=== PATIENT | male | born 1935 | race Caucasian/White ===

== ENCOUNTER 2022-12-04 12:13 | Outpatient (OUT) | payer MEDICARE, SELFPAY ==
--- NOTE | 2022-12-04 13:01 | PM.CN ---
Consult Note: HPI Data of Consult Patient: new to practice Consult date: 12/04/22 Requesting Physician: Timi Toledo MD Primary Care Provider: Non-Staff Physician, Consult Narrative Reason for consult: Low back pain Narrative: Doris 87yom who presents for evaluation. Longstanding low back pain that is worsened with standing and ambulation. Pain ongoing for years, but now worse. Denies specific trauma. Lumbar CT shows significant facet arthropathy in the lower lumbar spine. Has completed >6 weeks of provider directed home exercise program, without relief. Primarily utilizes tylenol, has tried tramadol before, with little relief. Denies adverse medication side effects. cc:: CC: Timi Toledo MD Review of Systems ROS Status of ROS 10 or more systems reviewed and unremarkable except as noted in history and below Exam Constitutional Common normals: no apparent distress, oriented x3 and healthy appearing Respiratory Common normals: normal respiratory effort Effort & inspection: able to speak in complete sentences Back & Pelvis Other: Tenderness to palpation in lower spine and paraspinal musculature. Pain elicited with flexion, extension, lateral rotation of lumbar spine. Facet loading maneuvers are positive bilaterally. Strength and sensation noted to be unremarkable except for decreased strength of 4/5 in bilateral quadriceps femoris, anterior tibialis. Coordination intact, gait mildly antalgic. Extremity Common normals: normal to inspection Neuro Common normals: oriented x3, CN's II-XII intact bilaterally and no focal motor deficits Psych Common normals: mental status grossly normal and cooperative Assessment and Plan Assessment and Plan (1) Lumbar stenosis with neurogenic claudication: (2) Lumbar spondylosis: Plan Doris 87yom who presents for evaluation. Failed >6 weeks of conservative measures, as noted above. Imaging reviewed, as noted above. Given symptoms and imaging findings, prudent to attempt diagnostic bilateral L4-5, L5-S1 medial branch blocks under fluoroscopic guidance with the intention of proceeding to radiofrequency ablation. He is in agreement. Medications reviewed. Will trial T#3 bid prn, obtain UDS today. Follow up after procedure complete.
== END 2022-12-04 12:14 | disposition home or self-care (01) ==
PROVIDERS: Visit Provider Anesthesiology
DX: M47.816 Spondylosis without myelopathy or radiculopathy, lumbar region (principal); M48.062 Spinal stenosis, lumbar region with neurogenic claudication
CPT/HCPCS: G0463

== ENCOUNTER 2023-01-01 09:48 | Day surgery (SDC) | payer MEDICARE, SELFPAY ==
[2023-01-01 10:54] VITALS: BP 125/86; PULSE 74; RESP 14; TEMP 36.3; O2SAT 95
[2023-01-01] MEDS: TRIAMCINOLONE ACETONIDE 40 MG/ML VIAL INJ (11:47)
[2023-01-01] MEDS: BUPIVACAINE HCL 0.25% PF 25 MG/10 ML VIAL INJ (11:47)
[2023-01-01] MEDS: LIDOCAINE HCL 2% PF 100 MG/5 ML VIAL INJ (11:47)
--- NOTE | 2023-01-01 11:47 | W.PM.PROCNOT ---
Date of procedure: 01/01/23 Pre-op diagnosis: Lumbar spondylosis Post-op diagnosis: same as pre-op Procedure: Procedure: Bilateral L4-5, L5-S1 medial branch block Medications: Bupivacaine 0.25% 4cc The patient was seen and examined in the preoperative holding area.? An informed consent was obtained and placed on the chart.? The patient was brought to the medical procedure unit and placed in the prone position.? A timeout was completed verifying correct patient, procedure site, positioning, plan, and special equipment.? Using aseptic technique, the needle was placed at left L4. Under direct fluoroscopic visualization a Quincke-tipped spinal needle was advanced to the junction of the superior articulating process with the transverse process at the designated medial branch segment.? Preceded by negative aspiration, the above-mentioned injectate was placed in 1 mL aliquots.? The procedure was repeated at left L5, S1.? The needle was removed and insertion site was covered. The same procedure, at the same levels, was completed on the right side. The patient was taken to the postprocedural recovery area and monitored for an appropriate length of time before found suitable for discharge in the company of a responsible adult. Anesthesia: Local Surgeon: Timi Toledo Pathology: none sent Condition: stable Disposition: no change
[2023-01-01 11:48] VITALS: BP 127/88; BP 136/77; PULSE 102; PULSE 84; RESP 18; O2SAT 97
== END 2023-01-01 12:02 | disposition home or self-care (01) ==
PROVIDERS: Visit Provider Anesthesiology
DX: M47.816 Spondylosis without myelopathy or radiculopathy, lumbar region (principal)
CPT/HCPCS: 64493; 64494

== ENCOUNTER 2023-01-17 14:08 | Outpatient (OUT) | payer MEDICARE, SELFPAY ==
--- NOTE | 2023-01-17 14:38 | PM.CN ---
Consult Note: HPI Data of Consult Patient: known to practice within the last 3 years Requesting Physician: Sana Smith NP Primary Care Provider: Non-Staff Physician, Consult Narrative Reason for consult: F/U Narrative: Vance Cosme a pleasant 77 year old male presents for evaluation of chronic low back pain and bilateral leg weakness. Today rating pain 3-4/10, patient notices increase in pain when walking and standing. Decrease in pain and weakness with sitting. Patient recently underwent bilateral L4-5 L5-S1 MBB #1 with 0% pain relief or functional improvement. Patient would like to discuss additional medication options and injection therapy. Daughter and spouse present for today's visit. cc:: CC: Sana Smith NP Review of Systems ROS Status of ROS 10 or more systems reviewed and unremarkable except as noted in history and below Musculoskeletal Reports: back pain and muscle weakness Meds Home Medications and Allergies Home Medications Medication Instructions Recorded Confirmed Type acetaminophen 300 mg-codeine 30 mg 1 tab PO BID PRN pain 12/04/22 01/01/23 History tablet acetaminophen 300 mg-codeine 30 mg 1 tab PO BID PRN pain #60 tabs 12/04/22 01/01/23 Rx tablet acetaminophen 650 mg 650 mg PO Q8H PRN pain 12/04/22 01/01/23 History tablet,extended release (8 Hour Pain Reliever) apixaban 5 mg tablet (Eliquis) 5 mg PO BID 12/04/22 01/01/23 History ascorbic acid (vitamin C) 500 mg 500 mg PO DAILY 12/04/22 01/01/23 History tablet (C-500) cholecalciferol (vitamin D3) 25 25 mcg PO DAILY 12/04/22 01/01/23 History mcg (1,000 unit) tablet (Vitamin D3) furosemide 20 mg tablet (Lasix) 20 mg PO DAILY 12/04/22 01/01/23 History magnesium 200 mg tablet 400 mg PO DAILY 12/04/22 01/01/23 History metoprolol succinate 25 mg 25 mg PO BID 12/04/22 01/01/23 History tablet,extended release 24 hr (Toprol XL) multivitamin 1 tab PO DAILY 12/04/22 01/01/23 History vitamin E 268 mg (400 unit) capsule 268 mg PO DAILY 12/04/22 01/01/23 History Allergies Allergy/AdvReac Type Severity Reaction Status Date / Time No Known Drug Allergies Allergy Verified 01/01/23 10:53 Exam Constitutional Documenting provider has reviewed patient's vital signs: yes Common normals: no apparent distress, oriented x3, healthy appearing, alert and well nourished General appearance: cooperative HENMT Common normals: normocephalic, hearing grossly normal bilaterally and moist oral mucous membranes Head and scalp: normocephalic Eye Common normals: PERRL Pupil: PERRL Neck & C-Spine Common normals: full ROM General: normal visual inspection Chest Common normals: inspection of chest normal Respiratory Common normals: normal respiratory effort, no retractions and no use of accessory muscles Back & Pelvis Lumbar spine/lower back: ROM limited, pain with ROM and straight leg raise negative bilaterally Other: weakness upon standing and with walking symptoms improved with sitting positive facet loading bilaterally Extremity Common normals: normal to inspection and full ROM Neuro Common normals: oriented x3, CN's II-XII intact bilaterally, moves all extremities, no focal motor deficits, no sensory deficits noted and deep tendon reflexes 2+ bilaterally Sensorium/orientation: alert Motor exam: strength 5/5 throughout and no movement abnormalities noted Psych Common normals: mental status grossly normal, thought process normal, cooperative, affect normal, speech normal and activity/motor behavior normal Speech: normal speech Thought process: normal thought process Results Additional Findings Additional findings: I have checked an [place] report on this patient today and there are no aberrancies noted in the prescribing history.?? A drug screen was completed and reviewed within the last year, and if there has not been a drug screen completed we ordered one today to monitor higher risk, state monitored pain medication use. As part of providing excellent, safe, comprehensive care, the following was completed at our patient's visit: 1. A medication reconciliation and review to ensure accurate knowledge of current/active medications, including asking our patients to inform us about any [id number] medications or herbal remedies/nutritional supplements/alternative remedies. 2. A review to specifically ensure our patients have had annual screening for: elevated body mass index (BMI), tobacco use, screening for depression, and screening for unhealthy alcohol use. When screening is concerning, patients are provided with education and the specific recommendation to discuss the concerning health issue and treatment options with their primary care provider. Assessment and Plan Assessment and Plan (1) Lumbar stenosis with neurogenic claudication: Assessment and Plan: The patient has had over 3 months of moderate to severe low back pain with functional impairment and inadequate response to conservative care including NSAIDS (unless there are contraindication such as concurrent blood thinners), multiple oral or topical pain medications, and home exercise program/physical therapy.? Patient has completed >6 weeks of guided home exercise program and/or formal physical therapy program without relief of their symptoms.? I have reviewed the imaging of the lumbar spine and no red flags were identified.? The imaging reveals radiographic findings consistent with lumbar stenosis and radiculopathy We discussed the risks and benefits of the procedure with the patient, and we are NOT planning on using sedation as outlined in the guidelines from Medicare unless there is a documented reason that sedation would be strongly recommended.?? ?The procedure will be completed with fluoroscopic guidance.? based on physical exam and previous imaging plan on right L3-4 TFESI followed by right L4-5 TFESI 2 weeks apart to improve symptoms and increase quality of life. (2) Lumbar spondylosis: (3) Low back pain: Plan tylenol #3 not effective, stop start hydrocodone-acetaminophen 5-325 mg BID PRN 7 day supply, call to discuss response right L3-4 TFESI followed by right L4-5 TFESI two weeks apart under fluoroscopy lumbar MRI without contrast, po valium 5mg 30 minutes prior to procedure f/u after procedures
== END 2023-01-17 14:09 | disposition home or self-care (01) ==
PROVIDERS: Visit Provider Nurse Practitioner
DX: M47.816 Spondylosis without myelopathy or radiculopathy, lumbar region (principal); M48.062 Spinal stenosis, lumbar region with neurogenic claudication; M54.50 Low back pain, unspecified
CPT/HCPCS: G0463

== ENCOUNTER 2023-01-30 09:33 | Outpatient (OUT) | payer MEDICARE, SELFPAY ==
--- NOTE | 2023-01-30 | XR_ITS ---
The [address] [address] Patient Name: MARTHA KIDD MRN: [id number] date: 1935 Sex: M Assigned Patient Location: MRI Current Patient Location: MRI Accession/Order Number: [id number] Exam Date: 01/30/2023 10:05 Report Date: 01/30/2023 10:37 At the request of: ASHKAN RUIZ Procedure: XR foreign body eye EXAMINATION: XR foreign body eye HISTORY: Foreign body eye for MRI COMPARISON: No relevant comparison available. FINDINGS: ORBITS: Negative for a metallic foreign body. OTHER: Negative. XR/XR foreign body eye IMPRESSION: 1. No metallic foreign body within the orbits. Electronically authenticated by: DONA AGUERO Date: 01/30/2023 10:37
--- NOTE | 2023-01-30 09:42 | MR_ITS ---
The [place] [id number] Patient Name: MARTHA KIDD MRN: [id number] date: 1935 Sex: M Assigned Patient Location: MRI Current Patient Location: MRI Accession/Order Number: [id number] Exam Date: 01/30/2023 10:13 Report Date: 01/30/2023 16:02 At the request of: ASHKAN RUIZ Procedure: MR lumbar spine wo con Exam: MR scan lumbar spine without contrast TECHNIQUE: Sagittal T1, RADHA T2, STIR, axial T1 and T2 images without contrast performed through the lumbar spine. COMPARISON: MR scan performed 06/16/2010 FINDINGS: Lumbar vertebral bodies and disc spaces are normal in height and alignment. The marrow signal is normal. The conus lies at T12 and is normal in appearance. The neural foramina are patent. L5-S1: Facet arthropathy and minimal disc bulge without stenosis. L4-L5: Facet arthropathy and minimal disc bulge with mild effacement thecal sac. L3-L4: Disc bulge and mild facet hypertrophy without stenosis. L2-L3: Disc bulge and mild effacement thecal sac. L1-L2: Normal. T12-L1: Normal. The vertebral bodies and disc spaces are otherwise normal in appearance.. Compared to the prior examination there is no interval change. MR/MR lumbar spine wo con IMPRESSION: 1. Mild discogenic disease and facet arthropathy with mild effacement thecal sac at the L4-L5 level. Electronically authenticated by: Dino HAWKINS Date: 01/30/2023 16:02
== END 2023-01-30 09:34 | disposition home or self-care (01) ==
LOC: MRI 09:35
PROVIDERS: Visit Provider Nurse Practitioner
DX: M48.062 Spinal stenosis, lumbar region with neurogenic claudication (principal); M51.26 Other intervertebral disc displacement, lumbar region
CPT/HCPCS: 70030; 72148

== ENCOUNTER 2023-03-05 11:20 | Day surgery (SDC) | payer MEDICARE, SELFPAY ==
[2023-03-05 12:01] VITALS: BP 118/80; PULSE 88; RESP 14; TEMP 36.5; O2SAT 97
[2023-03-05 12:34] VITALS: BP 110/61; BP 112/69; PULSE 77; PULSE 80; RESP 18; O2SAT 97; O2SAT 98
[2023-03-05] MEDS: 0.9 % SODIUM CHLORIDE 10 ML INJ (12:36)
--- NOTE | 2023-03-05 12:36 | W.PM.PROCNOT ---
Date of procedure: 03/05/23 Pre-op diagnosis: Lumbar stenosis with neurogenic claudication Post-op diagnosis: same as pre-op Procedure: Procedure: Bilateral L3-4 transforaminal epidural steroid injection Medications: Bupivacaine 0.25% 2cc, normal saline 0.9% 1cc, dexamethasone 10mg The patient was seen and examined in the preoperative holding area.? Informed consent was obtained and placed on the chart.? Patient was brought to the medical procedure unit and placed in the prone position where a timeout was completed verifying the correct patient, procedure site, position, and planned special equipment using sterile aseptic technique.? Under direct fluoroscopic visualization a 25-gauge Quincke tipped spinal needle was advanced at level left L3-4 to the designated neural foramen where contrast dye was injected to show adequate spread.? There was no evidence of vascular or adverse uptake.? Epidural spread was appreciated.? The above-mentioned injectate was then placed in a 1.5 mL aliquot preceded by negative aspiration.? The needle was removed. The same procedure, at the same level, was completed on the opposite side. ? Patient was taken to the postprocedural recovery area and monitored for an appropriate length of time before found suitable for discharge in the accompaniment of a responsible adult. Anesthesia: Local Surgeon: Timi Toledo Pathology: none sent Condition: stable Disposition: no change
[2023-03-05] MEDS: BUPIVACAINE HCL 0.25% PF 25 MG/10 ML VIAL INJ (12:37)
[2023-03-05] MEDS: DEXAMETHASONE SOD PHOS 10 MG/ML VIAL INJ (12:37)
[2023-03-05] MEDS: LIDOCAINE HCL 2% PF 100 MG/5 ML VIAL 3 ML INJ (12:38)
[2023-03-05] MEDS: IOHEXOL 240 MG/ML - 10 ML VIAL 24 MG INJ (12:38)
== END 2023-03-05 12:44 | disposition home or self-care (01) ==
PROVIDERS: Visit Provider Anesthesiology
DX: M48.062 Spinal stenosis, lumbar region with neurogenic claudication (principal)
CPT/HCPCS: 64483; J1100; Q9966

== ENCOUNTER 2023-03-26 11:05 | Day surgery (SDC) | payer MEDICARE, SELFPAY ==
[2023-03-26 11:18] VITALS: BP 120/85; PULSE 84; RESP 18; TEMP 36.2; O2SAT 97
[2023-03-26 11:52] VITALS: BP 127/73; BP 131/66; PULSE 100; PULSE 76; RESP 18; O2SAT 92; O2SAT 97
--- NOTE | 2023-03-26 11:54 | W.PM.PROCNOT ---
Date of procedure: 03/26/23 Pre-op diagnosis: Lumbar stenosis with neurogenic claudication Post-op diagnosis: same as pre-op Procedure: Procedure: Bilateral L4-5 transforaminal epidural steroid injection Medications: Bupivacaine 0.25% 2cc, lidocaine 2% 1cc, kenalog 80mg The patient was seen and examined in the preoperative holding area.? Informed consent was obtained and placed on the chart.? Patient was brought to the medical procedure unit and placed in the prone position where a timeout was completed verifying the correct patient, procedure site, position, and planned special equipment using sterile aseptic technique.? Under direct fluoroscopic visualization a 25-gauge Quincke tipped spinal needle was advanced at level left L4-5 to the designated neural foramen where contrast dye was injected to show adequate spread.? There was no evidence of vascular or adverse uptake.? Epidural spread was appreciated.? The above-mentioned injectate was then placed in a 1.5 mL aliquot preceded by negative aspiration.? The needle was removed. The same procedure, at the same level, was completed on the opposite side. ? Patient was taken to the postprocedural recovery area and monitored for an appropriate length of time before found suitable for discharge in the accompaniment of a responsible adult. Anesthesia: Local Surgeon: Timi Toledo Pathology: none sent Condition: stable Disposition: no change
[2023-03-26] MEDS: 0.9 % SODIUM CHLORIDE 10 ML INJ (11:57)
[2023-03-26] MEDS: LIDOCAINE HCL 2% PF 100 MG/5 ML VIAL 4 ML INJ (11:57)
[2023-03-26] MEDS: BUPIVACAINE HCL 0.25% PF 25 MG/10 ML VIAL INJ (11:57)
[2023-03-26] MEDS: IOHEXOL 240 MG/ML - 10 ML VIAL 24 MG INJ (11:57)
[2023-03-26] MEDS: TRIAMCINOLONE ACETONIDE 40 MG/ML VIAL 80 MG INJ (11:58)
--- NOTE | 2023-03-26 12:36 | PC.NURSE ---
Pt returned to pacu stating he was having pain to lower back and burning. Pt then stated he was feeling very flushed and hot. A cool cloth was placed on his head while he rested on the stretcher. Pt then stated he needed to use the restroom, pt was unable to ambulate and was taken in a wheelchair. Pt proceeded to have a bowel movement and then stated he was experiencing heartburn. Pt was then assisted back to wheelchair. Vitals were obtained and Dr Toledo notified. Pt was then taken to ER via wheelchair with daughter.
[2023-03-26 12:39] VITALS: BP 124/83; PULSE 94; RESP 18; O2SAT 97
== END 2023-03-26 12:25 | disposition home or self-care (01) ==
PROVIDERS: Visit Provider Anesthesiology
DX: M48.062 Spinal stenosis, lumbar region with neurogenic claudication (principal); R07.9 Chest pain, unspecified; Z79.01 Long term (current) use of anticoagulants; I10 Essential (primary) hypertension; Z79.899 Other long term (current) drug therapy; I48.20 Chronic atrial fibrillation, unspecified
CPT/HCPCS: 36415; 64483; 71046; 80048; 80076; 83690; 83880; 84484; 85025; 93005; 99285; Q9966

== ENCOUNTER 2023-03-26 12:30 | Emergency (ER) | payer MEDICARE, SELFPAY ==
[2023-03-26] VITALS (12 sets, daily range): BP systolic 112–138; BP diastolic 78–87; PULSE 91–114; RESP 16–25; TEMP 36.3; O2SAT 95–97; BMI 29.4
--- NOTE | 2023-03-26 13:02 | XR_ITS ---
The [address] [address] Patient Name: MARTHA KIDD MRN: [id number] date: 1935 Sex: M Assigned Patient Location: ER Current Patient Location: ER Accession/Order Number: [id number] Exam Date: 03/26/2023 13:20 Report Date: 03/26/2023 13:44 At the request of: DEBBY MORALES Procedure: XR chest 2V EXAM: XR chest 2V HISTORY: chest pain COMPARISON: None. TECHNIQUE: PA and lateral views of the chest. FINDINGS: The cardiomediastinal silhouette is enlarged. Interstitial opacity. There is no pneumothorax. No pleural effusion is noted. The osseous structures are intact. XR/XR chest 2V IMPRESSION: Cardiomegaly with congestion. Superimposed atypical pneumonia cannot be excluded. Electronically authenticated by: SHERI DIETRICH Date: 03/26/2023 13:44
--- NOTE | 2023-03-26 13:02 | ECG_ITS ---
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
--- NOTE | 2023-03-26 13:17 | ED_ITS ---
HPI - Chest Pain General Chief Complaint: Chest Pain Stated Complaint: CHEST PAIN Time Seen by Provider: 03/26/23 13:10 Source: patient Mode of arrival: Wheelchair Limitations: no limitations History of Present Illness HPI narrative: Patient is an 87-year-old male with a history of A-fib, anticoagulated with Eliquis who presents to the emergency department from PACU after an epidural injection to his low back for pain management. Patient received an injection in the low back, he had a significant amount of pain with the injection and developed substernal chest pain which he describes as burning, heartburn. He apparently had a similar episode after an injection to his low back 1 year ago in [place], at which time he developed similar chest discomfort and shortness of breath. He denies shortness of breath at this time. He states the chest pain is essentially resolved completely. He has had no recent fevers, chills, cough, congestion, vomiting, diarrhea. He has had no swelling of the legs. Risk Factors Coronary artery disease risk factors: hypertension Related Data Home Medications Medication Instructions Recorded Confirmed acetaminophen 650 mg 650 mg PO Q8H PRN pain 12/04/22 03/26/23 tablet,extended release (8 Hour Pain Reliever) apixaban 5 mg tablet (Eliquis) 5 mg PO BID 12/04/22 03/26/23 ascorbic acid (vitamin C) 500 mg 500 mg PO DAILY 12/04/22 03/26/23 tablet (C-500) cholecalciferol (vitamin D3) 25 25 mcg PO DAILY 12/04/22 03/26/23 mcg (1,000 unit) tablet (Vitamin D3) furosemide 20 mg tablet (Lasix) 20 mg PO DAILY 12/04/22 03/26/23 magnesium 200 mg tablet 400 mg PO DAILY 12/04/22 03/26/23 metoprolol succinate 25 mg 25 mg PO BID 12/04/22 03/26/23 tablet,extended release 24 hr (Toprol XL) multivitamin 1 tab PO DAILY 12/04/22 03/26/23 vitamin E 268 mg (400 unit) capsule 268 mg PO DAILY 12/04/22 03/26/23 Previous Rx's Medication Instructions Recorded hydrocodone 7.5 mg-acetaminophen 1 tab PO BID PRN pain #60 tabs 02/14/23 325 mg tablet Allergies Allergy/AdvReac Type Severity Reaction Status Date / Time No Known Drug Allergies Allergy Verified 03/26/23 12:52 Review of Systems ROS Constitutional Denies: fever or chills Ears, nose, mouth, and throat Denies: throat pain Cardiovascular Reports: chest pain; Denies: palpitations Respiratory Denies: shortness of breath or cough Gastrointestinal Denies: nausea or vomiting Genitourinary Denies: painful urination Musculoskeletal Reports: back pain; Denies: neck pain, extremity pain or extremity swelling Integumentary/Breast Denies: rash Neurological Denies: headache PFSH PFS Social History Smoking status: Never smoker Exam Narrative Exam Narrative: Gen.: Awake, alert, in no distress Head: Normocephalic, atraumatic ENT: Moist mucous membranes Respiratory: No respiratory distress, lungs clear bilaterally Cardio: Tachycardia Extremities: Moves extremities equally, no pedal edema; normal dorsiflexion and plantarflexion of the lower extremities Back: No bony tenderness of the T-spine or L-spine with dried iodine to the low back, no swelling or drainage noted. Psych: Normal mood and affect Neuro: No focal neuro deficit Skin: Warm, dry, intact Constitutional Vital Signs, click to edit/add: Last Vital Signs Temp 97.4 F L 03/26/23 12:52 Pulse 105 H 03/26/23 14:20 Resp 16 03/26/23 14:20 BP 138/87 03/26/23 12:52 Pulse Ox 96 03/26/23 14:20 O2 Del Method Room Air 03/26/23 12:52 Course Vital Signs Vital signs: Vital Signs Blood Pressure 138/87 03/26/23 12:43 Temperature 97.4 F L 03/26/23 12:52 Pulse Rate 105 H 03/26/23 14:20 Respiratory Rate 16 03/26/23 14:20 Blood Pressure 138/87 03/26/23 12:52 Pulse Oximetry 96 03/26/23 14:20 Oxygen Delivery Method Room Air 03/26/23 12:52 MDM - Chest Pain MDM Narrative Medical decision making narrative: Patient with no complaints of pain while in the emergency department in the chest, he has no shortness of breath. He is in A-fib, he is chronically in A- fib at home and anticoagulated for this. Chest x-ray shows question of pulmonar y vascular congestion and the radiologist does not feel he can rule out pneumonia, although the patient has no cough or congestion and has a normal BNP with no peripheral edema. He had 2 normal troponins in the ER. Patient was reevaluated by attending physician, treatment plan discussed with the patient and his and daughter at bedside who are in agreement with discharge home and close follow-up. He is discharged home to follow-up closely with PCP and return to the ER if symptoms change or worsen. Medical Records Data Attestation: I reviewed the patient's medical records. Lab Data Attestation: I reviewed the patient's lab results. Labs: Lab Results 03/26/23 03/26/23 Range/Units 13:10 14:15 WBC 4.2 (4.0-11.0) 10^3/uL RBC 4.97 (4.70-6.10) 10^6/uL Hgb 15.9 (14.0-18.0) g/dL Hct 48.6 (42.0-54.0) % MCV 97.8 H (80.0-94.0) fL MCH 32.0 (25.9-34.0) pg MCHC 32.7 (29.9-35.2) g/dL RDW 12.7 (11.0-15.0) % Plt Count 210 (150-450) 10^3/uL MPV 9.6 (9.5-13.5) fL Neut % (Auto) 73.4 (43.0-75.0) % Lymph % (Auto) 19.2 L (20.5-60.0) % [place] % (Auto) 1.0 L (1.7-12.0) % Eos % (Auto) 1.4 (0.9-7.0) % Baso % (Auto) 0.7 (0.2-2.0) % Neut # (Auto) 3.1 (1.4-6.5) 10^3/uL Lymph # (Auto) 0.8 L (1.2-3.8) 10^3/uL [place] # (Auto) 0.0 L (0.3-0.8) 10^3/uL Eos # (Auto) 0.1 (0.0-0.7) 10^3/uL Baso # (Auto) 0.0 (0.0-0.1) 10^3/uL Abs Immat Gran (auto) 0.18 H (0.00-0.03) 10^3/uL Imm/Tot Granulo (auto) 4.3 H (0.0-0.5) % Sodium 136 (136-145) mmol/L Potassium 4.1 (3.5-5.1) mmol/L Chloride 99 (98-107) mmol/L Carbon Dioxide 28.5 (21.0-32.0) mmol/L Anion Gap 12.6 BUN 20.0 H (7.0-18.0) mg/dL Creatinine 1.00 (0.70-1.30) mg/dL Est GFR ( Amer) >60 (>=60) Est GFR (Non-Af Amer) >60 (>=60) BUN/Creatinine Ratio 20.0 Glucose 125 H (74-106) mg/dL Calcium 9.9 (8.5-10.1) mg/dL Total Bilirubin 1.0 (0.2-1.0) mg/dL Direct Bilirubin 0.3 H (0.0-0.2) mg/dL AST 20 (15-37) U/L ALT 30 (16-63) U/L Alkaline Phosphatase 80 (46-116) U/L Troponin I High Sens 10.9 8.2 (4.0-76.1) pg/mL NT-Pro-B Natriuret Pep 1207.0 (<=1800.0) pg/mL Total Protein 8.6 H (6.4-8.2) g/dL Albumin 3.9 (3.4-5.0) g/dL Globulin 4.7 g/dL Albumin/Globulin Ratio 0.8 Lipase 36.0 (16.0-77.0) U/L Imaging Data Chest x-ray: Attestation: I have reviewed the pertinent imaging results. ECG Data Attestation: I personally reviewed and interpreted this ECG as follows: (Atrial fibrillation at a rate of 86, no acute ST elevation. Artifact noted. No ectopy. EKG reviewed by attending physician) ECG interpretation date: 03/26/23 Heart Score History: Slightly/Non-Suspicious ECG: Normal Age: >65 years Risk Factors: 1 or 2 Risk Factors Troponin: <Normal Limit Total Heart Score Recommendations & Risks:: 3 Discharge Plan Discharge Chief Complaint: Chest Pain Clinical Impression: Chest pain Patient Disposition: Home, Self-Care Time of Disposition Decision: 15:08 Condition: Good Prescriptions / Home Meds: No Action hydrocodone-acetaminophen 7.5-325 mg tablet 1 tab PO BID PRN (Reason: pain) Qty: 60 0RF Eliquis 5 mg tablet 5 mg PO BID metoprolol succinate [Toprol XL] 25 mg tablet extended release 24 hr 25 mg PO BID furosemide [Lasix] 20 mg tablet 20 mg PO DAILY Rx Instructions: Fridays acetaminophen [8 Hour Pain Reliever] 650 mg tablet extended release 650 mg PO Q8H PRN (Reason: pain) multivitamin Tablet 1 tab PO DAILY ascorbic acid (vitamin C) [C-500] 500 mg tablet 500 mg PO DAILY magnesium 200 mg tablet 400 mg PO DAILY cholecalciferol (vitamin D3) [Vitamin D3] 25 mcg (1,000 unit) tablet 25 mcg PO DAILY vitamin E 268 mg (400 unit) capsule 268 mg PO DAILY Instructions: Chest Pain (ED) Stand Alone Forms: Portal Instructions Referrals: Physician,Non-Staff, MD [Primary Care Provider] - 1 week
[2023-03-26 13:42] LABS: Basophils Percent Auto 0.7 % (0.2-2.0); Eosinophils Absolute Auto 0.1 10^3/uL (0.0-0.7); Eosinophils Percent Auto 1.4 % (0.9-7.0); Hematocrit 48.6 % (42.0-54.0); Hemoglobin 15.9 g/dL (14.0-18.0); Immature Granulocytes Abs Auto 0.18 10^3/uL (0.00-0.03); Immature Granulocytes Pct Auto 4.3 % (0.0-0.5); Lymphocytes Absolute Auto 0.8 10^3/uL (1.2-3.8); Lymphocytes Percent Auto 19.2 % (20.5-60.0); Mean Corpuscular HGB Conc 32.7 g/dL (29.9-35.2); Mean Corpuscular Volume 97.8 fL (80.0-94.0); Mean Platelet Volume 9.6 fL (9.5-13.5); Neutrophils Absolute Auto 3.1 10^3/uL (1.4-6.5); Neutrophils Percent Auto 73.4 % (43.0-75.0); Platelet Count 210 10^3/uL (150-450); Red Blood Count 4.97 10^6/uL (4.70-6.10); Red Cell Distribution Width 12.7 % (11.0-15.0); White Blood Count 4.2 10^3/uL (4.0-11.0)
[2023-03-26] MEDS: ASPIRIN 81 MG TAB.CHEW 162 MG PO (13:42)
[2023-03-26 13:53] LABS: Alanine Aminotransferase 30 U/L (16-63); Albumin Globulin Ratio 0.8; Albumin Level 3.9 g/dL (3.4-5.0); Alkaline Phosphatase 80 U/L (46-116); Aspartate Amino Transferase 20 U/L (15-37); Bilirubin Direct 0.3 mg/dL (0.0-0.2); Globulin 4.7 g/dL; Total Protein 8.6 g/dL (6.4-8.2)
[2023-03-26 13:57] LABS: Anion Gap 12.6; Calcium 9.9 mg/dL (8.5-10.1); Carbon Dioxide 28.5 mmol/L (21.0-32.0); Chloride 99 mmol/L (98-107); Estimated GFR (African America >60 (>=60); Estimated GFR (Non-African Ame >60 (>=60); Glucose 125 mg/dL (74-106); Potassium 4.1 mmol/L (3.5-5.1); Sodium 136 mmol/L (136-145); Troponin I High Sensitivity 10.9 pg/mL (4.0-76.1)
[2023-03-26 14:40] LABS: Troponin I High Sensitivity 8.2 pg/mL (4.0-76.1)
== END 2023-03-26 15:51 | disposition home or self-care (01) ==
PROVIDERS: Physician Assistant; Emergency Provider Emergency Medicine
DX: R07.9 Chest pain, unspecified (principal); Z79.01 Long term (current) use of anticoagulants; I10 Essential (primary) hypertension; Z79.899 Other long term (current) drug therapy; I48.20 Chronic atrial fibrillation, unspecified
CPT/HCPCS: 36415; 71046; 80048; 80076; 83690; 83880; 84484; 85025; 93005; 99285

== ENCOUNTER 2023-04-05 12:58 | Outpatient (OUT) | payer MEDICARE, SELFPAY ==
--- OUTSIDE RECORDS SUMMARY | 2023-04-05 13:01 | XMS_ITS | CCD ---
Author Name Unknown Address [facility] [address] [place] [id number] Organization [facility] Care Team Providers Care [facility] Hand Name Role Phone SANGEETHA BARRAGAN Attending Chilango Toledo MD, Timi Kenney Attending Unavailable Tre BETANCOURT, Timi Kenney Attending Unavailable Tre BETANCOURT, Timi Kenney Attending Unavailable Tre BETANCOURT, Timi Kenney Attending Unavailable Encounters Encounter Date Encounter Type Care Provider Facility Start: 03-26-2023 End: 03-27-2023 ambulatory Timi Toledo MD Facility: [facility] Start: 03-12-2023 End: 03-12-2023 ambulatory SANGEETHA BARRAGAN Not Available Start: 03-05-2023 End: 03-06-2023 ambulatory Timi Toledo MD Facility: [facility] Start: 01-01-2023 End: 01-02-2023 ambulatory Timi Toledo MD Facility: [facility] Start: 12-04-2022 End: 12-05-2022 ambulatory Timi Toledo MD Facility: [facility] Payers Date Payer Category Payer Private Health Insurance 2021 Medicare [id number] 1935 Unknown [id number] 1935 Unknown [id number] 1935 Unknown [id number] 1935 Unknown [id number] 1935 Unknown [id number] Summary Purpose Family History No Family History Records FoundNo Family History Records Found Advance Directives No Advanced Directives Records FoundNo Advanced Directives Records Found Additional Source Comments (unrecognized sect ion and content) No Status Records FoundNo Status Records Found INFORMATION SOURCE (unrecogn ized section and content) DATE CREATED AUTHOR 03/14/2023 [facility] DATE CREATED AUTHOR AUTHOR'S ORGANIZ ATION 03/30/2023 [facility] FOR RECORDS PERTAINING TO PATIENTS WHO ARE OR HAVE BEEN ENROLLED IN A CHEMICAL DEPENDENCY/SUBSTANCEABUSE PROGRAM, SOME INFORMATION MAY BE OMITTED. This clinical summary was aggregated from multiple sources. Caution should be exercised in using it in the provision of clinical care. This summary normalizes information from multiple sources, and as a consequence, information in this document may materially change the coding, format and clinical context of patient data. In addition, data may be omitted in some cases. CLINICAL DECISIONS SHOULD BE BASED ON THE PRIMARY CLINICAL RECORDS. [facility]. provides no warranty or guarantee of the accuracy or completeness of information in this document.
--- NOTE | 2023-04-05 13:40 | P.CN_ITS ---
Consult Note: HPI Data of Consult Patient: known to practice within the last 3 years Requesting Physician: Sana Smith NP Primary Care Provider: Non-Staff Physician, MD Consult Narrative Reason for consult: F/U Narrative: Vance Cosme a pleasant 77 year old male presents for evaluation of chronic low back pain and bilateral leg weakness. Today rating pain 3/10 bilateral low back, intermittent. Patient does not report improvement from bilateral L3-4 L4-5 TFESIs. Patient finds mild benefit from tramadol 50mg TID PRN for moderate to se dario pain, mild constipation. cc:: CC: Sana Smith NP Review of Systems ROS Status of ROS 10 or more systems reviewed and unremark able except as noted in history and below Musculoskeletal Reports: back pain PFSH PFSH Social History Smoking status: Never smoker Meds Home Medications and Allergies Home Medications Medication Instructions Recorded Confirmed Type acetaminophen 650 mg 650 mg PO Q8H PRN pain 12/04/22 03/26/23 History tablet,extended release (8 Hour Pain Reliever) apixaban 5 mg tablet (Eliquis) 5 mg PO BID 12/04/22 03/26/23 History ascorbic acid (vitamin C) 500 mg 500 mg PO DAILY 12/04/22 03/26/23 History tablet (C-500) cholecalciferol (vitamin D3) 25 25 mcg PO DAILY 12/04/22 03/26/23 History mcg (1,000 unit) tablet (Vitamin D3) furosemide 20 mg tablet (Lasix) 20 mg PO DAILY 12/04/22 03/26/23 History magnesium 200 mg tablet 400 mg PO DAILY 12/04/22 03/26/23 History metoprolol succinate 25 mg 25 mg PO BID 12/04/22 03/26/23 History tablet,extended release 24 hr (Toprol XL) multivitamin 1 tab PO DAILY 12/04/22 03/26/23 History vitamin E 268 mg (400 unit) capsule 268 mg PO DAILY 12/04/22 03/26/23 History hydrocodone 7.5 mg-acetaminophen 1 tab PO BID PRN pain #60 tabs 02/14/23 03/26/23 Rx 325 mg tablet Allergies Allergy/AdvReac Type Severity Reaction Status Date / Time No Known Drug Allergies Allergy Verified 03/26/23 12:52 Exam Constitutional Documenting provider has reviewed patient's vital signs: yes Common normals: no apparent distress, oriented x3, healthy appearing, alert and well nourished General appearance: cooperative HENMT Common normals: normocephalic, hearing grossly normal bilaterally and moist oral mucous membranes Head and scalp: normocephalic Eye Common normals: PERRL Pupil: PERRL Neck & C-Spine Common normals: full ROM General: normal visual inspection Chest Common normals: inspection of chest normal Respiratory Common normals: normal respiratory effort, no retractions and no use of accessory muscles Back & Pelvis Lumbar spine/lower back: ROM limited, pain with ROM and straight leg raise negative bilaterally Other: weakness upon standing and with walking symptoms improved with sitting positive facet loading bilaterally Extremity Common normals: normal to inspection and full ROM Neuro Common normals: oriented x3, CN's II-XII intact bilaterally, moves all extremities, no focal motor deficits, no sensory deficits noted and deep tendon reflexes 2+ bilaterally Sensorium/orientation: alert Motor exam: strength 5/5 throughout and no movement abnormalities noted Psych Common normals: mental status grossly normal, thought process normal, cooperative, affect normal, speech normal and activity/motor behavior normal Speech: normal speech Thought process: normal thought process Assessment and Plan Assessment and Plan (1) Lumbar stenosis with neurogenic claudication: (2) Lumbar spondylosis: (3) Chronic prescription opiate use: Assessment and Plan: I feel these medications are improving the patient's quality of life and allow them to tolerate activities of daily living as well as participate in recreational activity.? The patient does not report intolerable side effects. The patient is NOT opioid naive and non-pharmacologic and non-opioid treatment has failed to significantly relieve the patient's pain and improve functionality. The patient has a diagnosis that is related to a somatic or vis ceral pain etiology. ? ?? I reviewed with the patient the potential risks and side effects with the use of? opioid medications including but not limited to respiratory depression,? sedation, and even . I verified the patient has access to naloxone should? these effects occur. I advised the patient to avoid the use of any other? sedation substances including alcohol, THC, and benzodiazepines while? taking opioid medications due to the risk of compounding side effects and? detrimental outcomes. 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 drug screen, and opioid start talking forms. The patient was advised to let? their family know they had Naloxone in case they would need to administer? the medication.? ?? A drug screen was completed within the last year, and no aberrancies were noted regarding their use of controlled substances. The patient understands they are subject to the terms and conditions of the pain contract that they have signed. ? ?? I have checked an [place]AR[place] report on this patient today and there are no aberrancies noted in the prescribing history.? Plan start duloxetine 30mg hs, risks vs benefits and side effects discussed continue tramadol 50mg TID PRN moderate to severe pain continue colace for constipation consider L3-4 facets for future medial branch blocks f/u 3 months, sooner if needed
== END 2023-04-05 12:59 | disposition home or self-care (01) ==
LOC: PM 12:59
PROVIDERS: Visit Provider Nurse Practitioner
DX: M48.062 Spinal stenosis, lumbar region with neurogenic claudication (principal); M47.816 Spondylosis without myelopathy or radiculopathy, lumbar region; Z79.891 Long term (current) use of opiate analgesic
CPT/HCPCS: G0463

== ENCOUNTER 2023-07-04 12:42 | Outpatient (OUT) | payer MEDICARE, SELFPAY ==
--- NOTE | 2023-07-04 12:39 | P.CN_ITS ---
Consult Note: HPI Data of Consult Patient: known to practice within the last 3 years Requesting Physician: Sana Smith NP Primary Care Provider: Non-Staff Physician, MD Consult Narrative Reason for consult: F/U Narrative: Vance Cosme a pleasant 77 year old male presents for evaluation of chronic low back pain and bilateral leg weakness, as well as bilateral shoulder pain. Pain 0/10 today. In the past, no improvement from bilateral L3-4 and bilateral L4-5 TFESIs. Stopped tramadol as it caused constipation and did not help enough. Tylenol with mild benefit. No NSAIDs with eliquis. Could not tolerate cymablta as this caused shaking and weakness. Recently completed PT without improvement. Newer diagnosis of parkinsons. Patient reports bilateral shoulder pain at its worst is 6/10 left greater than right. Denies numbness tingling. cc:: CC: Sana Smith NP Review of Systems ROS Status of ROS 10 or more systems reviewed and unremark able except as noted in history and below Musculoskeletal Reports: back pain and joint pain PFSH PFSH Social History Smoking status: Never smoker Meds Home Medications and Allergies Home Medications ?Medication ?Instructions ?Recorded ?Confirmed ?Type acetaminophen 650 mg 650 mg PO Q8H PRN pain 12/04/22 03/26/23 History tablet,extended release (8 Hour Pain Reliever) apixaban 5 mg tablet (Eliquis) 5 mg PO BID 12/04/22 03/26/23 History ascorbic acid (vitamin C) 500 mg 500 mg PO DAILY 12/04/22 03/26/23 History tablet (C-500) cholecalciferol (vitamin D3) 25 25 mcg PO DAILY 12/04/22 03/26/23 History mcg (1,000 unit) tablet (Vitamin D3) furosemide 20 mg tablet (Lasix) 20 mg PO DAILY 12/04/22 03/26/23 History magnesium 200 mg tablet 400 mg PO DAILY 12/04/22 03/26/23 History metoprolol succinate 25 mg 25 mg PO BID 12/04/22 03/26/23 History tablet,extended release 24 hr (Toprol XL) multivitamin 1 tab PO DAILY 12/04/22 03/26/23 History vitamin E 268 mg (400 unit) capsule 268 mg PO DAILY 12/04/22 03/26/23 History hydrocodone 7.5 mg-acetaminophen 1 tab PO BID PRN pain #60 tabs 02/14/23 03/26/23 Rx 325 mg tablet Allergies Allergy/AdvReac Type Severity Reaction Status Date / Time No Known Drug Allergies Allergy Verified 03/26/23 12:52 Exam Constitutional Documenting provider has reviewed patient's vital signs: yes Common normals: no apparent distress, oriented x3, healthy appearing, alert and well nourished General appearance: cooperative HENMT Common normals: normocephalic, hearing grossly normal bilaterally and moist oral mucous membranes Head and scalp: normocephalic Eye Common normals: PERRL Pupil: PERRL Neck & C-Spine Common normals: full ROM General: normal visual inspection Chest Common normals: inspection of chest normal Respiratory Common normals: normal respiratory effort, no retractions and no use of accessory muscles Back & Pelvis Lumbar spine/lower back: ROM limited, pain with ROM and straight leg raise negative bilaterally Other: weakness upon standing and with walking symptoms improved with sitting positive facet loading bilaterally Extremity Common normals: normal to inspection and full ROM Right upper extremity: shoulder joint Left upper extremity: shoulder joint Other: bilateral shoulder pain, positive scratch test, positive empty can, tenderness over bilateral AC joints. ROM intact, painful. Neuro Common normals: oriented x3, CN's II-XII intact bilaterally, moves all extremities, no focal motor deficits, no sensory deficits noted and deep tendon reflexes 2+ bilaterally Sensorium/orientation: alert Motor exam: strength 5/5 throughout and no movement abnormalities noted Psych Common normals: mental status grossly normal, thought process normal, cooperative, affect normal, speech normal and activity/motor behavior normal Speech: normal speech Thought process: normal thought process Results Additional Findings Additional findings: If on a controlled substance or opioids, I have checked an [place]AR[place] report on this patient and there are no aberrancies noted in the prescribing history.??If on a controlled substance or opioid a drug screen was completed and reviewed within the last year, and if there has not been a drug screen completed we ordered one today to monitor higher risk, state monitored pain medication use. As part of providing excellent, safe, comprehensive care, the following was completed at our patient's visit: 1. A medication reconciliation and review to ensure accurate knowledge of current/active medications, including asking our patients to inform us about any [id number] medications or herbal remedies/nutritional supplements/alternative remedies. 2. A review to specifically ensure our patients have had annual screening for screening for depression, screening for tobacco use, and screening for unhealthy alcohol use. For concerning screenings had a discussion with the patient, provided patient education, and recommended follow-up with primary care provider when appropriate. If patient noted with a risk of falling, they received education on strength, gait, and balance training to prevent future risk of falling. Assessment and Plan Assessment and Plan (1) Bilateral shoulder pain: (2) Primary osteoarthritis, left shoulder: (3) Lumbar stenosis with neurogenic claudication: (4) Lumbar spondylosis: Plan bilateral shoulder xray patient would like a left shoulder injection for OA and chronic pain defer additional injections continue HEP as tolerated f/u after injection
--- OUTSIDE RECORDS SUMMARY | 2023-07-04 12:51 | XMS_ITS | CCD ---
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 Shift Name Role Phone Tre BETANCOURT, Timi Kenney Attending Unavailable Tre BETANCOURT, Timi Kenney Attending Unavailable Tre BETANCOURT, Timi Kenney Attending Unavailable Tre BETANCOURT, Timi Kenney Attending Unavailable SB DEUTSCH Attending Unavailable SANGEETHA BARRAGAN Attending Unavailable BEENA FRANCO Referring Unavailable RODRIGO JUAREZ Primary Care Unavailable BEENA FRANCO Referring Unavailable RODRIGO JUAREZ Primary Care Unavailable Rodrigo Juarez MD Primary Care Provider Medications Current Medications Medication Drug Class(es) Dates Sig (Normalized) Sig (Original) 8 hr acetaminophen 650 mg extended release oral tablet (1 source) take 1 tablet by mouth every eight hours as needed for pain acetaminophen (TYLENOL ARTHRITIS) 650 mg 8 hr tablet Take 1 tablet (650 mg total) by mouth every 8 (eight) hours as needed for pain. 0 Active acetaminophen 325 mg / HYDROcodone bitartrate 5 mg oral tablet (1 source) Opioid Agonist Start: 01-18-2023 take 1 tablet by mouth every eight hours as needed for pain HYDROcodone-acetamin ophen (NORCO) 5-325 mg per tablet Take 1 tablet by mouth every 8 (eight) hours as needed for pain. 0 01/18/2023 Active apixaban 5 mg oral tablet (1 source) Factor Xa Inhibitor Start: 07-31-2022 take 1 tablet by mouth in the morning, then take 1 tablet by mouth at bedtime apixaban (ELIQUIS) 5 mg tablet Take 1 tablet (5 mg total) by mouth in the morning and 1 tablet (5 mg total) before bedtime. 60 tablet 9 07/31/2022 Active ASCORBATE CALCIUM (VITAMIN C ORAL) (1 source) ASCORBATE CALCIU M (VITAMIN C ORAL) Take by mouth daily. 0 Active cholecalciferol 0.025 mg oral tablet (1 source) Vitamin D take 5 tablets by mouth in the morning cholecalciferol (VITAMIN D3) 1,000 units tablet Take 5 tablets (5,000 Units total) by mouth in the morning. 0 Active COQ10, LIPOSOMAL UBIQUINOL, ORAL (1 source) COQ10, LIPOSOMAL UBIQUINOL, ORAL Take by mouth. 0 Active docusate sodium 50 mg oral capsule (1 source) docusate sodium (COLACE) 50 mg capsule Take by mouth daily. 0 Active furosemide 20 mg oral tablet (1 source) Loop Diuretic Start: 05-10-2022 furosemide (LASIX) 20 mg tablet Indications: Bilateral leg edema Take 1 tablet (20 mg total) by mouth 3 (three) times a week. Take lasix every other day 45 tablet 2 05/10/2022 Active magnesium oxide 400 mg oral tablet (1 source) take 1 tablet by mouth in the morning, then take 1 tablet by mouth at bedtime magnesium oxide (MAG-OX) 400 mg tablet Take 1 tablet (400 mg total) by mouth in the morning and 1 tablet (400 mg total) before bedtime. 0 Active metoprolol tartrate 50 mg oral tablet (1 source) beta-Adrenergic Hien Start: 02-20-2023 take 1 tablet by mouth in the morning, then take 1 tablet by mouth at bedtime metoprolol tartrate (LOPRESSOR) 50 mg tablet Take 1 tablet (50 mg total) by mouth in the morning and 1 tablet (50 mg total) before bedtime. 180 tablet 1 02/20/2023 Active mv-min/folic/vit K/lycop/coQ10 (DAILY MULTIVITAMIN ORAL) (1 source) mv-min/folic/vit K/lycop/coQ10 (DAILY MULTIVITAMIN ORAL) Take by mouth daily. 0 Active nitroglycerin 0.4 mg sublingual tablet (1 source) Nitrate Vasodilator nitroglycerin (NITROSTAT) 0.[address] 1 tablet (0.4 mg total) under the tongue every 5 (five) minutes as needed for chest pain. 0 Active 10 actuat olodaterol 0.0025 mg/actuat / tiotropium 0.0025 mg/actuat inhalation spray (1 source) Anticholinergic, beta2-Adrenergic Agonist Start: 02-15-2023 tiotropium-olodatero L (STIOLTO RESPIMAT) 2.5-2.5 mcg/actuation mist Indications: Bronchospasm Inhale 2 puffs in the morning. 4 g 10 02/15/2023 Active vitamin b12 2.5 mg sublingual tablet (1 source) Vitamin B12 Start: 05-15-2017 take 1 tablet under the tongue once daily cyanocobalamin, vitamin B-12, 2,500 mcg tablet, sublingual Indications: Vitamin B [address] 1 tablet under the tongue once daily. 90 tablet 1 05/15/2017 Active vitamin e 268 mg oral capsule (1 source) take 1 capsule by mouth in the morning vitamin E 400 units capsule Take 1 capsule (400 Units total) by mouth in the morning. 0 Active Problems Active Problems Problem Classification Problem Date Documented Date Episodic/Chronic Anxiety disorders (1 source) Anxiety; Translations: [Other specified anxiety disorders] Onset: 08-03-2021 08-03-2021 Chronic Cardiac dysrhythmias (1 source) Chronic atrial fibrillation; Translations: [Chronic atrial fibrillation, unspecified] Onset: 05-08-2016 09-28-2016 Chronic Disorders of lipid metabolism (1 source) Hyperlipidemia; Translations: [Hyperlipidemia, unspecified] Onset: 09-28-2016 09-28-2016 Chronic Diverticulosis and diverticulitis (1 source) Diverticulitis of colon; Translations: [Diverticulitis of large intestine without perforation or abscess without bleeding] Onset: 09-28-2016 09-28-2016 Chronic Esophageal disorders (1 source) Gastro-esophageal reflux disease with esophagitis; Translations: [Gastroesophageal reflux disease with esophagitis] Onset: 05-14-2018 05-14-2018 Chronic Essential hypertension (1 source) Hypertensive disorder; Translations: [Essential (primary) hypertension] Onset: 05-19-2019 05-19-2019 Chronic Osteoarthritis (2 sources) Osteoarthritis of multiple joints ; Translations: [Polyosteoarthritis, unspecified] Onset: 09-28-2016 09-28-2016 Chronic Other lower respiratory disease (1 source) Interstitial lung disease; Translations: [Interstitial pulmonary disease, unspecified] Onset: 02-15-2023 02-15-2023 Chronic Other male genital disorders (1 source) Male erectile dysfunction, unspecified; Translations: [Impotence of organic origin] Onset: 09-28-2016 09-28-2016 Chronic Other nutritional; endocrine; and metabolic disorders (1 source) Body mass index 30+ - obesity; Translations: [Obesity, unspecified] Onset: 09-10-2020 09-10-2020 Chronic Parkinson`s disease (1 source) Parkinson`s disease; Translations: [Parkinson's disease without dyskinesia, without mention of fluctuations] Onset: 04-06-2023 Spondylosis; intervertebral disc disorders; other back problems (1 source) Lumbosacral spondylosis without myelopathy; Translations: [Spondylosis without myelopathy or radiculopathy, lumbosacral region] Onset: 08-23-2021 09-27-2021 Chronic Past or Other Problems Problem Classification Problem Date Documented Da te Episodic/Chronic Administrative/social admission (1 source) Occupational exposure to unspecified risk factor; Translations: [Adverse effects of work environment] Onset: 3 02-15-2023 Episodic Diabetes mellitus without complication (1 source) Increased glucose level; Translations: [Other abnormal glucose] Onset: 7 09-28-2016 Episodic Gastrointestinal hemorrhage (1 source) Gastrointestinal hemorrhage; Translations: [Hemorrhage of anus and rectum] Onset: 1 12-23-2020 Episodic Genitourinary symptoms and ill-defined conditions (1 source) Dysuria; Translations: [Dysuria] Onset: 8 08-07-2017 Episodic Headache; including migraine (1 source) Cough headache syndrome; Translations: [Primary cough headache] Onset: 7 Resolved: 9 02-12-2019 Episodic Mood disorders (1 source) Mood disorders Onset: 2 07-20-2021 Nonspecific chest pain (1 source) Atypical chest pain; Translations: [Other chest pain] Onset: 9 Resolved: 1 01-19-2021 Episodic Nutritional deficiencies (1 source) Cobalamin deficiency; Translations: [Deficiency of other specified B group vitamins] Onset: 8 05-15-2017 Episodic Open wounds of extremities (2 sources) Dog bite of lower leg; Translations: [Open bite, left lower leg, sequela] Onset: 9 Resolved: 9 03-26-2019 Episodic Other aftercare (1 source) Post-discharge follow-up; Translations: [Encounter for follow-up examination after completed treatment for conditions other than malignant neoplasm] Onset: 9 Resolved: 9 03-26-2019 Episodic Other connective tissue disease (1 source) Unspecified rotator cuff tear or rupture of unspecified shoulder, not specified as traumatic; Translations: [Rotator cuff (capsule) sprain] Onset: 8 11-12-2017 Episodic Other connective tissue disease (1 source) Other symptoms and signs involving the musculoskeletal system; Translations: [Other musculoskeletal symptoms referable to limbs] Onset: 2 05-16-2021 Episodic Other connective tissue disease (1 source) Pain of right forearm; Translations: [Pain in right forearm] Onset: 8 Resolved: 9 03-26-2019 Episodic Other connective tissue disease (1 source) Pain of left calf; Translations: [Pain in left lower leg] Onset: 0 Resolved: 1 05-26-2020 Episodic Other injuries and conditions due to external causes (1 source) Injury of left leg; Translations: [Unspecified injury of left lower leg, initial encounter] Onset: 9 02-05-2019 Episodic Other lower respiratory disease (1 source) Pneumonitis; Translations: [Other disorders of lung] Onset: 9 Resolved: 1 05-26-2020 Episodic Other non-traumatic joint disorders (1 source) Pain in right shoulder; Translations: [Pain in joint, shoulder region] Onset: 8 08-07-2017 Episodic Other non-traumatic joint disorders (1 source) Hip pain; Translations: [Pain in left hip] Onset: 2 05-16-2021 Episodic Other upper respiratory disease (1 source) Bronchospasm; Translations: [Acute bronchospasm] Onset: 3 02-15-2023 Episodic Other upper respiratory infections (2 sources) Acute maxillary sinusitis; Translations: [Acute maxillary sinusitis, unspecified] Onset: 7 Resolved: 1 03-26-2019 Episodic Residual codes; unclassified (1 source) Bilateral lower limb edema; Translations: [Localized edema] Onset: 9 08-25-2019 Episodic Residual codes; unclassified (1 source) H/O: anticoagulant therapy; Translations: [Personal history of other drug therapy] Onset: 7 Resolved: 8 05-21-2017 Episodic Residual codes; unclassified (1 source) Edema of left lower limb; Translations: [Localized edema] Onset: 0 Resolved: 1 05-26-2020 Episodic Spondylosis; intervertebral disc disorders; other back problems (2 sources) Chronic low back pain; Translations: [Lumbago with sciatica, left side] Onset: 8 Resolved: 1 05-16-2021 Episodic Superficial injury; contusion (1 source) Foreign body - finger; Translations: [Superficial foreign body of right little finger, initial encounter] Onset: 2 07-20-2021 Episodic Urinary tract infections (1 source) Acute cystitis; Translations: [Acute cystitis without hematuria] Onset: 8 08-07-2017 Episodic Varicose veins of lower extremity (1 source) Varicose veins of lower extremity; Translations: [Asymptomatic varicose veins of unspecified lower extremity] Onset: 7 09-28-2016 Episodic Encounters Encounter Date Encounter Type Care Provider Facility Start: 07-03-2023 Telephone encounter Tala Justin RN [facility] Comment on above: Pt assist Camilla Start: 05-10-2023 End: 06-08-2023 ambulatory [facility] Start: 05-09-2023 End: 05-09-2023 ambulatory SB DEUTSCH Not Available Start: 04-06-2023 End: 05-10-2023 ambulatory [facility] Start: 03-26-2023 End: 03-27-2023 ambulatory Timi Toledo MD Facility:[facility] Start: 03-12-2023 End: 03-12-2023 ambulatory SANGEETHA BARRAGAN Not Available Start: 03-05-2023 End: 03-06-2023 ambulatory [facility] Start: 01-01-2023 End: 01-02-2023 ambulatory Timi Toledo MD Facility:[facility]ue Start: 12-04-2022 End: 12-05-2022 ambulatory Timi Toledo MD Facility:[facility] Start: 05-20-2018 Patient encounter procedure Tala Justin RN [facility] Procedures Date Procedure Procedure Detail Performing Clinician Start: 07-20-2021 Adult depression scr eening assessment Tala Justin RN Plan of Treatment Date Care Activity Detail Author Start: 08-30-2032 DTaP,Tdap and Td Vaccines (3 - Td or Tdap) DTaP,Tdap and Td Vaccines (3 - Td or Tdap) [facility] Start: 02-16-2024 Adult BMI Screening Adult BMI Screening [facility] Start: 02-16-2024 Tobacco Screening Tobacco Screening [facility] Start: 08-17-2023 End: 08-17-2023 Patient encounter procedure 08/17/2023 9:00 AM EDT Office Visit [facility] [address] [place] [address] José Miguel Giraldo MD [address] [place] [address] [facility] Start: 08-16-2023 End: 08-16-2023 Patient encounter procedure 08/16/2023 2:30 PM EDT Office Visit [facility] [address] [place] [address] Jacqui Ortiz DO [address] [address] [facility] Start: 12-08-2022 COVID-19 Vaccine () COVID-19 Vaccine () [facility] Start: 07-20-2022 Depression Screening Depression Screening [facility] Start: 06-13-2022 Fall Risk Screening Fall Risk Screening [facility] Start: 1987 Administration of varicella zoster vaccine Zoster (Shingles) Vaccine (1 of 2) [facility] Start: 1955 Adult BMI Follow Up Plan Adult BMI Follow Up Plan [facility] Immunizations Immunization Date Immunization Notes Care Provider Fa cility 08-30-2022 tetanus toxoid, redu sophy diphtheria toxoid, and acellular pertussis vaccine, adsorbed Tala Margoth RN [facility] 01-19-2021 Influenza, High-dose , Quadrivalent Tala Justin RN [facility] 02-02-2020 Influenza, High-dose , Quadrivalent Tala Justin RN [facility] 01-21-2019 influenza, injectabl e, quadrivalent, preservative free Tala Justin RN [facility] 01-21-2019 tetanus toxoid, redu sophy diphtheria toxoid, and acellular pertussis vaccine, adsorbed Tala Justin RN [facility] 04-25-2018 pneumococcal polysaccharide vaccine, 23 valent Tala Justin RN [facility] 01-02-2018 influenza, high dose seasonal, preservative-free Tala Justin RN [facility] 01-12-2017 influenza, injectabl e, quadrivalent, preservative free Tala Justin RN [facility] 01-13-2016 influenza virus vacc ine, unspecified formulation Tala Justin RN [facility] 03-23-2015 pneumococcal conjuga te vaccine, 13 valent Tala Justin RN [facility] Payers Date Payer Category Payer Private Health Insurance 2014 Medicare [id number] 2014 Medicare A[employer] MEDICARE A ETNA MEDICARE PLAN (PPO) [id number] 2014-Present [phone] [address] [place] [address] [id number] 1937 Unknown [id number] 1937 Unknown [id number] 1937 Unknown [id number] 1937 Unknown [id number] 1937 Unknown [id number] 1937 Unknown [id number] 1937 Unknown [id number] 1937 Unknown [id number] Social History Date Type Detail Facility [facility]: [facility] Start: 08-07-2022 Tobacco use and exposure Smokeless tobacco non-user [facility] Start: 02-15-2023 Alcohol intake Lifetime non-d abhi (finding) [facility] Start: 05-20-2020 End: 02-15-2023 History of Social function [facility] Start: 05-20-2020 End: 02-15-[address] [facility] Adolescent depressio n screening assessment 0 [facility] Start: 1935 Sex Assigned At Not on file P [facility] Note 07-03-2023 Telephone Encounter - Tala Justin RN - 07/03/2023 9:53 AM EDT Note Date & Type Note Facility 07-03-2023 Miscellaneous Notes Formattin g of this note might be different from the original. New enrollment forms w/ financial information faxed to [facility] documented in this encounter [employer] Telephone encounter Note 07-03-2023 Telephone Encounter - Tala Justin RN - 07/03/2023 9:53 AM EDT Note Date & Type Note Facility 07-03-2023 Telephone encount er Note New enrollment forms w/ financial information faxed to [facility] [facility] Instructions Note Date & Type Note Facility Instructions Not on filedocumented in this en counter [facility] Summary Purpose Family History No Family History Records FoundNo Family History Records FoundNo Family History Records Found Advance Directives No Advanced Directives Records FoundNo Advanced Directives Records FoundNo Advanced Directives Records Found Additional Source Comments (unrecognized sect ion and content) No Status Records FoundNo Status Records FoundNo Status Records Found INFORMATION SOURCE (unrecogn ized section and content) DATE CREATED AUTHOR 03/30/2023 [facility] DATE CREATED AUTHOR AUTHOR'S ORGANIZ ATION 05/10/2023 [facility] EPIC DATE CREATED AUTHOR AUTHOR'S ORGANIZ ATION 06/10/2023 [facility] Reason for Visit (unrecogniz ed section and content) Reason Onset Date Comments Pt assist Eliquis 07/03/2023 Care Teams (unrecognized sec tion and content) Welder 2Nd Shift Relationship Specialty Start Date End Date Rodrigo Juraez MD [address] [place] [address] PCP - General Family Medicine 10/12/21 FOR RECORDS PERTAINING TO PATIENTS WHO ARE [...] BE BASED ON THE PRIMARY CLINICAL RECORDS. [facility]. provides no warranty or guarantee of the accuracy or completeness of information in this document.
== END 2023-07-04 12:43 | disposition home or self-care (01) ==
PROVIDERS: Visit Provider Nurse Practitioner
DX: M25.512 Pain in left shoulder (principal); M25.511 Pain in right shoulder; M19.012 Primary osteoarthritis, left shoulder; M48.062 Spinal stenosis, lumbar region with neurogenic claudication; M47.816 Spondylosis without myelopathy or radiculopathy, lumbar region
CPT/HCPCS: G0463

== ENCOUNTER 2023-07-23 13:52 | Outpatient (OUT) | payer MEDICARE, SELFPAY ==
--- NOTE | 2023-07-23 16:07 | P.CN_ITS ---
Consult Note: HPI Data of Consult Patient: known to practice within the last 3 years Consult date: 07/23/23 Requesting Physician: Timi Toledo MD Primary Care Provider: Non-Staff Physician, Consult Narrative Reason for consult: left shoulder pain, low back and leg pain Narrative: 88yom who presents for assessment. worsening left shoulder pain, low back and leg pain. would like to have left shoulder injection. uses tylenol primarily. denies adverse med side effects. cc:: CC: Timi Toledo MD Review of Systems ROS Status of ROS 10 or more systems reviewed and unremark able except as noted in history and below PFSH PFSH Social History Smoking status: Never smoker Meds Home Medications and Allergies Home Medications ?Medication ?Instructions ?Recorded ?Confirmed ?Type acetaminophen 650 mg 650 mg PO Q8H PRN pain 12/04/22 03/26/23 History tablet,extended release (8 Hour Pain Reliever) apixaban 5 mg tablet (Eliquis) 5 mg PO BID 12/04/22 03/26/23 History ascorbic acid (vitamin C) 500 mg 500 mg PO DAILY 12/04/22 03/26/23 History tablet (C-500) cholecalciferol (vitamin D3) 25 25 mcg PO DAILY 12/04/22 03/26/23 History mcg (1,000 unit) tablet (Vitamin D3) furosemide 20 mg tablet (Lasix) 20 mg PO DAILY 12/04/22 03/26/23 History magnesium 200 mg tablet 400 mg PO DAILY 12/04/22 03/26/23 History metoprolol succinate 25 mg 25 mg PO BID 12/04/22 03/26/23 History tablet,extended release 24 hr (Toprol XL) multivitamin 1 tab PO DAILY 12/04/22 03/26/23 History vitamin E 268 mg (400 unit) capsule 268 mg PO DAILY 12/04/22 03/26/23 History carbidopa 25 mg-levodopa 100 mg 1 tab PO TID 07/04/23 07/04/23 History tablet (Sinemet) Allergies Allergy/AdvReac Type Severity Reaction Status Date / Time No Known Drug Allergies Allergy Verified 03/26/23 12:52 Exam Narrative Exam Narrative: Psych-alert and oriented x 3. Attentive and appropriate, constitutionally normal, displays normal mood and affect per situation.? There are no obvious deficits in memory, reasoning, or intellect.? Skin-no obvious rashes, bruising, erythema noted to the patient's area of pain. Extremities- extremities are warm with minimal edema and palpable pulses. Shoulder-tenderness to palpation in left shoulder. Pain with abduction, external rotation. Coordination remains intact.? Gait remains non-antalgic. 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 worsening left shoulder pain, would like to proceed with left shoulder injection. in terms of low back pain, patient and family inquired about possibility of interventions such as spinal cord stim. i discussed with them and provided them with information. they will discuss this and make a decision. meds reviewed, no changes. follow up in 4-6 weeks. Procedure: left shoulder injection medications: Bupivacaine 0.25% 4cc, kenalog 40mg I explained the details of the procedure to the patient including the risks, benefits, and alternatives.? We had an informed discussion.? The patient verbalized understanding and signed the consent form.? All questions were answered appropriately.? A time-out was performed.? After obtaining a comfortable seated position, the skin overlying the left shoulder was prepped with alcohol 3 times.? The sulcus between the head of the humerus and the acromion was identified.? The needle was inserted in a sterile manner 2 cm inferior and medial to the posterolateral corner of the acromion and was directed anteriorly toward the coracoid process. The contents of the syringe were gently injected without any resistance into the joint space after negative aspiration for blood or other bodily fluids.? The needle was removed and pressure was applied at the injection site to decrease the incidence of ecchymosis and hematoma formation.? A sterile bandage was applied.
== END 2023-07-23 13:53 | disposition home or self-care (01) ==
LOC: PM 13:53
PROVIDERS: Visit Provider Anesthesiology
DX: M19.012 Primary osteoarthritis, left shoulder (principal); M48.062 Spinal stenosis, lumbar region with neurogenic claudication; M47.816 Spondylosis without myelopathy or radiculopathy, lumbar region
CPT/HCPCS: 20610

== ENCOUNTER 2023-09-20 13:42 | Outpatient (OUT) | payer MEDICARE, SELFPAY ==
--- NOTE | 2023-09-20 14:38 | P.CN_ITS ---
Consult Note: HPI Data of Consult Patient: known to practice within the last 3 years Consult date: 07/23/23 Requesting Physician: Sana Smith NP Primary Care Provider: Non-Staff Physician, MD Consult Narrative Reason for consult: left shoulder pain, low back pain Narrative: Vance Cosme a pleasant 77 year old male presents for evaluation of chronic low back pain and bilateral leg weakness, as well as bilateral shoulder pain. Pain 0/10 today. In the past, no improvement from bilateral L3-4 and bilateral L4-5 TFESIs. Stopped tramadol as it caused constipation and did not help enough. Tylenol with mild benefit. No NSAIDs with eliquis. Could not tolerate cymablta as this caused shaking and weakness. Completed greater than 6 weeks of PT without benefit. Patient reporting >50% ongoing improvement in pain and functional ability since left shoulder injection with Dr Toledo. Chronic low back pain increasing to 7/10 with standing walking activity, improved with sitting. cc:: CC: Sana Smith NP Review of Systems ROS Status of ROS 10 or more systems reviewed and unremark able except as noted in history and below Musculoskeletal Reports: back pain PFSH PFSH Social History Smoking status: Never smoker Meds Home Medications and Allergies Home Medications ?Medication ?Instructions ?Recorded ?Confirmed ?Type acetaminophen 650 mg 650 mg PO Q8H PRN pain 12/04/22 03/26/23 History tablet,extended release (8 Hour Pain Reliever) apixaban 5 mg tablet (Eliquis) 5 mg PO BID 12/04/22 03/26/23 History ascorbic acid (vitamin C) 500 mg 500 mg PO DAILY 12/04/22 03/26/23 History tablet (C-500) cholecalciferol (vitamin D3) 25 25 mcg PO DAILY 12/04/22 03/26/23 History mcg (1,000 unit) tablet (Vitamin D3) furosemide 20 mg tablet (Lasix) 20 mg PO DAILY 12/04/22 03/26/23 History magnesium 200 mg tablet 400 mg PO DAILY 12/04/22 03/26/23 History metoprolol succinate 25 mg 25 mg PO BID 12/04/22 03/26/23 History tablet,extended release 24 hr (Toprol XL) multivitamin 1 tab PO DAILY 12/04/22 03/26/23 History vitamin E 268 mg (400 unit) capsule 268 mg PO DAILY 12/04/22 03/26/23 History carbidopa 25 mg-levodopa 100 mg 1 tab PO TID 07/04/23 07/04/23 History tablet (Sinemet) Allergies Allergy/AdvReac Type Severity Reaction Status Date / Time No Known Drug Allergies Allergy Verified 03/26/23 12:52 Exam Constitutional Documenting provider has reviewed patient's vital signs: yes Common normals: no apparent distress, oriented x3, healthy appearing, alert and well nourished General appearance: cooperative HENMT Common normals: normocephalic, hearing grossly normal bilaterally and moist oral mucous membranes Head and scalp: normocephalic Eye Common normals: PERRL Pupil: PERRL Neck & C-Spine Common normals: full ROM General: normal visual inspection Chest Common normals: inspection of chest normal Respiratory Common normals: normal respiratory effort, no retractions and no use of accessory muscles Back & Pelvis Lumbar spine/lower back: ROM limited, pain with ROM and straight leg raise negative bilaterally Other: weakness upon standing and with walking symptoms improved with sitting positive facet loading bilaterally Extremity Common normals: normal to inspection and full ROM Right upper extremity: shoulder joint Left upper extremity: shoulder joint Other: bilateral shoulder pain, positive scratch test, positive empty can, tenderness over bilateral AC joints. ROM intact Neuro Common normals: oriented x3, CN's II-XII intact bilaterally, moves all extremities, no focal motor deficits, no sensory deficits noted and deep tendon reflexes 2+ bilaterally Sensorium/orientation: alert Motor exam: strength 5/5 throughout and no movement abnormalities noted Psych Common normals: mental status grossly normal, thought process normal, cooperative, affect normal, speech normal and activity/motor behavior normal Speech: normal speech Thought process: normal thought process Results Additional Findings Additional findings: If on a controlled substance or opioids, I have checked an [facility] report on this patient and there are no aberrancies noted in the prescribing history.??If on a controlled substance or opioid a drug screen was completed and reviewed within the last year, and if there has not been a drug screen completed we ordered one today to monitor higher risk, state monitored pain medication use. As part of providing excellent, safe, comprehensive care, the following was completed at our patient's visit: 1. A medication reconciliation and review to ensure accurate knowledge of current/active medications, including asking our patients to inform us about any [id number] medications or herbal remedies/nutritional supplements/alternative remedies. 2. A review to specifically ensure our patients have had annual screening for screening for depression, screening for tobacco use, and screening for unhealthy alcohol use. For concerning screenings had a discussion with the patient, provided patient education, and recommended follow-up with primary care provider when appropriate. If patient noted with a risk of falling, they received education on strength, gait, and balance training to prevent future risk of falling. 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
== END 2023-09-20 13:43 | disposition home or self-care (01) ==
LOC: PM 13:42
PROVIDERS: Visit Provider Nurse Practitioner
DX: M47.816 Spondylosis without myelopathy or radiculopathy, lumbar region (principal); M19.012 Primary osteoarthritis, left shoulder; M48.062 Spinal stenosis, lumbar region with neurogenic claudication
CPT/HCPCS: G0463

== ENCOUNTER 2023-10-08 10:44 | Day surgery (SDC) | payer MEDICARE, SELFPAY ==
--- OUTSIDE RECORDS SUMMARY | 2023-10-08 11:04 | XMS_ITS | CCD ---
Author Organization [facility] Care Team Providers Care Optic Fibre Drawer Name Role Phone Ann BETANCOURT, Rozina Lau Primary Care Provider Tre BETANCOURT, Timi Kenney Attending Unavailable Tre BETANCOURT, Timi Kenney Attending Unavailable Tre BETANCOURT, Timi Kenney Attending Unavailable Tre BETANCOURT, Timi Kenney Attending Unavailable Tre BETANCOURT, Timi Kenney Attending Unavailable ASHKAN RUIZ Referring Unavailable JUAREZ, ROZINA L Primary Care Unavailable ASHKAN RUIZ Referring Unavailable JUAREZ, ROZINA L Primary Care Unavailable BEENA FRANCO Referring Unavailable JUAREZ, ROZINA L Primary Care Unavailable MACARIO DUFFY Referring Unavailable JUAREZ, ROZINA L Primary Care Unavailable JOSÉ MIGUEL GIRALDO Attending Unavailable JUAREZ, ROZINA L Referring Unavailable JUAREZ, ROZINA L Primary Care Unavailable JUAREZ, ROZINA L Referring Unavailable JUAREZ, ROZINA L Primary Care Unavailable SALVADOR, BEENA HERNANDEZ Referring Unavailable JUAREZ, ROZINA L Primary Care Unavailable SB DEUTSCH Attending Unavailable SB DEUTSCH Attending Unavailable SANGEETHA BARRAGAN Attending Unavailable BEENA FRANCO Attending Unavailable BEENA FRANCO Attending Unavailable Medications Current Medications Medication Drug Class(es) Dates Sig (Normalized) Sig (Original) 8 hr acetaminophen 650 mg extended release oral tablet (2 sources) take 1 tablet by mouth every eight hours as needed for pain acetaminophen (TYLENOL ARTHRITIS) 650 mg 8 hr tablet Take 1 tablet (650 mg total) by mouth every 8 (eight) hours as needed for pain. 0 Active acetaminophen 325 mg / HYDROcodone bitartrate 5 mg oral tablet (2 sources) Opioid Agonist Start: 01-18-2023 take 1 tablet by mouth every eight hours as needed for pain HYDROcodone-acetamin ophen (NORCO) 5-325 mg per tablet Take 1 tablet by mouth every 8 (eight) hours as needed for pain. 0 01/18/2023 Active apixaban 5 mg oral tablet (3 sources) Factor Xa Inhibitor Start: 07-31-2022 End: 07-06-2023 take 1 tablet by mouth in the morning, then take 1 tablet by mouth at bedtime apixaban (ELIQUIS) 5 mg tablet Take 1 tablet (5 mg total) by mouth in the morning and 1 tablet (5 mg total) before bedtime. 60 tablet 2 07/06/2023 Active ASCORBATE CALCIUM (VITAMIN C ORAL) (2 sources) ASCORBATE CALCIU M (VITAMIN C ORAL) Take by mouth daily. 0 Active cholecalciferol 0.025 mg oral tablet (2 sources) Vitamin D take 5 tablets by mouth in the morning cholecalciferol (VITAMIN D3) 1,000 units tablet Take 5 tablets (5,000 Units total) by mouth in the morning. 0 Active COQ10, LIPOSOMAL UBIQUINOL, ORAL (2 sources) COQ10, LIPOSOMAL UBIQUINOL, ORAL Take by mouth. 0 Active docusate sodium 50 mg oral capsule (2 sources) docusate sodium (COLACE) 50 mg capsule Take by mouth daily. 0 Active furosemide 20 mg oral tablet (2 sources) Loop Diuretic Start: 07-05-2023 furosemide (LASIX) 20 mg tablet Indications: Bilateral leg edema TAKE 1 TABLET BY MOUTH EVERY OTHER DAY (3 TIMES PER WEEK) 45 tablet 0 07/05/2023 Active Start: 05-10-2022 furosemide (LA SIX) 20 mg tablet Indications: Bilateral leg edema Take 1 tablet (20 mg total) by mouth 3 (three) times a week. Take lasix every other day 45 tablet 2 05/10/2022 Active magnesium oxide 400 mg oral tablet (2 sources) take 1 tablet by mouth in the morning, then take 1 tablet by mouth at bedtime magnesium oxide (MAG-OX) 400 mg tablet Take 1 tablet (400 mg total) by mouth in the morning and 1 tablet (400 mg total) before bedtime. 0 Active metoprolol tartrate 50 mg oral tablet (2 sources) beta-Adrenergic Hien Start: 02-21-20 take 1 tablet by mouth in the morning, then take 1 tablet by mouth at bedtime metoprolol tartrate (LOPRESSOR) 50 mg tablet Take 1 tablet (50 mg total) by mouth in the morning and 1 tablet (50 mg total) before bedtime. 180 tablet 1 02/20/2023 Active mv-min/folic/vit K/lycop/coQ10 (DAILY MULTIVITAMIN ORAL) (2 sources) mv-min/folic/vit K/lycop/coQ10 (DAILY MULTIVITAMIN ORAL) Take by mouth daily. 0 Active nitroglycerin 0.4 mg sublingual tablet (2 sources) Nitrate Vasodilator nitroglyceri n (NITROSTAT) 0.[address] 1 tablet (0.4 mg total) under the tongue every 5 (five) minutes as needed for chest pain. 0 Active 10 actuat olodaterol 0.0025 mg/actuat / tiotropium 0.0025 mg/actuat inhalation spray (2 sources) Anticholinergic, beta2-Adrenergic Agonist Start: 02-16-20 23 tiotropium-olodateroL (STIOLTO RESPIMAT) 2.5-2.5 mcg/actuation mist Indications: Bronchospasm Inhale 2 puffs in the morning. 4 g 10 02/15/2023 Active vitamin b12 2.5 mg sublingual tablet (2 sources) Vitamin B12 Start: 05-15-19 18 take 1 tablet under the tongue once daily cyanocobalamin, vitamin B-12, 2,500 mcg tablet, sublingual Indications: Vitamin B [address] 1 tablet under the tongue once daily. 90 tablet 1 05/15/2017 Active vitamin e 268 mg oral capsule (2 sources) take 1 capsule by mouth in the morning vitamin E 400 units capsule Take 1 capsule (400 Units total) by mouth in the morning. 0 Active Problems Active Problems Problem Classification Problem Date Documented Date Episodic/Chronic Anxiety disorders (2 sources) Anxiety; Translations: [Other specified anxiety disorders] Onset: 08-03-2021 08-03-2021 Chronic Cardiac dysrhythmias (2 sources) Chronic atrial fibrillation; Translations: [Chronic atrial fibrillation, unspecified] Onset: 05-08-2016 09-28-2016 Chronic Disorders of lipid metabolism (2 sources) Hyperlipidemia; Translations: [Hyperlipidemia, unspecified] Onset: 09-28-2016 09-28-2016 Chronic Diverticulosis and diverticulitis (2 sources) Diverticulitis of colon; Translations: [Diverticulitis of large intestine without perforation or abscess without bleeding] Onset: 09-28-2016 09-28-2016 Chronic Esophageal disorders (2 sources) Gastro-esophageal reflux disease with esophagitis; Translations: [Gastroesophageal reflux disease with esophagitis] Onset: 05-14-2018 05-14-2018 Chronic Essential hypertension (3 sources) Hypertensive disorder; Translations: [Essential (primary) hypertension] Onset: 05-19-2019 05-19-2019 Chronic Osteoarthritis (4 sources) Osteoarthritis of multiple joints ; Translations: [Polyosteoarthritis, unspecified] Onset: 09-28-2016 09-28-2016 Chronic Other eye disorders (1 source) Unspecified entropion of unspecified eye, unspecified eyelid; Translations: [Unspecified entropion of unspecified eye, unspecified eyelid] Onset: 09-11-2023 Episodic Other lower respiratory disease (2 sources) Interstitial lung disease; Translations: [Interstitial pulmonary disease, unspecified] Onset: 02-15-2023 02-15-2023 Chronic Other male genital disorders (2 sources) Male erectile dysfunction, unspecified; Translations: [Impotence of organic origin] Onset: 09-28-2016 09-28-2016 Chronic Other non-traumatic joint disorders (3 sources) Pain in right shoulder; Translations: [Pain in joint, shoulder region] Onset: 08-07-2017 08-07-2017 Episodic Other non-traumatic joint disorders (1 source) Pain in left shoulder; Translations: [Pain in left shoulder] Onset: 07-06-2023 Episodic Other nutritional; endocrine; and metabolic disorders (2 sources) Body mass index 30+ - obesity; Translations: [Obesity, unspecified] Onset: 09-10-2020 09-10-2020 Chronic Parkinson`s disease (1 source) Parkinson`s disease; Translations: [Parkinson's disease without dyskinesia, without mention of fluctuations] Onset: 04-06-2023 Spondylosis; intervertebral disc disorders; other back problems (2 sources) Lumbosacral spondylosis without myelopathy; Translations: [Spondylosis without myelopathy or radiculopathy, lumbosacral region] Onset: 08-23-2021 09-27-2021 Chronic Unclassified (1 source) Chronic atrial fibrillation, unspecified; Translations: [Chronic atrial fibrillation, unspecified] Onset: 09-28-2016 Unclassified (1 source) Annual Exam Onset: 08-17-2023 Past or Other Problems Problem Classification Problem Date Documented Da te Episodic/Chronic Administrative/social admission (2 sources) Occupational exposure to unspecified risk factor; Translations: [Adverse effects of work environment] Onset: 3 02-15-2023 Episodic Diabetes mellitus without complication (2 sources) Increased glucose level; Translations: [Other abnormal glucose] Onset: 7 09-28-2016 Episodic Gastrointestinal hemorrhage (2 sources) Gastrointestinal hemorrhage; Translations: [Hemorrhage of anus and rectum] Onset: 1 12-23-2020 Episodic Genitourinary symptoms and ill-defined conditions (2 sources) Dysuria; Translations: [Dysuria] Onset: 8 08-07-2017 Episodic Headache; including migraine (2 sources) Cough headache syndrome; Translations: [Primary cough headache] Onset: 7 Resolved: 9 02-12-2019 Episodic Mood disorders (2 sources) Mood disorders Onset: 2 07-20-2021 Nonspecific chest pain (2 sources) Atypical chest pain; Translations: [Other chest pain] Onset: 9 Resolved: 1 01-19-2021 Episodic Nutritional deficiencies (2 sources) Cobalamin deficiency; Translations: [Deficiency of other specified B group vitamins] Onset: 8 05-15-2017 Episodic Open wounds of extremities (4 sources) Dog bite of lower leg; Translations: [Open bite, left lower leg, sequela] Onset: 9 Resolved: 9 03-26-2019 Episodic Other aftercare (2 sources) Post-discharge follow-up; Translations: [Encounter for follow-up examination after completed treatment for conditions other than malignant neoplasm] Onset: 9 Resolved: 9 03-26-2019 Episodic Other connective tissue disease (2 sources) Unspecified rotator cuff tear or rupture of unspecified shoulder, not specified as traumatic; Translations: [Rotator cuff (capsule) sprain] Onset: 8 11-12-2017 Episodic Other connective tissue disease (2 sources) Other symptoms and signs involving the musculoskeletal system; Translations: [Other musculoskeletal symptoms referable to limbs] Onset: 2 05-16-2021 Episodic Other connective tissue disease (2 sources) Pain of right forearm; Translations: [Pain in right forearm] Onset: 8 Resolved: 9 03-26-2019 Episodic Other connective tissue disease (2 sources) Pain of left calf; Translations: [Pain in left lower leg] Onset: 0 Resolved: 1 05-26-2020 Episodic Other injuries and conditions due to external causes (2 sources) Injury of left leg; Translations: [Unspecified injury of left lower leg, initial encounter] Onset: 9 02-05-2019 Episodic Other lower respiratory disease (2 sources) Pneumonitis; Translations: [Other disorders of lung] Onset: 9 Resolved: 1 05-26-2020 Episodic Other non-traumatic joint disorders (2 sources) Hip pain; Translations: [Pain in left hip] Onset: 2 05-16-2021 Episodic Other upper respiratory disease (2 sources) Bronchospasm; Translations: [Acute bronchospasm] Onset: 3 02-15-2023 Episodic Other upper respiratory infections (4 sources) Acute maxillary sinusitis; Translations: [Acute maxillary sinusitis, unspecified] Onset: 7 Resolved: 1 03-26-2019 Episodic Residual codes; unclassified (2 sources) Bilateral lower limb edema; Translations: [Localized edema] Onset: 9 08-25-2019 Episodic Residual codes; unclassified (2 sources) H/O: anticoagulant therapy; Translations: [Personal history of other drug therapy] Onset: 7 Resolved: 8 05-21-2017 Episodic Residual codes; unclassified (2 sources) Edema of left lower limb; Translations: [Localized edema] Onset: 0 Resolved: 1 05-26-2020 Episodic Residual codes; unclassified (1 source) Localized edema; Translations: [Localized edema] Onset: 0 Episodic Spondylosis; intervertebral disc disorders; other back problems (4 sources) Chronic low back pain; Translations: [Lumbago with sciatica, left side] Onset: 8 Resolved: 1 05-16-2021 Episodic Superficial injury; contusion (2 sources) Foreign body - finger; Translations: [Superficial foreign body of right little finger, initial encounter] Onset: 2 07-20-2021 Episodic Urinary tract infections (2 sources) Acute cystitis; Translations: [Acute cystitis without hematuria] Onset: 8 08-07-2017 Episodic Varicose veins of lower extremity (2 sources) Varicose veins of lower extremity; Translations: [Asymptomatic varicose veins of unspecified lower extremity] Onset: 7 09-28-2016 Episodic Results Test Name Value Interpretation Reference Range Facility CBC AND AUTO DIFFon 09-11-19 24 ABSOLUTE BASOPHIL 0.0 X10E9/L Normal 0.0-0.2 [facility] Comment on above: Performed By: #### C BCA #### [facility] ([id number]) [address] [place] [address] 64100 ABSOLUTE NEUTROPHIL 4.9 X10E9/L Normal 1.5-6.6 [facility] Comment on above: Performed By: #### C BCA #### [facility] ([id number]) [address] [place] [address] 54888 Basophils/100 WBC (Bld) 0.4 % Normal [facility] Comment on above: Performed By: #### C BCA #### [facility] ([id number]) [address] [place] [address] 72137 Eosinophils (Bld) [#/Vol] 0.1 10*3/uL Normal 0.0-0.4 [facility] Comment on above: Performed By: #### C BCA #### [facility] ([id number]) [address] [place] [address] 92985 Eosinophils/100 WBC (Bld) 1.4 % Normal [facility] Comment on above: Performed By: #### C BCA #### [facility] ([id number]) [address] [place] [address] 04452 Erythrocyte distribution width (RBC) [Ratio] 13.3 % Normal 11.5-15.0 [facility] Comment on above: Performed By: #### C BCA #### [facility] ([id number]) [address] [place] [address] 79867 Hematocrit (Bld) [Volume fraction] 41.1 % Normal 39-49 [facility] Comment on above: Performed By: #### C BCA #### [facility] ([id number]) [address] [place] [address] 98409 Hemoglobin (Bld) [Mass/Vol] 14.2 g/dL Normal 13.0-17.0 [facility] Comment on above: Performed By: #### C BCA #### [facility] ([id number]) [address] [place] [address] 44462 Lymphocytes (Bld) [#/Vol] 1.6 10*3/uL Normal 1.0-3.5 [facility] Comment on above: Performed By: #### C BCA #### [facility] ([id number]) [address] [place] [address] 89143 Lymphocytes/100 WBC (Bld) 20.6 % Normal [facility] Comment on above: Performed By: #### C BCA #### [facility] ([id number]) [address] [place] [address] 24786 MCH (RBC) [Entitic mass] 33.1 pg Normal 27-34 [facility] Comment on above: Performed By: #### C BCA #### [facility] ([id number]) [address] [place] [address] 76848 MCHC (RBC) [Mass/Vol] 34.6 g/dL Normal 32-36 [facility] Comment on above: Performed By: #### C BCA #### [facility] ([id number]) [address] [place] [address] 78057 MCV (RBC) [Entitic vol] 96 fL Normal 80-100 [facility] Comment on above: Performed By: #### C BCA #### [facility] ([id number]) [address] [place] [address] 24471 Monocytes (Bld) [#/Vol] 1.0 10*3/uL High 0-0.9 [facility] Comment on above: Performed By: #### C BCA #### [facility] ([id number]) [address] [place] [address] 81298 Monocytes/100 WBC (Bld) 13.4 % Normal [facility] Comment on above: Performed By: #### C BCA #### [facility] ([id number]) [address] [place] [address] 58169 Neutrophils/100 WBC (Bld) 64.2 % Normal [facility] Comment on above: Performed By: #### C BCA #### [facility] ([id number]) [address] [place] [address] 99198 Platelet mean volume (Bld) [Entitic vol] 7.8 fL Normal 7-12 [facility] Comment on above: Performed By: #### C BCA #### [facility] ([id number]) [address] [place] [address] 13735 Platelets (Bld) [#/Vol] 237 10*3/uL Normal 150-450 [facility] Comment on above: Performed By: #### C BCA #### [facility] ([id number]) [address] [place] [address] 79806 RBC COUNT 4.30 X10E12/L Normal 4.10-5.70 [facility] Comment on above: Performed By: #### C BCA #### [facility] ([id number]) [address] [place] [address] WBC (Bld) [#/Vol] 7.7 10*3/uL Normal 4.0-11.0 [facility] Comment on above: Performed By: #### C BCA #### [facility] ([id number]) [address] [place] [address] 71514 XR SHOULDER LT MIN 2 VWSon 0 07-07-2023 XR SHOULDER LT MIN 2 VWS XR SHOULDER LT MIN 2 VWS XR SHOULDER LT MIN 2 VWS CLINICAL HISTORY: Chronic shoulder pain. COMPARISON: None. FINDINGS: 3 views are obtained. Soft tissues: Suggestion of elevation of the left hemidiaphragm with crowding of the lower lung markings and vascular consultation at the aortic knob Osseous structures: No acute fracture. No destructive osseous lesion. Joints: No dislocation or malalignment. Joint space narrowing and mild spurring in the left AC joint suggesting mild degenerative arthritis. High riding left humeral head with narrowing of the left subacromial space suggesting chronic rotator cuff pathology IMPRESSION: * No acute fracture or malalignment. Finalized by Rhett Quintanilla MD on 07/07/2023 8:02 AM Normal [facility] XR SHOULDER RT MIN 2 VWSon 0 07-07-2023 XR SHOULDER RT MIN 2 VWS XR SHOULDER RT MIN 2 VWS HISTORY: An 88-year-old male with the history of the chronic bilateral shoulder pain. No history of injury. TECHNIQUE: Right shoulder: 3 views COMPARISON: Comparison is made with the right shoulder radiographs of 08/07/2017. FINDINGS: There is no evidence of fracture, dislocation or acute bony pathology. There are degenerative changes in the glenohumeral and acromioclavicular joints. No abnormal soft tissue calcifications are seen. Right upper rib cage is intact. 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 * No evidence of fracture or acute bony pathology. Finalized by Westley Walker MD on 07/07/2023 11:03 AM Normal [facility] COMPREHENSIVE METABOLIC PANE George 07-06-2023 Albumin [Mass/Vol] 4.0 g/dL Normal 3.2-5.3 [facility] Comment on above: Performed By: #### Jana COPELAND, #### [facility] ([id number]) [address], [address] [place] [address] ALP [Catalytic activity/Vol] 64 U/L Normal 39-130 [facility] Comment on above: Performed By: #### Jana COPELAND, 96901-6 #### [facility] ([id number]) [address], [address] [place] [address] ALT [Catalytic activity/Vol] 5 U/L Normal 0-40 [facility] Comment on above: Performed By: #### Jana COPELAND, #### [facility] ([id number]) [address], [address] [place] [address] Anion gap [Moles/Vol] 9 mmol/L Normal 5-15 [facility] Comment on above: Performed By: #### Jana COPELAND, #### [facility] ([id number]) [address], [address] [place] [address] AST [Catalytic activity/Vol] 22 U/L Normal 0-41 [facility] Comment on above: Performed By: #### Jana COPELAND, #### [facility] ([id number]) [address], [address] [place] [address] Bilirubin [Mass/Vol] 0.8 mg/dL Normal 0.3-1.2 [facility] Comment on above: Performed By: #### Jana COPELAND, #### [facility] ([id number]) [address], [address] [place] [address] Calcium [Mass/Vol] 9.2 mg/dL Normal 8.5-10.5 [facility] Comment on above: Performed By: #### Jana COPELAND, #### [facility] ([id number]) [address], [address] [place] [address] Chloride [Moles/Vol] 103 mmol/L Normal 98-109 [facility] Comment on above: Performed By: #### Jana COPELAND, #### [facility] ([id number]) [address], [address] [place] [address] CO2 [Moles/Vol] 27 mmol/L Normal 22-32 [facility] Comment on above: Performed By: #### Jana COPELAND, #### [facility] ([id number]) [address], [address] [place] [address] Creatinine [Mass/Vol] 0.86 mg/dL Normal 0.60-1.30 [facility] Comment on above: Result Comment: METH OD TRACEABLE TO IDMS STANDARD Performed By: #### Jana COPELAND, #### [facility] ([id number]) [address], [address] [place] [address] GFR/1.73 sq M.predicted among non-blacks MDRD (S/P/Bld) [Vol rate/Area] 84 mL/min/{1.73_m2} Normal >59 [facility] Comment on above: Result Comment: Reported eGFR is based on the CKD-EPI 2020 equation that does not use a race coefficient. Performed By: #### Jana COPELAND, #### [facility] ([id number]) [address], [address] [place] [address] Glucose [Mass/Vol] 89 mg/dL Normal 65-99 [facility] Comment on above: Performed By: #### Jana COPELAND, #### [facility] ([id number]) [address], [address] [place] [address] Potassium [Moles/Vol] 4.3 mmol/L Normal 3.5-5.0 [facility] Comment on above: Performed By: #### C DINORAH, 71831-0 #### [facility] ([id number]) [address], [address] [place] [address] Protein [Mass/Vol] 7.0 g/dL Normal 6.0-8.0 [facility] Comment on above: Performed By: #### Jana COPELAND, 59828-7 #### [facility] ([id number]) [address], [address] [place] [address] Sodium [Moles/Vol] 139 mmol/L Normal 134-146 [facility] Comment on above: Performed By: #### Jana COPELAND, 35831-9 #### [facility] ([id number]) [address], [address] [place] [address] Urea nitrogen [Mass/Vol] 17 mg/dL Normal 5-27 [facility] Comment on above: Performed By: #### Jana COPELAND, 48055-9 #### [facility] ([id number]) [address], [address] [place] [address] MAGNESIUMon 07-06-2023 Magnesium [Mass/Vol] 2.0 mg/dL Normal 1.8-2.6 [facility] Comment on above: Performed By: #### Jana COPELAND, 30358-3 #### [facility] ([id number]) [address], [facility] [address] [place] [address] Encounters Encounter Date Encounter Type Care Provider Facility Start: 10-03-2023 End: 10-03-2023 ambulatory BEENA FRANCO Not Available Start: 09-11-2023 End: 09-11-2023 ambulatory ROZINA JUAREZ [facility] Start: 08-17-2023 End: 08-17-2023 ambulatory JOSÉ MIGUEL GIRALDO [facility] Start: 08-08-2023 End: 08-08-2023 ambulatory BEENA FRANCO Not Available Start: 08-08-2023 End: 08-08-2023 ambulatory SB DEUTSCH Not Available Start: 07-23-2023 End: 07-24-2023 ambulatory Timi Toledo MD Facility: [facility] Start: 07-06-2023 End: 07-06-2023 Refill [facility] Comment on above: Med Refill Start: 07-03-2023 Telephone encounter Tala Justin RN [facility] Comment on above: Pt assist Mckennaindio Start: 05-10-2023 End: 06-08-2023 ambulatory [facility] Start: 05-09-2023 End: 05-09-2023 ambulatory SB DEUTSCH Not Available Start: 04-06-2023 End: 05-10-2023 ambulatory [facility] Start: 03-26-2023 End: 03-27-2023 ambulatory Timi Toledo MD Facility: [facility] Start: 03-12-2023 End: 03-12-2023 ambulatory SANGEETHA BARRAGAN Not Available Start: 03-05-2023 End: 03-06-2023 ambulatory Andangel Funkytrobbie Toledo MD Facility: [facility] Start: 01-01-2023 End: 01-02-2023 ambulatory Andrius Funkytautfer Lukeitis Facility: [facility] Start: 12-04-2022 End: 12-05-2022 ambulatory Andangel Funkytautfer Lukeitis Facility: [facility] Start: 05-20-2018 Patient encounter procedure Tala Justin RN [facility] Procedures Date Procedure Procedure Detail Performing Clinician Start: 07-20-2021 Adult depression scr eening assessment Tala Justin RN Plan of Treatment Date Care Activity Detail Author Start: 08-30-2032 DTaP,Tdap and Td Vaccines (3 - Td or Tdap) DTaP,Tdap and Td Vaccines (3 - Td or Tdap) [facility] Start: 02-16-2024 Adult BMI Screening Adult BMI Screening [facility] Start: 02-16-2024 Tobacco Screening Tobacco Screening [facility] Start: 08-17-2023 End: 08-17-2023 Patient encounter procedure 08/17/2023 9:00 AM EDT Office Visit [facility] [address] [facility] [address] [place] [address] José Miguel Giraldo MD [address] [place] [address] [facility] Start: 08-16-2023 End: 08-16-2023 Patient encounter procedure 08/16/2023 2:30 PM EDT Office Visit [facility] [address] [place] [address] Jacqui Ortiz DO [address] [facility] [address] [place] [address] [facility] Start: 12-08-2022 COVID-19 Vaccine ( season) COVID-19 Vaccine ( season) [facility] Start: 07-20-2022 Depression Screening Depression Screening [facility] Start: 06-13-2022 Fall Risk Screening Fall Risk Screening [facility] Start: 1987 Administration of varicella zoster vaccine Zoster (Shingles) Vaccine (1 of 2) [facility] Start: 1955 Adult BMI Follow Up Plan Adult BMI Follow Up Plan [facility] Immunizations Immunization Date Immunization Notes Care Provider Fa cility 08-30-2022 tetanus toxoid, redu sophy diphtheria toxoid, and acellular pertussis vaccine, adsorbed Tala Margoth RN [facility] 01-19-2021 Influenza, High-dose , Quadrivalent Tala Margoth RN [facility] 02-02-2020 Influenza, High-dose , Quadrivalent Tala Justin RN [facility] 01-21-2019 influenza, injectabl e, quadrivalent, preservative free Tala Justin RN [facility] 01-21-2019 tetanus toxoid, redu sophy diphtheria toxoid, and acellular pertussis vaccine, adsorbed Tala Margoth RN [facility] 04-25-2018 pneumococcal polysaccharide vaccine, 23 valent Tala Justin RN [facility] 01-02-2018 influenza, high dose seasonal, preservative-free Tala Justin RN [facility] 01-12-2017 influenza, injectabl e, quadrivalent, preservative free Tala Justin RN [facility] 01-13-2016 influenza virus vacc ine, unspecified formulation Tala Justin RN [facility] 03-23-2015 pneumococcal conjuga te vaccine, 13 valent Tala Justin RN [facility] Payers Date Payer Category Payer Private Health Insurance 2014 Medicare AETNA MEDICARE A ETNA MEDICARE PLAN (PPO) [id number] 2014-Present [phone] [address] [place] [address] [id number] 2014 Medicare [id number] 1937 Unknown [id number] [id number] 96 1937 Unknown [id number] 2.16840.1.623511.3.579.2.1 96 1937 Unknown [id number] 2.16840.1.985302.3.579.2.1 96 1937 Unknown [id number] 2.16.840.1.684627.3.579.2.1 96 1937 Unknown [id number] 2.16.840.1.514694.3.579.2.1 96 1937 Unknown [id number] 2.16.840.1.967724.3.579.2.1 286 1937 Unknown [id number] 2.16.840.1.973839.3.579.2.1 286 1937 Unknown [id number] 2.16.840.1.813101.3.579.2.1 286 1937 Unknown [id number] 2.16.840.1.634245.3.579.2.1 286 1937 Unknown [id number] 2.16.840.1.549073.3.579.2.1 286 1937 Unknown [id number] 2.16.840.1.941409.3.579.2.1 286 1937 Unknown [id number] 2.16.840.1.338312.3.579.2.1 286 1937 Unknown [id number] 2.16.840.1.654995.3.579.2.1 259 1937 Unknown [id number] 2.16.840.1.678416.3.579.2.1 259 1937 Unknown [id number] 2.16.840.1.110145.3.579.2.1 259 1937 Unknown [id number] 2.16.840.1.972364.3.579.2.1 259 1937 Unknown [id number] 2.16.840.1.074503.3.579.2.1 259 Social History Date Type Detail Facility Start: 08-07-2022 Tobacco smoking stat [facility] Never smoked tobacco [facility] Start: 08-07-2022 Tobacco use and exposure Smokeless tobacco non-user [facility] Start: 02-15-2023 Alcohol intake Lifetime non-d abhi (finding) [facility] Start: 05-20-2020 End: 02-15-2023 History of Social function [facility] Start: 05-20-2020 End: 02-15-2023 Tobacco use panel [facility] Adolescent depressio n screening assessment 0 [facility] Start: 1935 Sex Assigned At Not on file P [facility] Note 07-06-2023 Telephone Encounter - Michelle Au RN - 07/06/2023 10:55 AM EDT Note Date & Type Note Facility 07-06-2023 Miscellaneous Notes Formattin g of this note might be different from the original. Pt stopped by office after lab work to request refills of eliquis. OV 08/07/22, pt scheduled for f/u 08/17/23 07/06/23 CMP, MAG 08/30/22 CBC documented in this encounter [facility] Telephone encounter Note 07-06-2023 Telephone Encounter - Michelle Au RN - 07/06/2023 10:55 AM EDT Note Date & Type Note Facility 07-06-2023 Telephone encount er Note Pt stopped by office after lab work to request refills of eliquis. OV 08/07/22, pt scheduled for f/u 08/17/23 07/06/23 CMP, MAG 08/30/22 CBC [facility] Note 07-03-2023 Telephone Encounter - Tala Justin RN - 07/03/2023 9:53 AM EDT Note Date & Type Note Facility 07-03-2023 Miscellaneous Notes Formattin g of this note might be different from the original. New enrollment forms w/ financial information faxed to [facility] documented in this encounter [facility] Telephone encounter Note 07-03-2023 Telephone Encounter - Tala Justin RN - 07/03/2023 9:53 AM EDT Note Date & Type Note Facility 07-03-2023 Telephone encount er Note New enrollment forms w/ financial information faxed to [facility] Instructions Note Date & Type Note Facility Instructions Not on filedocumented in this en counter [facility] Instructions Note Date & Type Note Facility Instructions Not on filedocumented in this en counter [facility] Summary Purpose Family History No Family History Records FoundNo Family History Records FoundNo Family History Records Found Advance Directives No Advanced Directives Records FoundNo Advanced Directives Records FoundNo Advanced Directives Records Found Additional Source Comments Reason for Visit (unrecogniz ed section and content) Reason Onset Date Comments Pt assist Eliquis 07/03/2023 Reason Onset Date Comments Med Refill 07/06/2023 Care Teams (unrecognized sec tion and content) [employer] Fib[employer] Drawer Relationship Specialty Start Date End Date Rozina Juarez MD [address] [place] [id number] [facility] 10/12/21 Optic Fibre Drawer Relationship Specialty Start Date End Date Rozina Juarez MD [address] [place] [address] [phone] PCP - General Family Medicine 10/12/21 (unrecognized sect ion and content) No Status Records FoundNo Status Records FoundNo Status Records Found INFORMATION SOURCE (unrecogn ized section and content) DATE CREATED AUTHOR 07/28/2023 [facility] DATE CREATED AUTHOR AUTHOR'S ORGANIZ ATION 09/12/2023 [facility] DATE CREATED AUTHOR AUTHOR'S ORGANIZ ATION 10/04/2023 [facility] EPIC FOR RECORDS PERTAINING TO PATIENTS WHO ARE [...] BE BASED ON THE PRIMARY CLINICAL RECORDS. [employer] provides no warranty or guarantee of the accuracy or completeness of information in this document.
[2023-10-08 11:10] VITALS: BP 124/82; PULSE 84; TEMP 36.4; O2SAT 97
[2023-10-08] MEDS: LIDOCAINE HCL 2% 400 MG/20 ML MDV INJ (11:45)
[2023-10-08] MEDS: BUPIVACAINE HCL 0.25% PF 25 MG/10 ML VIAL 8 ML INJ (11:45)
[2023-10-08 11:46] VITALS: BP 137/87; PULSE 88; O2SAT 96
[2023-10-08 11:48] VITALS: BP 133/77; PULSE 88; O2SAT 94
--- NOTE | 2023-10-08 11:48 | W.PM.PROCNOT ---
Date of procedure: 10/08/23 Pre-op diagnosis: Pain due to lumbar spondylosis without myelopathy Post-op diagnosis: same as pre-op Procedure: Procedure: Bilateral L2-3, L3-4 medial branch block Medications: Bupivacaine 0.25% 6cc The patient was seen and examined in the preoperative holding area.? An informed consent was obtained and placed on the chart.? The patient was brought to the medical procedure unit and placed in the prone position.? A timeout was completed verifying correct patient, procedure site, positioning, plan, and special equipment.? Using aseptic technique, the needle was placed at left L2. Under direct fluoroscopic visualization a Quincke-tipped spinal needle was advanced to the junction of the superior articulating process with the transverse process at the designated medial branch segment.? Preceded by negative aspiration, the above-mentioned injectate was placed in 1 mL aliquots.? The procedure was repeated at left L3, 4.? The needle was removed and insertion site was covered. The same procedure, at the same levels, was completed on the right side. The patient was taken to the postprocedural recovery area and monitored for an appropriate length of time before found suitable for discharge in the company of a responsible adult. Anesthesia: Local Surgeon: Timi Toledo Pathology: none sent Condition: stable Disposition: no change
== END 2023-10-08 11:56 | disposition home or self-care (01) ==
LOC: SURGOUT 10:45
PROVIDERS: Visit Provider Anesthesiology
DX: M47.816 Spondylosis without myelopathy or radiculopathy, lumbar region (principal)
CPT/HCPCS: 64493; 64494; J0665

== ENCOUNTER 2023-10-10 09:27 | Outpatient (OUT) | payer MEDICARE, SELFPAY ==
--- OUTSIDE RECORDS SUMMARY | 2023-10-10 09:48 | XMS_ITS | CCD ---
Author Organization [facility] Care Team Providers Care Bread Dumper Name Role Phone Ann BETANCOURT, Rozina Lau [...] 24 ABSOLUTE BASOPHIL 0.0 X10E9/L Normal 0.0-0.2 [facility] Comment on above: Performed By: #### C BCA #### [facility] ([id number]) [address] [place] [address] 44958 ABSOLUTE NEUTROPHIL 4.9 X10E9/L Normal 1.5-6.6 [facility] Comment on above: Performed By: #### C BCA #### [facility] ([id number]) [address] [place] [address] 53515 Basophils/100 WBC (Bld) 0.4 % Normal [facility] Comment on above: Performed By: #### C BCA #### [facility] ([id number]) [address] [place] [address] 66827 Eosinophils (Bld) [#/Vol] 0.1 10*3/uL Normal 0.0-0.4 [facility] Comment on above: Performed By: #### C BCA #### [facility] ([id number]) [address] [place] [address] 24171 Eosinophils/100 WBC (Bld) 1.4 % Normal [facility] Comment on above: Performed By: #### C BCA #### [facility] ([id number]) [address] [place] [address] 36920 Erythrocyte distribution width (RBC) [Ratio] 13.3 % Normal 11.5-15.0 [facility] Comment on above: Performed By: #### C BCA #### [facility] ([id number]) [address] [place] [address] 12571 Hematocrit (Bld) [Volume fraction] 41.1 % Normal 39-49 [facility] Comment on above: Performed By: #### C BCA #### [facility] ([id number]) [address] [place] [address] 83872 Hemoglobin (Bld) [Mass/Vol] 14.2 g/dL Normal 13.0-17.0 [facility] Comment on above: Performed By: #### C BCA #### [facility] ([id number]) [address] [place] [address] 82023 Lymphocytes (Bld) [#/Vol] 1.6 10*3/uL Normal 1.0-3.5 [facility] Comment on above: Performed By: #### C BCA #### [facility] ([id number]) [address] [place] [address] 91785 Lymphocytes/100 WBC (Bld) 20.6 % Normal [facility] Comment on above: Performed By: #### C BCA #### [facility] ([id number]) [address] [place] [address] 47106 MCH (RBC) [Entitic mass] 33.1 pg Normal 27-34 [facility] Comment on above: Performed By: #### C BCA #### [facility] ([id number]) [address] [place] [address] 77771 MCHC (RBC) [Mass/Vol] 34.6 g/dL Normal 32-36 [facility] Comment on above: Performed By: #### C BCA #### [facility] ([id number]) [address] [place] [address] 30920 MCV (RBC) [Entitic vol] 96 fL Normal 80-100 [facility] Comment on above: Performed By: #### C BCA #### [facility] ([id number]) [address] [place] [address] 27903 Monocytes (Bld) [#/Vol] 1.0 10*3/uL High 0-0.9 [facility] Comment on above: Performed By: #### C BCA #### [facility] ([id number]) [address] [place] [address] 49442 Monocytes/100 WBC (Bld) 13.4 % Normal [facility] Comment on above: Performed By: #### C BCA #### [facility] ([id number]) [address] [place] [address] 50156 Neutrophils/100 WBC (Bld) 64.2 % Normal [facility] Comment on above: Performed By: #### C BCA #### [facility] ([id number]) [address] [place] [address] 33818 Platelet mean volume (Bld) [Entitic vol] 7.8 fL Normal 7-12 [facility] Comment on above: Performed By: #### C BCA #### [facility] ([id number]) [address] [place] [address] 98789 Platelets (Bld) [#/Vol] 237 10*3/uL Normal 150-450 [facility] Comment on above: Performed By: #### C BCA #### [facility] ([id number]) [address] [place] [address] 73151 RBC COUNT 4.30 X10E12/L Normal 4.10-5.70 [facility] Comment on above: Performed By: #### C BCA #### [facility] ([id number]) [address] [place] [address] WBC (Bld) [#/Vol] 7.7 10*3/uL Normal 4.0-11.0 [facility] Comment on above: Performed By: #### C BCA #### [facility] ([id number]) [address] [place] [address] 95246 XR SHOULDER LT MIN 2 VWSon 0 [...] Quintanilla MD on 07/07/2023 8:02 AM Normal [facility] XR SHOULDER RT MIN 2 VWSon 0 [...] Walker MD on 07/07/2023 11:03 AM Normal [facility] COMPREHENSIVE METABOLIC PANE George 07-06-2023 Albumin [Mass/Vol] 4.0 g/dL Normal 3.2-5.3 [facility] Comment on above: Performed By: #### Jana COPELAND, #### [facility] ([id number]) [address], [address] [place] [address] ALP [Catalytic activity/Vol] 64 U/L Normal 39-130 [facility] Comment on above: Performed By: #### Jana COPELAND, [id number] #### [facility] ([id number]) [address], [address] [place] [address] ALT [Catalytic activity/Vol] 5 U/L Normal 0-40 [facility] Comment on above: Performed By: #### Jana COPELAND, #### [facility] ([id number]) [address], [address] [place] [address] Anion gap [Moles/Vol] 9 mmol/L Normal 5-15 [facility] Comment on above: Performed By: #### Jana COPELAND, #### [facility] ([id number]) [address], [address] [place] [address] AST [Catalytic activity/Vol] 22 U/L Normal 0-41 [facility] Comment on above: Performed By: #### Jana COPELAND, #### [facility] ([id number]) [address] [place] [address] Bilirubin [Mass/Vol] 0.8 mg/dL Normal 0.3-1.2 [facility] Comment on above: Performed By: #### Jana COPELAND, #### [facility] ([id number]) [address], [address] [place] [address] Calcium [Mass/Vol] 9.2 mg/dL Normal 8.5-10.5 [facility] Comment on above: Performed By: #### Jana COPELAND, #### [facility] ([id number]) [address] [place] [address] Chloride [Moles/Vol] 103 mmol/L Normal 98-109 [facility] Comment on above: Performed By: #### Jana COPELAND, #### [facility] ([id number]) [address] [place] [address] CO2 [Moles/Vol] 27 mmol/L Normal 22-32 [facility] Comment on above: Performed By: #### Jana COPELAND, #### [facility] ([id number]) [address] [place] [address] Creatinine [Mass/Vol] 0.86 mg/dL Normal 0.60-1.30 [facility] Comment on above: Result Comment: METH OD TRACEABLE TO IDMS STANDARD Performed By: #### Jana COPELAND, #### [facility] ([id number]) [address], [address] [place] [address] GFR/1.73 sq M.predicted among non-blacks MDRD (S/P/Bld) [Vol rate/Area] 84 mL/min/{1.73_m2} Normal >59 [facility] Comment on above: Result Comment: Reported eGFR is based on the CKD-EPI 2020 equation that does not use a race coefficient. Performed By: #### Jana COPELAND, #### [facility] ([id number]) [address], [address] [place] [address] Glucose [Mass/Vol] 89 mg/dL Normal 65-99 [facility] Comment on above: Performed By: #### Jana COPELAND, #### [facility] ([id number]) [address], [address] [place] [address] Potassium [Moles/Vol] 4.3 mmol/L Normal 3.5-5.0 [facility] Comment on above: Performed By: #### C DINORAH, 51643-8 #### [facility] ([id number]) [address] [place] [address] Protein [Mass/Vol] 7.0 g/dL Normal 6.0-8.0 [facility] Comment on above: Performed By: #### Jana COPELAND, 71493-6 #### [facility] ([id number]) [address] [place] [address] Sodium [Moles/Vol] 139 mmol/L Normal 134-146 [facility] Comment on above: Performed By: #### Jana COPELAND, 35977-8 #### [facility] ([id number]) [address] [place] [address] Urea nitrogen [Mass/Vol] 17 mg/dL Normal 5-27 [facility] Comment on above: Performed By: #### Jana COPELAND, 98461-5 #### [facility] ([id number]) [address] [place] [address] MAGNESIUMon 07-06-2023 Magnesium [Mass/Vol] 2.0 mg/dL Normal 1.8-2.6 [facility] Comment on above: Performed By: #### Jana COPELAND, 26461-8 #### [facility] ([id number]) [address] [facility] [address] [place] [address] Encounters Encounter Date Encounter Type Care Provider Facility Start: 10-03-2023 End: 10-03-2023 ambulatory BEENA FRANCO Not Available Start: 09-11-2023 End: 09-11-2023 ambulatory ROZINA JUAREZ [facility] Start: 08-17-2023 End: 08-17-2023 ambulatory JOSÉ MIGUEL GIRALDO [facility] Start: 08-08-2023 End: 08-08-2023 ambulatory BEENA FRANCO Not Available Start: 08-08-2023 End: 08-08-2023 ambulatory SB DEUTSCH Not Available Start: 07-23-2023 End: 07-24-2023 ambulatory Timi Toledo MD Facility: [facility] Start: 07-06-2023 End: 07-06-2023 [facility]ill [facility] Comment on above: Med Refill Start: 07-03-2023 Telephone encounter Tala Justin RN [facility] Comment on above: Pt assist cMkennaindio Start: 05-10-2023 End: 06-08-2023 ambulatory [facility] Start: 05-09-2023 End: 05-09-2023 ambulatory SB DEUTSCH Not Available Start: 04-06-2023 End: 05-10-2023 ambulatory [facility] Start: 03-26-2023 End: 03-27-2023 ambulatory Timi Toledo MD Facility: [facility] Start: 03-12-2023 End: 03-12-2023 ambulatory SANGEETHA BARRAGAN Not Available Start: 03-05-2023 End: 03-06-2023 ambulatory Andangel Funkytrobbie Toledo MD [facility]: [facility] Start: 01-01-2023 End: 01-02-2023 ambulatory Andrius Funkytautfer Lukeitis Facility: [facility] Start: 12-04-2022 End: 12-05-2022 ambulatory Andangel Funkytautfer Lukeitis [facility]: [facility] Start: 05-20-2018 Patient encounter procedure Tala Justin RN [facility] Procedures Date Procedure Procedure Detail Performing Clinician Start: 07-20-2021 Adult depression scr eening assessment Tala Justin RN Plan of Treatment Date Care Activity Detail Author Start: 08-30-2032 DTaP,Tdap and Td Vaccines (3 - Td or Tdap) DTaP,Tdap and Td Vaccines (3 - Td or Tdap) [facility] Start: 02-16-2024 Adult BMI Screening Adult BMI Screening [facility] Start: 02-16-2024 Tobacco Screening Tobacco Screening [facility] Start: 08-17-2023 End: 08-17-2023 Patient encounter procedure 08/17/2023 9:00 AM EDT Office Visit [facility] [address] [facility] [address] [place] [address] José Miguel Giraldo MD [address] [place] [address] [facility] Start: 08-16-2023 End: 08-16-2023 Patient encounter procedure 08/16/2023 2:30 PM EDT Office Visit [facility] [address] [facility] [address] [address] [address] [place] [address] Jacqui Ortiz DO [address] [facility] [address] [place] [address] [facility] Start: 12-08-2022 COVID-19 Vaccine ( season) COVID-19 Vaccine ( season) [facility] Start: 07-20-2022 Depression Screening Depression Screening [facility] Start: 06-13-2022 Fall Risk Screening Fall Risk Screening [facility] Start: 1987 Administration of varicella zoster vaccine Zoster (Shingles) Vaccine (1 of 2) [facility] Start: 1955 Adult BMI Follow Up Plan Adult BMI Follow Up Plan [facility] Immunizations Immunization Date Immunization Notes Care Provider Fa cility 08-30-2022 tetanus toxoid, redu sophy diphtheria toxoid, and acellular pertussis vaccine, adsorbed Tala Margoth RN [facility] 01-19-2021 Influenza, High-dose , Quadrivalent Tala Margoth RN [facility] 02-02-2020 Influenza, High-dose , Quadrivalent Tala Justin RN [facility] 01-21-2019 influenza, injectabl e, quadrivalent, preservative free Tala Justin RN [facility] 01-21-2019 tetanus toxoid, redu sophy diphtheria toxoid, and acellular pertussis vaccine, adsorbed Tala Margoth RN [facility] 04-25-2018 pneumococcal polysaccharide vaccine, 23 valent Tala Justin RN [facility] 01-02-2018 influenza, high dose seasonal, preservative-free Tala Justin RN [facility] 01-12-2017 influenza, injectabl e, quadrivalent, preservative free Tala Justin RN [facility] 01-13-2016 influenza virus vacc ine, unspecified formulation Tala Justin RN [facility] 03-23-2015 pneumococcal conjuga te vaccine, 13 valent Tala Justin RN [facility] Payers Date Payer Category Payer Private Health Insurance 2014 Medicare AETNA MEDICARE A ETNA MEDICARE PLAN (PPO) [id number] 2014-Present [phone] [address] [place] [address] [id number] 2014 Medicare [id number] 1937 Unknown [id number] [id number] 96 1937 Unknown [id number] 2.16840.1.195139.3.579.2.1 96 1937 Unknown [id number] 2.16840.1.016946.3.579.2.1 96 1937 Unknown [id number] 2.16.840.1.772275.3.579.2.1 96 1937 Unknown [id number] 2.16.840.1.904321.3.579.2.1 96 1937 Unknown [id number] 2.16.840.1.883440.3.579.2.1 286 1937 Unknown [id number] 2.16.840.1.665732.3.579.2.1 286 1937 Unknown [id number] 2.16.840.1.534052.3.579.2.1 286 1937 Unknown [id number] 2.16.840.1.485215.3.579.2.1 286 1937 Unknown [id number] 2.16.840.1.561259.3.579.2.1 286 1937 Unknown [id number] 2.16.840.1.715285.3.579.2.1 286 1937 Unknown [id number] 2.16.840.1.519349.3.579.2.1 286 1937 Unknown [id number] 2.16.840.1.841492.3.579.2.1 259 1937 Unknown [id number] 2.16.840.1.207900.3.579.2.1 259 1937 Unknown [id number] 2.16.840.1.719206.3.579.2.1 259 1937 Unknown [id number] 2.16.840.1.585619.3.579.2.1 259 1937 Unknown [id number] 2.16.840.1.171342.3.579.2.1 259 Social History Date Type Detail Facility Start: 08-07-2022 Tobacco smoking stat [facility] Never smoked tobacco [facility] Start: 08-07-2022 Tobacco use and exposure Smokeless tobacco non-user [facility] Start: 02-15-2023 Alcohol intake Lifetime non-d abhi (finding) [facility] Start: 05-20-2020 End: 02-15-2023 History of Social function [facility] Start: 05-20-2020 End: 02-15-2023 Tobacco use panel [facility] Adolescent depressio n screening assessment 0 [facility] Start: 1935 Sex Assigned At Not on file [facility] Note 07-06-2023 Telephone Encounter - Michelle Au [...] enrollment forms w/ financial information faxed to [facility] [place] [place] documented in this encounter [facility] Telephone encounter Note 07-03-2023 Telephone Encounter - Tala Justin RN - 07/03/2023 9:53 AM EDT Note Date & Type Note Facility 07-03-2023 Telephone encount er Note New enrollment forms w/ financial information faxed to [facility] [place] [place] [facility] Instructions Note Date & [...] Care Teams (unrecognized sec tion and content) Bread Dumper Relationship Specialty Start Date End Date Rozina Juarez MD [address] [place] [id number] PCP - [facility] 10/12/21 Bread Dumper Relationship Specialty Start Date End Date Rozina Juarez MD [address] [place] [address] [phone] PCP - General Family Medicine 10/12/21 (unrecognized sect ion and content) No Status Records FoundNo Status Records FoundNo Status Records Found INFORMATION SOURCE (unrecogn ized section and content) DATE CREATED AUTHOR 07/28/2023 [facility] DATE CREATED AUTHOR AUTHOR'S ORGANIZ ATION 09/12/2023 [facility] DATE CREATED AUTHOR AUTHOR'S ORGANIZ ATION 10/04/2023 [facility] EPIC FOR RECORDS PERTAINING TO [...] BE BASED ON THE PRIMARY CLINICAL RECORDS. [employer] provides no warranty or guarantee of the accuracy or completeness of information in this document.
--- NOTE | 2023-10-10 09:55 | PM.CN ---
Consult Note: HPI Data of Consult Patient: known to practice within the last 3 years Consult date: 07/23/23 Requesting Physician: Sana Smith NP Primary Care Provider: Non-Staff Physician, MD Consult Narrative Reason for consult: left shoulder pain, low back pain Narrative: Vance Cosme a pleasant 77 year old male presents for evaluation of chronic low back pain and bilateral leg weakness, as well as bilateral shoulder pain. Pain 0/10 today. In the past, no improvement from bilateral L3-4 and bilateral L4-5 TFESIs. Stopped tramadol as it caused constipation and did not help enough. Tylenol with mild benefit. No NSAIDs with eliquis. Could not tolerate cymablta as this caused shaking and weakness. Completed greater than 6 weeks of PT without benefit. Patient reporting >50% ongoing improvement in pain and functional ability since left shoulder injection with Dr Toledo. Chronic low back pain increasing to 7/10 with standing walking activity, improved with sitting. Recently underwent bilateral L2-3 L3-4 facet medial branch block #1 with >80% improvement in low back pain immediately following and hours after the injection. cc:: CC: Sana Smith NP Review of Systems ROS Status of ROS 10 or more systems reviewed and unremarkable except as noted in history and below Musculoskeletal Reports: back pain PFSH [facility] Medical History (Updated 10/02/23 @ 13:58 by Dari Ayala) Low back pain ?M54.50 - Low back pain, unspecified (ICD-10) Osteoarthritis ?M19.90 - Unspecified osteoarthritis, unspecified site (ICD-10) Sleep apnea ?G47.30 - Sleep apnea, unspecified (ICD-10) Irregular heart beat ?I49.9 - Cardiac arrhythmia, unspecified (ICD-10) Surgical History Hx of surgical amputation of finger ?Z89.029 - Acquired absence of unspecified finger(s) (ICD-10) H/O elbow surgery ?Z98.890 - Other specified postprocedural states (ICD-10) S/P cataract extraction ?Z98.49 - Cataract extraction status, unspecified eye (ICD-10) S/P hernia repair ?Z98.890 - Other specified postprocedural states (ICD-10) ?Z87.19 - Personal history of other diseases of the digestive system (ICD-10) S/P left knee arthroscopy ?Z98.890 - Other specified postprocedural states (ICD-10) S/P total knee arthroplasty ?Z96.659 - Presence of unspecified artificial knee joint (ICD-10) S/P shoulder surgery ?Z98.890 - Other specified postprocedural states (ICD-10) S/P bunionectomy ?Z98.890 - Other specified postprocedural states (ICD-10) Social History Smoking status: Never smoker Meds Home Medications and Allergies Home Medications ?Medication ?Instructions ?Recorded ?Confirmed ?Type acetaminophen 650 mg 650 mg PO Q8H PRN pain 12/04/22 10/08/23 History tablet,extended release (8 Hour Pain Reliever) apixaban 5 mg tablet (Eliquis) 5 mg PO BID 12/04/22 10/08/23 History ascorbic acid (vitamin C) 500 mg 500 mg PO DAILY 12/04/22 10/08/23 History tablet (C-500) cholecalciferol (vitamin D3) 25 25 mcg PO DAILY 12/04/22 10/08/23 History mcg (1,000 unit) tablet (Vitamin D3) furosemide 20 mg tablet (Lasix) 20 mg PO DAILY 12/04/22 10/08/23 History magnesium 200 mg tablet 400 mg PO DAILY 12/04/22 10/08/23 History metoprolol succinate 25 mg 25 mg PO BID 12/04/22 10/08/23 History tablet,extended release 24 hr (Toprol XL) multivitamin 1 tab PO DAILY 12/04/22 10/08/23 History vitamin E 268 mg (400 unit) capsule 268 mg PO DAILY 12/04/22 10/08/23 History carbidopa 25 mg-levodopa 100 mg 1 tab PO TID 07/04/23 10/08/23 History tablet (Sinemet) Allergies Allergy/AdvReac Type Severity Reaction Status Date / Time No Known Drug Allergies Allergy Verified 10/08/23 11:12 Exam Constitutional Documenting provider has reviewed patient's vital signs: yes Common normals: no apparent distress, oriented x3, healthy appearing, alert and well nourished General appearance: cooperative HENMT Common normals: normocephalic, hearing grossly normal bilaterally and moist oral mucous membranes Head and scalp: normocephalic Eye Common normals: PERRL Pupil: PERRL Neck & C-Spine Common normals: full ROM General: normal visual inspection Chest Common normals: inspection of chest normal Respiratory Common normals: normal respiratory effort, no retractions and no use of accessory muscles Back & Pelvis Lumbar spine/lower back: ROM limited, pain with ROM and straight leg raise negative bilaterally Other: weakness upon standing and with walking symptoms improved with sitting positive facet loading bilaterally Extremity Common normals: normal to inspection and full ROM Right upper extremity: shoulder joint Left upper extremity: shoulder joint Other: bilateral shoulder pain, positive scratch test, positive empty can, tenderness over bilateral AC joints. ROM intact Neuro Common normals: oriented x3, CN's II-XII intact bilaterally, moves all extremities, no focal motor deficits, no sensory deficits noted and deep tendon reflexes 2+ bilaterally Sensorium/orientation: alert Motor exam: strength 5/5 throughout and no movement abnormalities noted Psych Common normals: mental status grossly normal, thought process normal, cooperative, affect normal, speech normal and activity/motor behavior normal Speech: normal speech Thought process: normal thought process Results Additional Findings Additional findings: If on a controlled substance or opioids, I have checked an [place]AR[place] report on this patient and there are no aberrancies noted in the prescribing history.??If on a controlled substance or opioid a drug screen was completed and reviewed within the last year, and if there has not been a drug screen completed we ordered one today to monitor higher risk, state monitored pain medication use. As part of providing excellent, safe, comprehensive care, the following was completed at our patient's visit: 1. A medication reconciliation and review to ensure accurate knowledge of current/active medications, including asking our patients to inform us about any gisu-yxc-dfnuvbs medications or herbal remedies/nutritional supplements/alternative remedies. 2. A review to specifically ensure our patients have had annual screening for screening for depression, screening for tobacco use, and screening for unhealthy alcohol use. For concerning screenings had a discussion with the patient, provided patient education, and recommended follow-up with primary care provider when appropriate. If patient noted with a risk of falling, they received education on strength, gait, and balance training to prevent future risk of falling. 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
== END 2023-10-10 09:28 | disposition home or self-care (01) ==
LOC: PM 09:28
PROVIDERS: Visit Provider Nurse Practitioner
DX: M47.816 Spondylosis without myelopathy or radiculopathy, lumbar region (principal); M19.012 Primary osteoarthritis, left shoulder; M48.062 Spinal stenosis, lumbar region with neurogenic claudication
CPT/HCPCS: G0463

== ENCOUNTER 2023-10-29 09:48 | Day surgery (SDC) | payer MEDICARE, SELFPAY ==
--- OUTSIDE RECORDS SUMMARY | 2023-10-29 10:08 | XMS_ITS | CCD ---
Author Organization [facility] Care Team Providers Care Cargo Checker Name Role Phone Rozina Juarez MD Primary Care Provider ASHKAN RUIZ Referring Unavailable JUAREZ, ROZINA L [...] FRANCO Attending Unavailable BEENA FRANCO Attending Unavailable Tre BETANCOURT, Andrius Kenney Attending Unavailable Tre BETANCOURT, Andrius Anne Marie Attending Unavailable Tre BETANCOURT, Andrius Anne Marie Attending Unavailable Tre BETANCOURT, Andrius Anne Marie Attending Unavailable Tre BETANCOURT, Andrius Anne Marie Attending Unavailable Tre BETANCOURT, Andrius Anne Marie Attending Unavailable PAXTON Franco Attending Provider [phone] Beena Franco Attending Unavailable Beena Franco Admitting Unavailable Medications Current Medications Medication Drug Class(es) [...] tablet (2 sources) beta-Adrenergic Hien Start: 02-21-20 23 take 1 tablet by mouth in the [...] 24 ABSOLUTE BASOPHIL 0.0 X10E9/L Normal 0.0-0.2 [facility] Comment on above: Performed By: #### C BCA #### [facility] ([id number]) [address] [place] [address] ABSOLUTE NEUTROPHIL 4.9 X10E9/L Normal 1.5-6.6 [facility] Comment on above: Performed By: #### C BCA #### [facility] ([id number]) [address] [place] [address] 37970 Basophils/100 WBC (Bld) 0.4 % Normal [facility] Comment on above: Performed By: #### C BCA #### [facility] ([id number]) [address] [place] [address] 08518 Eosinophils (Bld) [#/Vol] 0.1 10*3/uL Normal 0.0-0.4 [facility] Comment on above: Performed By: #### C BCA #### [facility] ([id number]) [address] [place] [address] 32831 Eosinophils/100 WBC (Bld) 1.4 % Normal [facility] Comment on above: Performed By: #### C BCA #### [facility] ([id number]) [address] [place] [address] 56417 Erythrocyte distribution width (RBC) [Ratio] 13.3 % Normal 11.5-15.0 [facility] Comment on above: Performed By: #### C BCA #### [facility] ([id number]) [address] [place] [address] 54046 Hematocrit (Bld) [Volume fraction] 41.1 % Normal 39-49 [facility] Comment on above: Performed By: #### C BCA #### [facility] ([id number]) [address] [place] [address] 00489 Hemoglobin (Bld) [Mass/Vol] 14.2 g/dL Normal 13.0-17.0 [facility] Comment on above: Performed By: #### C BCA #### [facility] ([id number]) [address] [place] [address] 31881 Lymphocytes (Bld) [#/Vol] 1.6 10*3/uL Normal 1.0-3.5 [facility] Comment on above: Performed By: #### C BCA #### [facility] ([id number]) [address] [place] [address] 45673 Lymphocytes/100 WBC (Bld) 20.6 % Normal [facility] Comment on above: Performed By: #### C BCA #### [facility] ([id number]) [address] [place] [address] 78083 MCH (RBC) [Entitic mass] 33.1 pg Normal 27-34 [facility] Comment on above: Performed By: #### C BCA #### [facility] ([id number]) [address] [place] [address] 88982 MCHC (RBC) [Mass/Vol] 34.6 g/dL Normal 32-36 [facility] Comment on above: Performed By: #### C BCA #### [facility] ([id number]) [address] [place] [address] 37441 MCV (RBC) [Entitic vol] 96 fL Normal 80-100 [facility] Comment on above: Performed By: #### C BCA #### [facility] ([id number]) [address] [place] [address] 54724 Monocytes (Bld) [#/Vol] 1.0 10*3/uL High 0-0.9 [facility] Comment on above: Performed By: #### C BCA #### [facility] ([id number]) [address] [place] [address] 53922 Monocytes/100 WBC (Bld) 13.4 % Normal [facility] Comment on above: Performed By: #### C BCA #### [facility] ([id number]) [address] [place] [address] 69514 Neutrophils/100 WBC (Bld) 64.2 % Normal [facility] Comment on above: Performed By: #### C BCA #### [facility] ([id number]) [address] [place] [address] 18208 Platelet mean volume (Bld) [Entitic vol] 7.8 fL Normal 7-12 [facility] Comment on above: Performed By: #### C BCA #### [facility] ([id number]) [address] [place] [address] 05628 Platelets (Bld) [#/Vol] 237 10*3/uL Normal 150-450 [facility] Comment on above: Performed By: #### C BCA #### [facility] ([id number]) [address] [place] [address] 27046 RBC COUNT 4.30 X10E12/L Normal 4.10-5.70 [facility] Comment on above: Performed By: #### C BCA #### [facility] ([id number]) [address] [facility], [place] [address] WBC (Bld) [#/Vol] 7.7 10*3/uL Normal 4.0-11.0 [facility] Comment on above: Performed By: #### C BCA #### [facility] ([id number]) [address] [facility], [place] [address] XR SHOULDER LT MIN 2 VWSon 0 [...] Quintanilla MD on 07/07/2023 8:02 AM Normal [facility] XR SHOULDER RT MIN 2 VWSon [...] Walker MD on 07/07/2023 11:03 AM Normal [facility] COMPREHENSIVE METABOLIC PANE George 07-06-2023 Albumin [Mass/Vol] 4.0 g/dL Normal 3.2-5.3 [facility] Comment on above: Performed By: #### C DINORAH, #### [facility] ([id number]) [address], [address] [place] [address] ALP [Catalytic activity/Vol] 64 U/L Normal 39-130 [facility] Comment on above: Performed By: #### C DINORAH, #### [facility] ([id number]) [address], [address] [place] [address] ALT [Catalytic activity/Vol] 5 U/L Normal 0-40 [facility] Comment on above: Performed By: #### Jana COPELAND, #### [facility] ([id number]) [address], [address] [place] [address] Anion gap [Moles/Vol] 9 mmol/L Normal 5-15 [facility] Comment on above: Performed By: #### C DINORAH, #### [facility] ([id number]) [address], [address] [place] [address] AST [Catalytic activity/Vol] 22 U/L Normal 0-41 [facility] Comment on above: Performed By: #### C DINORAH, #### [facility] ([id number]) [address], [address] [place] [address] Bilirubin [Mass/Vol] 0.8 mg/dL Normal 0.3-1.2 [facility] Comment on above: Performed By: #### Jana COPELAND, #### [facility] ([id number]) [address], [address] [place] [address] Calcium [Mass/Vol] 9.2 mg/dL Normal 8.5-10.5 [facility] Comment on above: Performed By: #### Jana COPELAND, #### [facility] ([id number]) [address], [address] [place] [address] Chloride [Moles/Vol] 103 mmol/L Normal 98-109 [facility] Comment on above: Performed By: #### Jana COPELAND, #### [facility] ([id number]) [address], [address] [place] [address] CO2 [Moles/Vol] 27 mmol/L Normal 22-32 [facility] Comment on above: Performed By: #### Jana COPELAND, #### [facility] ([id number]) [address], [address] [place] [address] Creatinine [Mass/Vol] 0.86 mg/dL Normal 0.60-1.30 [facility] Comment on above: Result Comment: METH OD TRACEABLE TO IDMS STANDARD Performed By: #### Jana COPELAND, #### [facility] ([id number]) [address], [address] [place] [address] GFR/1.73 sq M.predicted among non-blacks MDRD (S/P/Bld) [Vol rate/Area] 84 mL/min/{1.73_m2} Normal >59 [facility] Comment on above: Result Comment: Reported eGFR is based on the CKD-EPI 1 equation that does not use a race coefficient. Performed By: #### Jana COPELAND, #### [facility] ([id number]) [address], [address] [place] [address] Glucose [Mass/Vol] 89 mg/dL Normal 65-99 [facility] Comment on above: Performed By: #### Jana COPELAND, #### [facility] ([id number]) [address], [address] [place] [address] Potassium [Moles/Vol] 4.3 mmol/L Normal 3.5-5.0 [facility] Comment on above: Performed By: #### C DINORAH, 15489-5 #### [facility] ([id number]) [address], [address] [place] [address] Protein [Mass/Vol] 7.0 g/dL Normal 6.0-8.0 [facility] Comment on above: Performed By: #### C DINORAH, 05648-4 #### [facility] ([id number]) [address], [address] [place] [address] Sodium [Moles/Vol] 139 mmol/L Normal 134-146 [facility] Comment on above: Performed By: #### Jana COPELAND, 38048-8 #### [facility] ([id number]) [address], [address] [place] [address] Urea nitrogen [Mass/Vol] 17 mg/dL Normal 5-27 [facility] Comment on above: Performed By: #### Jana COPELAND, 60330-4 #### [facility] ([id number]) [address], [address] [place] [address] MAGNESIUMon 07-06-2023 Magnesium [Mass/Vol] 2.0 mg/dL Normal 1.8-2.6 [facility] Comment on above: Performed By: #### C DINORAH, 97652-7 #### [facility] ([id number]) [address], [address] [place] [address] Encounters Encounter Date Encounter Type Care Provider Facility Start: 10-23-2023 End: 10-23-2023 Patient encounter procedure PAXTON Franco Work Phone: [facility] [facility] Start: 10-23-2023 End: 10-23-2023 ambulatory Beena Franco [facility] Work Phone: Start: 10-08-2023 End: 10-08-2023 ambulatory Timi Toledo MD Facility:[facility] Start: 10-03-2023 End: 10-03-2023 ambulatory BEENA FRANCO Not Available Start: 09-11-2023 End: 09-11-2023 ambulatory ROZINA JUAREZ [facility] Start: 08-17-2023 End: 08-17-2023 ambulatory JOSÉ MIGUEL GIRALDO [facility] Start: 08-08-2023 End: 08-08-2023 ambulatory BEENA FRANCO Not Available Start: 08-08-2023 End: 08-08-2023 ambulatory SB DEUTSCH Not Available Start: 07-23-2023 End: 07-23-2023 ambulatory Timi Toledo MD Facility: [facility] Start: 07-06-2023 End: 07-06-2023 Refill Michelle Au RN [facility] Comment on above: Med Refill Start: 07-03-2023 Telephone encounter Tala Justin RN [facility] Comment on above: Pt assist Camilla Start: 05-10-2023 End: 06-08-2023 ambulatory BEENA HERNANDEZ [facility] Start: 05-09-2023 End: 05-09-2023 ambulatory SB DEUTSCH Not Available Start: 04-06-2023 End: 05-10-2023 ambulatory BEENA HERNANDEZ [facility] Start: 03-26-2023 End: 03-26-2023 ambulatory Timi Toledo MD Facility:[facility] Start: 03-12-2023 End: 03-12-2023 ambulatory SANGEETHA BARRAGAN Not Available Start: 03-05-2023 End: 03-05-2023 ambulatory Timi Toledo MD Facility: [facility] Start: 01-01-2023 End: 01-01-2023 ambulatory Timi Toledo MD Facility: [facility] Start: 12-04-2022 End: 12-04-2022 ambulatory Timi Toledo MD Facility:[facility] Start: 05-20-2018 Patient encounter procedure Tala Justin RN [facility] Procedures Date Procedure Procedure Detail Performing Clinician Start: 07-20-2021 Adult depression scr eening assessment Tala Justin RN Plan of Treatment Date Care Activity Detail Author Start: 08-30-2032 DTaP,Tdap and Td Vaccines (3 - Td or Tdap) DTaP,Tdap and Td Vaccines (3 - Td or Tdap) [facility] Start: 02-16-2024 Adult BMI Screening Adult BMI Screening [facility] Start: 02-16-2024 Tobacco Screening Tobacco Screening [facility] Start: 08-17-2023 End: 08-17-2023 Patient encounter procedure 08/17/2023 9:00 AM EDT Office Visit [facility] [address] [facility] [address] [place] [address] José Miguel Giraldo MD [address] [place] [address] [facility] Start: 08-16-2023 End: 08-16-2023 Patient encounter procedure 08/16/2023 2:30 PM EDT Office Visit [facility] [address] [place] [id number] [place] [address] [place] [address] [facility] Start: 12-08-2022 COVID-19 Vaccine ( season) COVID-19 Vaccine () [facility] Start: 07-20-2022 Depression Screening Depression Screening [facility] Start: 06-13-2022 Fall Risk Screening Fall Risk Screening [facility] Start: 1987 Administration of varicella zoster vaccine Zoster (Shingles) Vaccine (1 of 2) [facility] Start: 1955 Adult BMI Follow Up Plan Adult BMI Follow Up Plan [facility] Immunizations Immunization Date Immunization Notes Care Provider Fa cility 08-30-2022 tetanus toxoid, redu sophy diphtheria toxoid, and acellular pertussis vaccine, adsorbed Tala Justin RN [facility] 01-19-2021 Influenza, High-dose , Quadrivalent Tala Justin RN [facility] 02-02-2020 Influenza, High-dose , Quadrivalent Tala Justin RN [facility] 01-21-2019 influenza, injectabl e, quadrivalent, preservative free Tala Justin RN [facility] 01-21-2019 tetanus toxoid, redu sophy diphtheria toxoid, and acellular pertussis vaccine, adsorbed Tala Justin RN [facility] 04-25-2018 pneumococcal polysaccharide vaccine, 23 valent Tala Justin RN [facility] 01-02-2018 influenza, high dose seasonal, preservative-free Tala Justin RN [facility] 01-12-2017 influenza, injectabl e, quadrivalent, preservative free Tala Justin RN [facility] 01-13-2016 influenza virus vacc ine, unspecified formulation Tala Justin RN [facility] 03-23-2015 pneumococcal conjuga te vaccine, 13 valent Tala Justin RN [facility] Payers Date Payer Category Payer Self-pay 2022 Private Health Insurance 2014 Medicare AETNA MEDICARE A ETNA MEDICARE PLAN (PPO) [id number] 2014-Present [phone] [address] [place] [address] [id number] 2014 Medicare [id number] 1937 Unknown [id number] 2.840.1.287726.3.579.2.1 286 1937 Unknown [id number] 2.0.1.714021.3.579.2.1 286 1937 Unknown [id number] 2.16.840.1.091028.3.579.2.1 286 1937 Unknown [id number] 2.16.840.1.893644.3.579.2.1 286 1937 Unknown [id number] 2.16.840.1.346397.3.579.2.1 286 1937 Unknown [id number] 2.16.840.1.784620.3.579.2.1 286 1937 Unknown [id number] 2.16.840.1.446245.3.579.2.1 286 1937 Unknown [id number] 2.16.840.1.333800.3.579.2.1 259 1937 Unknown [id number] 2.16.840.1.090540.3.579.2.1 259 1937 Unknown [id number] 2.16.840.1.943143.3.579.2.1 259 1937 Unknown [id number] 2.16.840.1.336468.3.579.2.1 259 1937 Unknown [id number] 2.16.840.1.937799.3.579.2.1 259 1937 Unknown [id number] 2.16.840.1.259514.3.579.2.1 96 1937 Unknown [id number] 2.16.840.1.885616.3.579.2.1 96 1937 Unknown [id number] 2.16.840.1.443982.3.579.2.1 96 1937 Unknown [id number] 2.16.840.1.132159.3.579.2.1 96 1937 Unknown [id number] 2.16.840.1.353511.3.579.2.1 96 1937 Unknown [id number] 2.16.840.1.181328.3.579.2.1 96 Unknown [id number] 2.16.840.1.914049.3.579.2.5 31 Social History Date Type Detail Facility Start: 08-07-2022 Tobacco smoking stat us DEIS Never smoked tobacco [facility] Start: 08-07-2022 Tobacco use and exposure Smokeless tobacco non-user [facility] Start: 02-15-2023 Alcohol intake Lifetime non-d abhi (finding) [facility] Start: 05-20-2020 End: 02-15-2023 History of Social function [facility] Start: 05-20-2020 End: 02-15-2023 Tobacco use panel [facility] Adolescent depressio n screening assessment 0 [facility] Start: 1935 Sex Assigned At Not on file P [facility] Start: 1935 Sex Assigned At Male F [facility] Note 07-06-2023 Telephone Encounter - Michelle Au RN - 07/06/2023 10:55 AM EDT Note Date & Type Note Facility 07-06-2023 Miscellaneous Notes Formattin g of this note might be different from the original. Pt stopped by office after lab work to request refills of eliquis. OV 08/07/22, pt scheduled for f/u 08/17/23 07/06/23 CMP, MAG 08/30/22 CBC documented in this encounter [facility] Telephone encounter Note 07-06-2023 Telephone Encounter - Michelle Au RN - 07/06/2023 10:55 AM EDT Note Date & Type Note Facility 07-06-2023 Telephone encount er Note Pt stopped by office after lab work to request refills of eliquis. OV 08/07/22, pt scheduled for f/u 08/17/23 07/06/23 CMP, MAG 08/30/22 CBC [facility] Note 07-03-2023 Telephone Encounter - Tala Justin RN - 07/03/2023 9:53 AM EDT Note Date & Type Note Facility 07-03-2023 Miscellaneous Notes Formattin g of this note might be different from the original. New enrollment forms w/ financial information faxed to [facility] documented in this encounter [facility] Telephone encounter Note 07-03-2023 Telephone Encounter - Tala Justin RN - 07/03/2023 9:53 AM EDT Note Date & Type Note Facility 07-03-2023 Telephone encount er Note New enrollment forms w/ financial information faxed to [facility] Evaluation note Note Date & Type Note Facility Evaluation note No assessment information [facility] Work Phone: Instructions Note Date & Type Note Facility Instructions Not on filedocumented in this en counter [facility] Instructions Note Date & Type Note Facility Instructions Not on filedocumented in this en counter [facility] Summary Purpose Family History No Family History Records FoundNo Family History Records FoundNo Family History Records FoundNo Family History Records Found Advance Directives No Advanced Directives Records Found Advance Directive Response Recorded Date/ Time Advance Directives No October 22 6:53pm Chief Complaint and Reason for Visit Chief Complaint Parkinsons, DDD, david id dream Additional Source Comments Reason for Visit (unrecogniz ed section and content) Reason Onset Date Comments Pt assist Eliquis 07/03/2023 Reason Onset Date Comments Med Refill 07/06/2023 Care Teams (unrecognized sec tion and content) Cargo Checker Relationship Specialty Start Date End Date Rozina Juarez MD [address] [place], [place] [id number] PCP - General Family Medicine 10/12/21 Cargo Checker Relationship Specialty Start Date End Date Rozina Juarez MD [address] [place] [id number] PCP - General Family Medicine 10/12/21 Team Status: Inactive Member Role Status Dates PAXTON Beth Attending Provider Active Start: October 23, 2023 End: October 23, 2023 (unrecognized sect ion and content) No Status Records FoundNo Status Records FoundNo Status Records FoundNo Status Records Found INFORMATION SOURCE (unrecogn ized section and content) DATE CREATED AUTHOR 09/12/2023 [facility] DATE CREATED AUTHOR AUTHOR'S ORGANIZ ATION 10/04/2023 [facility] DATE CREATED AUTHOR AUTHOR'S ORGANIZ ATION 10/11/2023 [facility] DATE CREATED AUTHOR AUTHOR'S ORGANIZ ATION 10/27/2023 [facility] Goals (unrecognized section and content) Goals may be documented in a n alternate section FOR RECORDS PERTAINING TO PATIENTS WHO ARE [...] BE BASED ON THE PRIMARY CLINICAL RECORDS. [facility]. provides no warranty or guarantee of the accuracy or completeness of information in this document.
[2023-10-29 10:59] VITALS: BP 139/90; PULSE 66; TEMP 36.2; O2SAT 97
[2023-10-29 11:29] VITALS: BP 137/91; BP 153/90; PULSE 77; PULSE 91; O2SAT 94; O2SAT 98
--- NOTE | 2023-10-29 11:33 | W.PM.PROCNOT ---
Date of procedure: 10/29/23 Pre-op diagnosis: Pain due to lumbar spondylosis without myelopathy Post-op diagnosis: same as pre-op Procedure: Procedure: Bilateral L2-3, L3-4 medial branch block Medications: Bupivacaine 0.25% 6cc The patient was seen and examined in the preoperative holding area.? An informed consent was obtained and placed on the chart.? The patient was brought to the medical procedure unit and placed in the prone position.? A timeout was completed verifying correct patient, procedure site, positioning, plan, and special equipment.? Using aseptic technique, the needle was placed at left L2. Under direct fluoroscopic visualization a Quincke-tipped spinal needle was advanced to the junction of the superior articulating process with the transverse process at the designated medial branch segment.? Preceded by negative aspiration, the above-mentioned injectate was placed in 1 mL aliquots.? The procedure was repeated at left L3, 4.? The needle was removed and insertion site was covered. The same procedure, at the same levels, was completed on the right side. The patient was taken to the postprocedural recovery area and monitored for an appropriate length of time before found suitable for discharge in the company of a responsible adult. Anesthesia: Local Surgeon: Timi Toledo Pathology: none sent Condition: stable Disposition: no change
[2023-10-29] MEDS: BUPIVACAINE HCL 0.25% PF 25 MG/10 ML VIAL 8 ML INJ (11:34)
[2023-10-29] MEDS: LIDOCAINE HCL 2% 400 MG/20 ML MDV INJ (11:34)
== END 2023-10-29 11:38 | disposition home or self-care (01) ==
PROVIDERS: Visit Provider Anesthesiology
DX: M47.816 Spondylosis without myelopathy or radiculopathy, lumbar region (principal); R52 Pain, unspecified
CPT/HCPCS: 64493; 64494; J0665

== ENCOUNTER 2023-10-31 12:25 | Outpatient (OUT) | payer MEDICARE, SELFPAY ==
--- OUTSIDE RECORDS SUMMARY | 2023-10-31 12:37 | XMS_ITS | CCD ---
Author Organization [facility] Care Team Providers Care Battery Container Tester Name Role Phone Rozina Juarez MD Primary [...] Marie Attending Unavailable PAXTON Franco Attending Provider Beena Franco Attending Unavailable Beena Franco Admitting [...] ABSOLUTE BASOPHIL 0.0 X10E9/L Normal 0.0-0.2 [facility] Comment on above: Performed By: #### C BCA #### [facility] ([id number]) [address] [place] [address]199 ABSOLUTE NEUTROPHIL 4.9 X10E9/L Normal 1.5-6.6 [facility] Comment on above: Performed By: #### C BCA #### [facility] ([id number]) [address] [place] [address] 91119 Basophils/100 WBC (Bld) 0.4 % Normal [facility] Comment on above: Performed By: #### C BCA #### [facility] ([id number]) [address] [place] [address] 67096 Eosinophils (Bld) [#/Vol] 0.1 10*3/uL Normal 0.0-0.4 [facility] Comment on above: Performed By: #### C BCA #### [facility] ([id number]) [address] [place] [address] 22866 Eosinophils/100 WBC (Bld) 1.4 % Normal [facility] Comment on above: Performed By: #### C BCA #### [facility] ([id number]) [address] [place] [address] 75341 Erythrocyte distribution width (RBC) [Ratio] 13.3 % Normal 11.5-15.0 [facility] Comment on above: Performed By: #### C BCA #### [facility] ([id number]) [address] [place] [address] 53226 Hematocrit (Bld) [Volume fraction] 41.1 % Normal 39-49 [facility] Comment on above: Performed By: #### C BCA #### [facility] ([id number]) [address] [place] [address] 22296 Hemoglobin (Bld) [Mass/Vol] 14.2 g/dL Normal 13.0-17.0 [facility] Comment on above: Performed By: #### C BCA #### [facility] ([id number]) [address] [place] [address] 45153 Lymphocytes (Bld) [#/Vol] 1.6 10*3/uL Normal 1.0-3.5 [facility] Comment on above: Performed By: #### C BCA #### [facility] ([id number]) [address] [place] [address] 18897 Lymphocytes/100 WBC (Bld) 20.6 % Normal [facility] Comment on above: Performed By: #### C BCA #### [facility] ([id number]) [address] [place] [address] 43337 MCH (RBC) [Entitic mass] 33.1 pg Normal 27-34 [facility] Comment on above: Performed By: #### C BCA #### [facility] ([id number]) [address] [place] [address] 32130 MCHC (RBC) [Mass/Vol] 34.6 g/dL Normal 32-36 [facility] Comment on above: Performed By: #### C BCA #### [facility] ([id number]) [address] [place] [address] 39316 MCV (RBC) [Entitic vol] 96 fL Normal 80-100 [facility] Comment on above: Performed By: #### C BCA #### [facility] ([id number]) [address] [place] [address] 86869 Monocytes (Bld) [#/Vol] 1.0 10*3/uL High 0-0.9 [facility] Comment on above: Performed By: #### C BCA #### [facility] ([id number]) [address] [place] [address] 63092 Monocytes/100 WBC (Bld) 13.4 % Normal [facility] Comment on above: Performed By: #### C BCA #### [facility] ([id number]) [address] [place] [address] 17244 Neutrophils/100 WBC (Bld) 64.2 % Normal [facility] Comment on above: Performed By: #### C BCA #### [facility] ([id number]) [address] [place] [address] 72186 Platelet mean volume (Bld) [Entitic vol] 7.8 fL Normal 7-12 [facility] Comment on above: Performed By: #### C BCA #### [facility] ([id number]) [address] [place] [address] 04829 Platelets (Bld) [#/Vol] 237 10*3/uL Normal 150-450 [facility] Comment on above: Performed By: #### C BCA #### [facility] ([id number]) [address] [place] [address] 49972 RBC COUNT 4.30 X10E12/L Normal 4.10-5.70 [facility] Comment on above: Performed By: #### C BCA #### [facility] ([id number]) [address] [facility] [place], [place] [address] WBC (Bld) [#/Vol] 7.7 10*3/uL Normal 4.0-11.0 [facility] Comment on above: Performed By: #### C BCA #### [facility] ([id number]) [address] [facility], [place] [address] XR SHOULDER LT MIN 2 VWSon 0 [...] Quintanilla MD on 07/07/2023 8:02 AM Normal [facility] XR SHOULDER RT MIN 2 VWSon 0 [...] Walker MD on 07/07/2023 11:03 AM Normal [facility] COMPREHENSIVE METABOLIC PANE George 07-06-2023 Albumin [Mass/Vol] 4.0 g/dL Normal 3.2-5.3 [facility] Comment on above: Performed By: #### C DINORAH, #### [facility] ([id number]) [address], [address] [place] [address] ALP [Catalytic activity/Vol] 64 U/L Normal 39-130 [facility] Comment on above: Performed By: #### C DINORAH, #### [facility] ([id number]) [address], [address] [place] [address] ALT [Catalytic activity/Vol] 5 U/L Normal 0-40 [facility] Comment on above: Performed By: #### Jana COPELAND, #### [facility] ([id number]) [address], [address] [place] [address] Anion gap [Moles/Vol] 9 mmol/L Normal 5-15 [facility] Comment on above: Performed By: #### C DINORAH, #### [facility] ([id number]) [address], [address] [place] [address] AST [Catalytic activity/Vol] 22 U/L Normal 0-41 [facility] Comment on above: Performed By: #### C DINORAH, #### [facility] ([id number]) [address], [address] [place] [address] Bilirubin [Mass/Vol] 0.8 mg/dL Normal 0.3-1.2 [facility] Comment on above: Performed By: #### Jana COPELAND, #### [facility] ([id number]) [address], [address] [place] [address] Calcium [Mass/Vol] 9.2 mg/dL Normal 8.5-10.5 [facility] Comment on above: Performed By: #### Jana COPELAND, #### [facility] ([id number]) [address], [address] [place] [address] Chloride [Moles/Vol] 103 mmol/L Normal 98-109 [facility] Comment on above: Performed By: #### Jana COPELAND, #### [facility] ([id number]) [address], [address] [place] [address] CO2 [Moles/Vol] 27 mmol/L Normal 22-32 [facility] Comment on above: Performed By: #### Jana COPELAND, #### [facility] ([id number]) [address] [place] [address] Creatinine [Mass/Vol] 0.86 mg/dL Normal 0.60-1.30 [facility] Comment on above: Result Comment: METH OD TRACEABLE TO IDMS STANDARD Performed By: #### Jana COPELAND, #### [facility] ([id number]) [address], [address] [place] [address] GFR/1.73 sq M.predicted among non-blacks MDRD (S/P/Bld) [Vol rate/Area] 84 mL/min/{1.73_m2} Normal >59 [facility] Comment on above: Result Comment: Reported eGFR is based on the CKD-EPI 1 equation that does not use a race coefficient. Performed By: #### Jana COPELAND, #### [facility] ([id number]) [address], [address] [place] [address] Glucose [Mass/Vol] 89 mg/dL Normal 65-99 [facility] Comment on above: Performed By: #### Jana COPELAND, #### [facility] ([id number]) [address], [address] [place] [address] Potassium [Moles/Vol] 4.3 mmol/L Normal 3.5-5.0 [facility] Comment on above: Performed By: #### C DINORAH, 95549-0 #### [facility] ([id number]) [address], [address] [place] [address] Protein [Mass/Vol] 7.0 g/dL Normal 6.0-8.0 [facility] Comment on above: Performed By: #### C DINORAH, [id number] #### [facility] ([id number]) [address], [address] [place] [address] Sodium [Moles/Vol] 139 mmol/L Normal 134-146 [facility] Comment on above: Performed By: #### Jana COPELAND, [id number] #### [facility] ([id number]) [address], [address] [place] [address] Urea nitrogen [Mass/Vol] 17 mg/dL Normal 5-27 [facility] Comment on above: Performed By: #### Jana COPELAND, 59105-7 #### [facility] ([id number]) [address], [address] [place] [address] MAGNESIUMon 07-06-2023 Magnesium [Mass/Vol] 2.0 mg/dL Normal 1.8-2.6 [facility] Comment on above: Performed By: #### C DINORAH, 29386-5 #### [facility] ([id number]) [address], [address] [place] [address] Encounters Encounter Date Encounter Type Care Provider Facility Start: 10-23-2023 End: 10-23-2023 Patient encounter procedure PAXTON Franco Work Phone: [facility] [facility] Start: 10-23-2023 End: 10-23-2023 ambulatory Beena Franco [facility] Work Phone: Start: 10-08-2023 End: 10-08-2023 ambulatory Timi Toledo MD Facility:[facility] Start: 10-03-2023 End: 10-03-2023 ambulatory BEENA FRANCO Not Available Start: 09-11-2023 End: 09-11-2023 ambulatory ROZINA JUAREZ [facility] Start: 08-17-2023 End: 08-17-2023 ambulatory JOSÉ MIGUEL GIRALDO [facility] Start: 08-08-2023 End: 08-08-2023 ambulatory BEENA FRANCO [...] Start: 05-10-2023 End: 06-08-2023 ambulatory BEENA HERNANDEZ [facility] Start: 05-09-2023 End: 05-09-2023 ambulatory SB DEUTSCH Not Available Start: 04-06-2023 End: 05-10-2023 ambulatory BEENA HERNANDEZ [facility] Start: 03-26-2023 End: 03-26-2023 ambulatory Timi Toledo MD Facility:[facility] Start: 03-12-2023 End: 03-12-2023 ambulatory SANGEETHA BARRAGAN Not Available Start: 03-05-2023 End: 03-05-2023 ambulatory Timi Toledo MD Facility: [facility] Start: 01-01-2023 End: 01-01-2023 ambulatory Timi Toledo MD Facility: [facility] Start: 12-04-2022 End: 12-04-2022 ambulatory Timi Toledo MD Facility:[facility] Start: 05-20-2018 Patient encounter procedure Tala Justin RN [facility] Procedures Date Procedure Procedure Detail Performing Clinician Start: 07-20-2021 Adult depression scr eening assessment Tala Justin RN Plan of Treatment Date Care Activity Detail Author Start: 08-30-2032 DTaP,Tdap and Td Vaccines (3 - Td or Tdap) DTaP,Tdap and Td Vaccines (3 - Td or Tdap) [facility] Start: 02-16-2024 Adult BMI Screening Adult BMI Screening [facility] Start: 02-16-2024 Tobacco Screening Tobacco Screening [facility] Start: 08-17-2023 End: 08-17-2023 Patient encounter procedure 08/17/2023 9:00 AM EDT Office Visit [facility] [address] [address] [place] [address] José Miguel Giraldo MD [address] [place] [address] [facility] Start: 08-16-2023 End: 08-16-2023 Patient encounter procedure 08/16/2023 2:30 PM EDT Office Visit [facility] [address] [place] [id number] [place] [address] [place] [address] [facility] Start: 12-08-2022 COVID-19 Vaccine ( season) COVID-19 Vaccine () [facility] Start: 07-20-2022 Depression Screening Depression Screening [facility] Start: 06-13-2022 Fall Risk Screening Fall Risk Screening [facility] Start: 1987 Administration of varicella zoster vaccine Zoster (Shingles) Vaccine (1 of 2) [facility] Start: 1955 Adult BMI Follow Up Plan Adult BMI Follow Up Plan [facility] Immunizations Immunization Date Immunization Notes Care Provider Fa cility 08-30-2022 tetanus toxoid, redu sophy diphtheria toxoid, and acellular pertussis vaccine, adsorbed Tala Justin RN [facility] 01-19-2021 Influenza, High-dose , Quadrivalent Tala Justin RN [facility] 02-02-2020 Influenza, High-dose , Quadrivalent Tala Justin RN [facility] 01-21-2019 influenza, injectabl e, quadrivalent, preservative free Tala Justin RN [facility] 01-21-2019 tetanus toxoid, redu sophy diphtheria toxoid, and acellular pertussis vaccine, adsorbed Tala Justin RN [facility] 04-25-2018 pneumococcal polysaccharide vaccine, 23 valent Tala Justin RN [facility] 01-02-2018 influenza, high dose seasonal, preservative-free Tala Justin RN [facility] 01-12-2017 influenza, injectabl e, quadrivalent, preservative free Tala Justin RN [facility] 01-13-2016 influenza virus vacc ine, unspecified formulation Tlaa Justin RN [facility] 03-23-2015 pneumococcal conjuga te vaccine, 13 valent Tala Justin RN [facility] Payers Date Payer Category Payer Self-pay 2022 Private Health Insurance 2014 Medicare AETNA MEDICARE A ETNA MEDICARE PLAN (PPO) [id number] 2014-Present [phone] [address] [place] [address] [id number] 2014 Medicare [id number] 1937 Unknown [id number] 2.840.1.471765.3.579.2.1 286 1937 Unknown [id number] 2.0.1.269393.3.579.2.1 286 1937 Unknown [id number] 2.16.840.1.130772.3.579.2.1 286 1937 Unknown [id number] 2.16.840.1.936150.3.579.2.1 286 1937 Unknown [id number] 2.16.840.1.829858.3.579.2.1 286 1937 Unknown [id number] 2.16.840.1.930122.3.579.2.1 286 1937 Unknown [id number] 2.16.840.1.330383.3.579.2.1 286 1937 Unknown [id number] 2.16.840.1.907913.3.579.2.1 259 1937 Unknown [id number] 2.16.840.1.154827.3.579.2.1 259 1937 Unknown [id number] 2.16.840.1.369744.3.579.2.1 259 1937 Unknown [id number] 2.16.840.1.086461.3.579.2.1 259 1937 Unknown [id number] 2.16.840.1.601695.3.579.2.1 259 1937 Unknown [id number] 2.16.840.1.066847.3.579.2.1 96 1937 Unknown [id number] 2.16.840.1.022815.3.579.2.1 96 1937 Unknown [id number] 2.16.840.1.812457.3.579.2.1 96 1937 Unknown [id number] 2.16.840.1.506648.3.579.2.1 96 1937 Unknown [id number] 2.16.840.1.930494.3.579.2.1 96 1937 Unknown [id number] 2.16.840.1.388486.3.579.2.1 96 Unknown [id number] 2.16.840.1.026649.3.579.2.5 31 Social History Date Type Detail Facility Start: 08-07-2022 Tobacco smoking stat us KYIS Never smoked tobacco [facility] Start: 08-07-2022 Tobacco use and exposure Smokeless tobacco non-user [facility] Start: 02-15-2023 Alcohol intake Lifetime non-d abhi (finding) [facility] Start: 05-20-2020 End: 02-15-2023 History of Social function [facility] Start: 05-20-2020 End: 02-15-2023 Tobacco use panel [facility] Adolescent depressio n screening assessment 0 [facility] Start: 1935 Sex Assigned At Not on file [facility] Start: 1935 Sex Assigned At Male F [facility] Note 07-06-2023 Telephone Encounter - Michelle Au RN - 07/06/2023 10:55 AM EDT Note Date & Type Note Facility 07-06-2023 Miscellaneous Notes Formattin g of this note might be different from the original. Pt stopped by office after lab work to request refills of eliquis. OV 08/07/22, pt scheduled for f/u 08/17/23 07/06/23 CMP, MAG 08/30/22 CBC documented in this encounter [facility] Telephone encounter Note 07-06-2023 Telephone Encounter - Michelle Au RN - 07/06/2023 10:55 AM EDT Note Date & Type Note Facility 07-06-2023 Telephone encount er Note Pt stopped by office after lab work to request refills of eliquis. OV 08/07/22, pt scheduled for f/u 08/17/23 07/06/23 CMP, MAG 08/30/22 CBC [facility] Note 07-03-2023 Telephone Encounter - Tala [...] Note Facility Evaluation note No assessment information [facility] Work Phone: Instructions Note Date & [...] Care Teams (unrecognized sec tion and content) Battery Container Tester Relationship Specialty Start Date End Date Rozina Juarez MD [address] [place], [place] [id number] PCP - General Family Medicine 10/12/21 Battery Container Tester Relationship Specialty Start Date End Date Rozina Juarez MD [address] [place] [id number] PCP - General Family Medicine 10/12/21 Team Status: Inactive Member Role Status Dates PAXTON Beth Attending Provider Active Start: October 23, 2023 End: October 23, 2023 (unrecognized sect ion and content) No Status Records FoundNo Status Records FoundNo Status Records FoundNo Status Records Found INFORMATION SOURCE (unrecogn ized section and content) DATE CREATED AUTHOR 09/12/2023 [facility] DATE CREATED AUTHOR AUTHOR'S ORGANIZ ATION 10/04/2023 [facility] DATE CREATED AUTHOR AUTHOR'S ORGANIZ ATION 10/11/2023 [facility] DATE CREATED AUTHOR AUTHOR'S ORGANIZ ATION 10/27/2023 [facility] Goals (unrecognized section and [...] BE BASED ON THE PRIMARY CLINICAL RECORDS. [employer] [facility]. provides no warranty or guarantee of the accuracy or completeness of information in this document.
--- NOTE | 2023-10-31 12:50 | P.CN_ITS ---
Consult Note: HPI Data of Consult Patient: known to practice within the last 3 years Consult date: 07/23/23 Requesting Physician: Sana Smith NP Primary Care Provider: Non-Staff Physician, MD Consult Narrative Reason for consult: left shoulder pain, low back pain Narrative: Vance Cosme a pleasant 77 year old male presents for evaluation of chronic low back pain and bilateral leg weakness, as well as bilateral shoulder pain. Pain 3/10 today. In the past, no improvement from bilateral L3-4 and bilateral L4-5 TFESIs. Stopped tramadol as it caused constipation and did not help enough. Tylenol with mild benefit. No NSAIDs with eliquis. Could not tolerate cymablta as this caused shaking and weakness. Completed greater than 6 weeks of PT without benefit. Patient reporting >50% ongoing improvement in pain and functional ability since left shoulder injection with Dr Toledo. Chronic low back pain increasing to 7/10 with standing walking activity, improved with sitting. bilateral L2-3 L3-4 facet medial branch block #1 with >80% improvement in low back pain immediately following and hours after the injection. bilateral L2-3 L3-4 facet medial branch block #2 with no improvement. patient now reporting pain over L2 facets. 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 - Acquired absence of unspecified finger(s) (ICD-10) H/O elbow surgery ?Z98.890 - Other specified postprocedural states (ICD-10) S/P cataract extraction ?Z98.49 - Cataract extraction status, unspecified eye (ICD-10) S/P hernia repair ?Z98.890 - Other specified postprocedural states (ICD-10) ?Z87.19 - Personal history of other diseases of the digestive system (ICD-10) S/P left knee arthroscopy ?Z98.890 - Other specified postprocedural states (ICD-10) S/P total knee arthroplasty ?Z96.659 - Presence of unspecified artificial knee joint (ICD-10) S/P shoulder surgery ?Z98.890 - Other specified postprocedural states (ICD-10) S/P bunionectomy ?Z98.890 - Other specified postprocedural states (ICD-10) Social History Smoking status: Never smoker Meds Home Medications and Allergies Home Medications ?Medication ?Instructions ?Recorded ?Confirmed ?Type acetaminophen 650 mg 650 mg PO Q8H PRN pain 12/04/22 10/29/23 History tablet,extended release (8 Hour Pain Reliever) apixaban 5 mg tablet (Eliquis) 5 mg PO BID 12/04/22 10/29/23 History ascorbic acid (vitamin C) 500 mg 500 mg PO DAILY 12/04/22 10/29/23 History tablet (C-500) cholecalciferol (vitamin D3) 25 25 mcg PO DAILY 12/04/22 10/29/23 History mcg (1,000 unit) tablet (Vitamin D3) furosemide 20 mg tablet (Lasix) 20 mg PO DAILY 12/04/22 10/29/23 History magnesium 200 mg tablet 400 mg PO DAILY 12/04/22 10/29/23 History metoprolol succinate 25 mg 25 mg PO BID 12/04/22 10/29/23 History tablet,extended release 24 hr (Toprol XL) multivitamin 1 tab PO DAILY 12/04/22 10/29/23 History vitamin E 268 mg (400 unit) capsule 268 mg PO DAILY 12/04/22 10/29/23 History carbidopa 25 mg-levodopa 100 mg 1 tab PO TID 07/04/23 10/29/23 History tablet (Sinemet) Allergies Allergy/AdvReac Type Severity Reaction Status Date / Time No Known Drug Allergies Allergy Verified 10/29/23 10:58 Exam Constitutional Documenting provider has reviewed patient's vital signs: yes Common normals: no apparent distress, oriented x3, healthy appearing, alert and well nourished General appearance: cooperative HENMT Common normals: normocephalic, hearing grossly normal bilaterally and moist oral mucous membranes Head and scalp: normocephalic Eye Common normals: PERRL Pupil: PERRL Neck & C-Spine Common normals: full ROM General: normal visual inspection Chest Common normals: inspection of chest normal Respiratory Common normals: normal respiratory effort, no retractions and no use of accessory muscles Back & Pelvis Lumbar spine/lower back: ROM limited, pain with ROM and straight leg raise negative bilaterally Other: weakness upon standing and with walking symptoms improved with sitting positive facet loading bilaterally Extremity Common normals: normal to inspection and full ROM Right upper extremity: shoulder joint Left upper extremity: shoulder joint Other: bilateral shoulder pain, positive scratch test, positive empty can, tenderness over bilateral AC joints. ROM intact Neuro Common normals: oriented x3, CN's II-XII intact bilaterally, moves all extremities, no focal motor deficits, no sensory deficits noted and deep tendon reflexes 2+ bilaterally Sensorium/orientation: alert Motor exam: strength 5/5 throughout and no movement abnormalities noted Psych Common normals: mental status grossly normal, thought process normal, cooperative, affect normal, speech normal and activity/motor behavior normal Speech: normal speech Thought process: normal thought process Results Additional Findings Additional findings: If on a controlled substance or opioids, I have checked an [place] report on this patient and there are no aberrancies noted in the prescribing history.??If on a controlled substance or opioid a drug screen was completed and reviewed within the last year, and if there has not been a drug screen completed we ordered one today to monitor higher risk, state monitored pain medication use. As part of providing excellent, safe, comprehensive care, the following was completed at our patient's visit: 1. A medication reconciliation and review to ensure accurate knowledge of current/active medications, including asking our patients to inform us about any [id number] medications or herbal remedies/nutritional supplements/alternative remedies. 2. A review to specifically ensure our patients have had annual screening for screening for depression, screening for tobacco use, and screening for unhealthy alcohol use. For concerning screenings had a discussion with the patient, provided patient education, and recommended follow-up with primary care provider when appropriate. If patient noted with a risk of falling, they received education on strength, gait, and balance training to prevent future risk of falling. 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 cannot take NSAIDs as he is on eliquis f/u after injection
== END 2023-10-31 12:26 | disposition home or self-care (01) ==
LOC: PM 12:25
PROVIDERS: Visit Provider Nurse Practitioner
DX: M47.816 Spondylosis without myelopathy or radiculopathy, lumbar region (principal); M19.012 Primary osteoarthritis, left shoulder; M48.062 Spinal stenosis, lumbar region with neurogenic claudication
CPT/HCPCS: G0463

== ENCOUNTER 2023-11-26 09:29 | Day surgery (SDC) | payer MEDICARE, SELFPAY ==
[2023-11-26 10:17] VITALS: BP 146/90; PULSE 78; TEMP 36.3; O2SAT 97
[2023-11-26] MEDS: BUPIVACAINE HCL 0.25% PF 25 MG/10 ML VIAL 8 ML INJ (10:59)
[2023-11-26] MEDS: LIDOCAINE HCL 2% 400 MG/20 ML MDV INJ (11:00)
[2023-11-26 11:01] VITALS: BP 130/69; BP 133/74; PULSE 81; PULSE 84; O2SAT 96; O2SAT 97
--- NOTE | 2023-11-26 11:01 | W.PM.PROCNOT ---
Date of procedure: 11/26/23 Pre-op diagnosis: Pain due to lumbar spondylosis without myelopathy Post-op diagnosis: same as pre-op Procedure: Procedure: Bilateral T12-L1, L1-2 medial branch block Medications: Bupivacaine 0.25% 6cc The patient was seen and examined in the preoperative holding area.? An informed consent was obtained and placed on the chart.? The patient was brought to the medical procedure unit and placed in the prone position.? A timeout was completed verifying correct patient, procedure site, positioning, plan, and special equipment.? Using aseptic technique, the needle was placed at left T12. Under direct fluoroscopic visualization a Quincke-tipped spinal needle was advanced to the junction of the superior articulating process with the transverse process at the designated medial branch segment.? Preceded by negative aspiration, the above-mentioned injectate was placed in 1 mL aliquots.? The procedure was repeated at left L1, 2.? The needle was removed and insertion site was covered. The same procedure, at the same levels, was completed on the right side. The patient was taken to the postprocedural recovery area and monitored for an appropriate length of time before found suitable for discharge in the company of a responsible adult. Anesthesia: Local Surgeon: Timi Toledo Pathology: none sent Condition: stable Disposition: no change
== END 2023-11-26 11:05 | disposition home or self-care (01) ==
LOC: SURGOUT 09:29
PROVIDERS: Visit Provider Anesthesiology
DX: M47.816 Spondylosis without myelopathy or radiculopathy, lumbar region (principal)
CPT/HCPCS: 64490; 64493; 64494; J0665

== ENCOUNTER 2023-11-28 13:52 | Outpatient (OUT) | payer MEDICARE, SELFPAY ==
--- OUTSIDE RECORDS SUMMARY | 2023-11-28 14:12 | XMS_ITS | CCD ---
Author Organization [facility] Care Team Providers Care Manufacturing Team Member Name Role Phone Rozina Juarez MD Primary [...] Unavailable JUAREZ, ROZINA L Primary Care Unavailable PAXTON Franco Attending Provider Beena Franco Attending Unavailable Beena Franco Admitting Unavailable Tre BETANOCURT, Timi Kenney Attending Unavailable Girichard BETANCOURT, Andrius Anne Marie Attending Unavailable Gidebbiraitis , Andrius Anne Marie Attending Unavailable Gidebbiraitis , Andrius Anne Marie Attending Unavailable Giedraitis , Andrius Anne Marie Attending Unavailable Giedraitis , Andrius Anne Marie Attending Unavailable Gidebbiraitis , Andrius Anne Marie Attending Unavailable SB DEUTSCH Attending Unavailable SB DEUTSCH Attending Unavailable BEENA FRANCO Attending Unavailable SANGEETHA BARRAGAN Attending Unavailable BEENA FRANCO Attending Unavailable SB DEUTSCH Attending Unavailable BEENA FRANCO Attending Unavailable Medications [...] (2 sources) Anticholinergic, beta2-Adrenergic Agonist Start: 02-16-20 tiotropium-olodateroL (STIOLTO RESPIMAT) 2.5-2.5 mcg/actuation mist Indications: [...] unspecified] Onset: 09-10-2020 09-10-2020 Chronic Parkinson`s disease (2 sources) Parkinson`s disease; Translations: [Parkinson's disease without dyskinesia, [...] 24 ABSOLUTE BASOPHIL 0.0 X10E9/L Normal 0.0-0.2 [facility] Comment on above: Performed By: #### C BCA #### [facility] ([id number]) [address] [place] [address] 11102 ABSOLUTE NEUTROPHIL 4.9 X10E9/L Normal 1.5-6.6 [facility] Comment on above: Performed By: #### C BCA #### [facility] ([id number]) [address] [place] [address] 86971 Basophils/100 WBC (Bld) 0.4 % Normal [facility] Comment on above: Performed By: #### C BCA #### [facility] ([id number]) [address] [place] [address] 54579 Eosinophils (Bld) [#/Vol] 0.1 10*3/uL Normal 0.0-0.4 [facility] Comment on above: Performed By: #### C BCA #### [facility] ([id number]) [address] [place] [address] 22687 Eosinophils/100 WBC (Bld) 1.4 % Normal [facility] Comment on above: Performed By: #### C BCA #### [facility] ([id number]) [address] [place] [address] 60319 Erythrocyte distribution width (RBC) [Ratio] 13.3 % Normal 11.5-15.0 [facility] Comment on above: Performed By: #### C BCA #### [facility] ([id number]) [address] [place] [address] 88535 Hematocrit (Bld) [Volume fraction] 41.1 % Normal 39-49 [facility] Comment on above: Performed By: #### C BCA #### [facility] ([id number]) [address] [place] [address] 24654 Hemoglobin (Bld) [Mass/Vol] 14.2 g/dL Normal 13.0-17.0 [facility] Comment on above: Performed By: #### C BCA #### [facility] ([id number]) [address] [place] [address] 92993 Lymphocytes (Bld) [#/Vol] 1.6 10*3/uL Normal 1.0-3.5 [facility] Comment on above: Performed By: #### C BCA #### [facility] ([id number]) [address] [place] [address] 28981 Lymphocytes/100 WBC (Bld) 20.6 % Normal [facility] Comment on above: Performed By: #### C BCA #### [facility] ([id number]) [address] [place] [address] 36354 MCH (RBC) [Entitic mass] 33.1 pg Normal 27-34 [facility] Comment on above: Performed By: #### C BCA #### [facility] ([id number]) [address] [place] [address] 41176 MCHC (RBC) [Mass/Vol] 34.6 g/dL Normal 32-36 [facility] Comment on above: Performed By: #### C BCA #### [facility] ([id number]) [address] [place] [address] 63806 MCV (RBC) [Entitic vol] 96 fL Normal 80-100 [facility] Comment on above: Performed By: #### C BCA #### [facility] ([id number]) [address] [place] [address] 60935 Monocytes (Bld) [#/Vol] 1.0 10*3/uL High 0-0.9 [facility] Comment on above: Performed By: #### C BCA #### [facility] ([id number]) [address] [place] [address] 13464 Monocytes/100 WBC (Bld) 13.4 % Normal [facility] Comment on above: Performed By: #### C BCA #### [facility] ([id number]) [address] [place] [address] 16333 Neutrophils/100 WBC (Bld) 64.2 % Normal [facility] Comment on above: Performed By: #### C BCA #### [facility] ([id number]) [address] [place] [address] 04281 Platelet mean volume (Bld) [Entitic vol] 7.8 fL Normal 7-12 [facility] Comment on above: Performed By: #### C BCA #### [facility] ([id number]) [address] [place] [address] 79686 Platelets (Bld) [#/Vol] 237 10*3/uL Normal 150-450 [facility] Comment on above: Performed By: #### C BCA #### [facility] ([id number]) [address] [place] [address] RBC COUNT 4.30 X10E12/L Normal 4.10-5.70 [facility] Comment on above: Performed By: #### C BCA #### [facility] ([id number]) [address] [place] [address] 47303 WBC (Bld) [#/Vol] 7.7 10*3/uL Normal 4.0-11.0 [facility] Comment on above: Performed By: #### C BCA #### [facility] ([id number]) [address] [place] [address] 62978 XR SHOULDER LT MIN 2 VWSon 0 [...] Quintanilla MD on 07/07/2023 8:02 AM Normal [facility] XR SHOULDER RT MIN 2 VWSon [...] Walker MD on 07/07/2023 11:03 AM Normal [facility] COMPREHENSIVE METABOLIC PANE George 07-06-2023 Albumin [Mass/Vol] 4.0 g/dL Normal 3.2-5.3 [facility] Comment on above: Performed By: #### Jana COPELAND, #### [facility] ([id number]) [address], [address] [place] [address] ALP [Catalytic activity/Vol] 64 U/L Normal 39-130 [facility] Comment on above: Performed By: #### Jana COPELAND, #### [facility] ([id number]) [address], [address] [place] [address] ALT [Catalytic activity/Vol] 5 U/L Normal 0-40 [facility] Comment on above: Performed By: #### Jana COPELAND, #### [facility] ([id number]) [address], [address] [place] [address] Anion gap [Moles/Vol] 9 mmol/L Normal 5-15 [facility] Comment on above: Performed By: #### Jana COPELAND, #### [facility] ([id number]) [address], [address] [place] [address] AST [Catalytic activity/Vol] 22 U/L Normal 0-41 [facility] Comment on above: Performed By: #### Jana COPELAND, #### [facility] ([id number]) [address], [address] [place] [address] Bilirubin [Mass/Vol] 0.8 mg/dL Normal 0.3-1.2 [facility] Comment on above: Performed By: #### Jana COPELAND, #### [facility] ([id number]) [address], [address] [place] [address] Calcium [Mass/Vol] 9.2 mg/dL Normal 8.5-10.5 [facility] Comment on above: Performed By: #### Jana COPELAND, #### [facility] ([id number]) [address], [address] [place] [address] Chloride [Moles/Vol] 103 mmol/L Normal 98-109 [facility] Comment on above: Performed By: #### Jana COPELAND, #### [facility] ([id number]) [address], [address] [place] [address] CO2 [Moles/Vol] 27 mmol/L Normal 22-32 [facility] Comment on above: Performed By: #### Jana COPELAND, #### [facility] ([id number]) [address] [place] [address] Creatinine [Mass/Vol] 0.86 mg/dL Normal 0.60-1.30 [facility] Comment on above: Result Comment: METH OD TRACEABLE TO IDMS STANDARD Performed By: #### Jana COPELAND, #### [facility] ([id number]) [address], [address] [place] [address] GFR/1.73 sq M.predicted among non-blacks MDRD (S/P/Bld) [Vol rate/Area] 84 mL/min/{1.73_m2} Normal >59 [facility] Comment on above: Result Comment: Reported eGFR is based on the CKD-EPI 2020 equation that does not use a race coefficient. Performed By: #### C DINORAH, #### [facility] ([id number]) [address], [address] [place] [address] Glucose [Mass/Vol] 89 mg/dL Normal 65-99 [facility] Comment on above: Performed By: #### Jana COPELAND, 33194-6 #### [facility] ([id number]) [address], [address] [place] [address] Potassium [Moles/Vol] 4.3 mmol/L Normal 3.5-5.0 [facility] Comment on above: Performed By: #### Jana COPELAND, 64981-9 #### [facility] ([id number]) [address], [address] [place] [address] Protein [Mass/Vol] 7.0 g/dL Normal 6.0-8.0 [facility] Comment on above: Performed By: #### Jana COPELAND, 39404-3 #### [facility] ([id number]) [address], [address] [place] [address] Sodium [Moles/Vol] 139 mmol/L Normal 134-146 [facility] Comment on above: Performed By: #### Jana COPELAND, 14975-6 #### [facility] ([id number]) [address], [address] [place] [address] Urea nitrogen [Mass/Vol] 17 mg/dL Normal 5-27 [facility] Comment on above: Performed By: #### Jana COPELAND, #### [facility] ([id number]) [address], [address] [place] [address] MAGNESIUMon 07-06-2023 Magnesium [Mass/Vol] 2.0 mg/dL Normal 1.8-2.6 [facility] Comment on above: Performed By: #### Jana COPELAND, 86641-0 #### [facility] ([id number]) [address], [address] [place] [address] Encounters Encounter Date Encounter Type Care Provider Facility Start: 11-20-2023 End: 11-20-2023 ambulatory BEENA FRANCO Not Available Start: 11-12-2023 End: 11-12-2023 ambulatory SB DEUTSCH Not Available Start: 10-29-2023 End: 10-29-2023 ambulatory Timi Toledo MD Facility:[facility] Start: 10-23-2023 End: 10-23-2023 Patient encounter procedure DIRECTOR OF ACADEMIC SUPPORT-C Beena Franco Work Phone: [facility] [facility] Start: 10-23-2023 End: 10-23-2023 ambulatory Beena Franco [facility] Work Phone: Start: 10-08-2023 End: 10-08-2023 ambulatory Timi Toledo MD Facility:[facility] Start: 10-03-2023 End: 10-03-2023 ambulatory BEENA FRANCO Not Available Start: 09-11-2023 End: 09-11-2023 ambulatory ROZINA Lau [facility] Start: 08-17-2023 End: 08-17-2023 ambulatory [facility] Start: 08-08-2023 End: 08-08-2023 ambulatory BEENA FRANCO [...] Start: 05-10-2023 End: 06-08-2023 ambulatory BEENA HERNANDEZ [facility] Start: 05-09-2023 End: 05-09-2023 ambulatory SB DEUTSCH Not Available Start: 04-06-2023 End: 05-10-2023 ambulatory BEENA HERNANDEZ [facility] Start: 03-26-2023 End: 03-26-2023 ambulatory [facility]edo [facility] Start: 03-12-2023 End: 03-12-2023 ambulatory SANGEETHA BARRAGAN Not Available Start: 03-05-2023 End: 03-05-2023 ambulatory Timi Toledo MD Facility:[facility] Start: 01-01-2023 End: 01-01-2023 ambulatory Timi Toledo MD Facility:[facility] Start: 12-04-2022 End: 12-04-2022 ambulatory Timi Toledo MD Facility:[facility] Start: 05-20-2018 Patient encounter procedure Tala Justin RN [facility] Procedures Date Procedure Procedure Detail Performing Clinician Start: 07-20-2021 Adult depression scr eening assessment Tala Justin RN Plan of Treatment Date Care Activity Detail Author Start: 08-30-2032 DTaP,Tdap and Td Vaccines (3 - Td or Tdap) DTaP,Tdap and Td Vaccines (3 - Td or Tdap) [facility] Start: 02-16-2024 Adult BMI Screening Adult BMI Screening [facility] Start: 02-16-2024 Tobacco Screening Tobacco Screening [facility] Start: 08-17-2023 End: 08-17-2023 Patient encounter procedure 08/17/2023 9:00 AM EDT Office Visit [facility] [address] [facility] [address] [place] [id number] José Miguel Giraldo MD [address] [place] [address] [facility] Start: 08-16-2023 End: 08-16-2023 Patient encounter procedure 08/16/2023 2:30 PM EDT Office Visit [facility] [address] [place] [address] Jacqui Ortiz DO [address] [facility] [address] [place] [address] [facility] Start: 12-08-2022 COVID-19 Vaccine ( season) COVID-19 Vaccine ( season) [facility] Start: 07-20-2022 Depression Screening Depression Screening [facility] Start: 06-13-2022 Fall Risk Screening Fall Risk Screening [facility] Start: 1987 Administration of varicella zoster vaccine Zoster (Shingles) Vaccine (1 of 2) [facility] Start: 1955 Adult BMI Follow Up Plan Adult BMI Follow Up Plan [facility] Immunizations Immunization Date Immunization Notes Care Provider Fa cility 08-30-2022 tetanus toxoid, redu sophy diphtheria toxoid, and acellular pertussis vaccine, adsorbed Tala uJstin RN [facility] 01-19-2021 Influenza, High-dose , Quadrivalent Tala Justin RN [facility] 02-02-2020 Influenza, High-dose , Quadrivalent Tala Justin RN [facility] 01-21-2019 influenza, injectabl e, quadrivalent, preservative free Tala Justin RN [facility] 01-21-2019 tetanus toxoid, redu sophy diphtheria toxoid, and acellular pertussis vaccine, adsorbed Tala Justin RN [facility] 04-25-2018 pneumococcal polysaccharide vaccine, 23 valent Tala Justin RN [facility] 01-02-2018 influenza, high dose seasonal, preservative-free Tala Justin RN [facility] 01-12-2017 influenza, injectabl e, quadrivalent, preservative free Tala Justin RN [facility] 01-13-2016 influenza virus vacc ine, unspecified formulation Tala Justin RN [facility] 03-23-2015 pneumococcal conjuga te vaccine, 13 valent Tala Justin RN [facility] Payers Date Payer Category Payer Self-pay 2022 Private Health Insurance 2014 Medicare AETNA MEDICARE A ETNA MEDICARE PLAN (PPO) [id number] 2014-Present [phone] [address] [place] [address] [id number] 2014 Medicare [id number] 1937 Unknown [id number] 2.16.840.1.579784.3.579.2.1 286 1937 Unknown [id number] 2.16.840.1.183354.3.579.2.1 286 1937 Unknown [id number] 2.16.840.1.471981.3.579.2.1 286 1937 Unknown [id number] 2.16.840.1.682583.3.579.2.1 286 1937 Unknown [id number] 2.16.840.1.554530.3.579.2.1 286 1937 Unknown [id number] 2.16.840.1.178377.3.579.2.1 286 1937 Unknown [id number] 2.16.840.1.436422.3.579.2.1 286 1937 Unknown [id number] 2.16.840.1.780135.3.579.2.1 96 1937 Unknown [id number] 2.16.840.1.542347.3.579.2.1 96 1937 Unknown [id number] 2.16.840.1.257511.3.579.2.1 96 1937 Unknown [id number] 2.16.840.1.086903.3.579.2.1 96 1937 Unknown [id number] 2.16.840.1.816967.3.579.2.1 96 1937 Unknown [id number] 2.16.840.1.110692.3.579.2.1 96 1937 Unknown [id number] 2.16.840.1.277885.3.579.2.1 96 1937 Unknown [id number] 2.16.840.1.598899.3.579.2.1 259 1937 Unknown [id number] 2.16.840.1.310970.3.579.2.1 259 1937 Unknown [id number] 2.16.840.1.337179.3.579.2.1 259 1937 Unknown [id number] 2.16.840.1.212952.3.579.2.1 259 1937 Unknown [id number] 2.16.840.1.971165.3.579.2.1 259 1937 Unknown [id number] 2.16.840.1.271143.3.579.2.1 259 1937 Unknown [id number] 2.16.840.1.493365.3.579.2.1 259 Unknown [id number] 2.16.840.1.391857.3.579.2.5 31 Social History Date Type Detail Facility [facility] Start: 08-07-2022 Tobacco use and exposure Smokeless tobacco non-user [facility] Start: 02-15-2023 Alcohol intake Lifetime non-d abhi (finding) [facility] Start: 05-20-2020 End: 02-15-2023 History of Social function [facility] Start: 05-20-2020 End: 02-15-2023 Tobacco use panel [facility] Adolescent depressio n screening assessment 0 [facility] Start: 1935 Sex Assigned At Not on file [facility] Start: 1935 Sex Assigned At Male F [facility] Note 07-06-2023 Telephone Encounter - Michelle Au [...] – [place], [place] documented in this encounter [facility] Telephone encounter Note 07-03-2023 Telephone Encounter - Tala Justin RN - 07/03/2023 9:53 AM EDT Note Date & Type Note Facility 07-03-2023 Telephone encount er Note New enrollment forms w/ financial information faxed to [facility] [place] [place] [facility] Evaluation note Note Date & Type Note Facility Evaluation note No assessment information [facility] Work Phone: Instructions Note Date & [...] Care Teams (unrecognized sec tion and content) Manufacturing Team Member Relationship Specialty Start Date End Date Rozina Juarez MD [address] [place] [address] PCP - [facility] 10/12/21 Manufacturing Team Member Relationship Specialty Start Date End Date Rozina Juarez MD [address] [place] [address] PCP - [facility] 10/12/21 Team Status: Inactive Member Role Status Dates Beena Franco NP-C Attending Provider Active Start: October 23, 2023 End: October 23, 2023 (unrecognized sect ion and content) No Status Records FoundNo Status Records FoundNo Status Records FoundNo Status Records Found INFORMATION SOURCE (unrecogn ized section and content) DATE CREATED AUTHOR 09/12/2023 [facility] DATE CREATED AUTHOR AUTHOR'S ORGANIZ ATION 10/31/2023 [facility] DATE CREATED AUTHOR AUTHOR'S ORGANIZ ATION 11/03/2023 [facility] DATE CREATED AUTHOR AUTHOR'S ORGANIZ ATION 11/22/2023 [facility] EPIC Goals (unrecognized section and content) Goals may [...] BE BASED ON THE PRIMARY CLINICAL RECORDS. [facility] [employer] [facility]. provides no warranty or guarantee of the accuracy or completeness of information in this document.
--- NOTE | 2023-11-28 14:20 | PM.CN ---
Consult Note: HPI Data of Consult Patient: known to practice within the last 3 years Consult date: 07/23/23 Requesting Physician: Sana Smith NP Primary Care Provider: Non-Staff Physician, MD Consult Narrative Reason for consult: left shoulder pain, low back pain Narrative: Vance Cosme a pleasant 77 year old male presents for evaluation of chronic low back pain and bilateral leg weakness, as well as bilateral shoulder pain. Pain 2/10 today. In the past, no improvement from bilateral L3-4 and bilateral L4-5 TFESIs. Stopped tramadol as it caused constipation and did not help enough. Tylenol with mild benefit. No NSAIDs with eliquis. Could not tolerate cymablta as this caused shaking and weakness. Completed greater than 6 weeks of PT without benefit. Patient reporting >50% ongoing improvement in pain and functional ability since left shoulder injection with Dr Toledo. Chronic low back pain increasing to 7/10 with standing walking activity, improved with sitting. bilateral L2-3 L3-4 facet medial branch block #1 with >80% improvement in low back pain immediately following and hours after the injection. bilateral L2-3 L3-4 facet medial branch block #2 with no improvement. Most recently failed to respond to bilateral T12-L1 L1-2 MBB. cc:: CC: Sana Smith NP Review of Systems ROS Status of ROS 10 or more systems reviewed and unremarkable except as noted in history and below Musculoskeletal Reports: back pain and joint pain 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 - Acquired absence of unspecified finger(s) (ICD-10) H/O elbow surgery ?Z98.890 - Other specified postprocedural states (ICD-10) S/P cataract extraction ?Z98.49 - Cataract extraction status, unspecified eye (ICD-10) S/P hernia repair ?Z98.890 - Other specified postprocedural states (ICD-10) ?Z87.19 - Personal history of other diseases of the digestive system (ICD-10) S/P left knee arthroscopy ?Z98.890 - Other specified postprocedural states (ICD-10) S/P total knee arthroplasty ?Z96.659 - Presence of unspecified artificial knee joint (ICD-10) S/P shoulder surgery ?Z98.890 - Other specified postprocedural states (ICD-10) S/P bunionectomy ?Z98.890 - Other specified postprocedural states (ICD-10) Social History Smoking status: Never smoker Meds Home Medications and Allergies Home Medications ?Medication ?Instructions ?Recorded ?Confirmed ?Type acetaminophen 650 mg 650 mg PO Q8H PRN pain 12/04/22 11/26/23 History tablet,extended release (8 Hour Pain Reliever) apixaban 5 mg tablet (Eliquis) 5 mg PO BID 12/04/22 11/26/23 History ascorbic acid (vitamin C) 500 mg 500 mg PO DAILY 12/04/22 11/26/23 History tablet (C-500) cholecalciferol (vitamin D3) 25 25 mcg PO DAILY 12/04/22 11/26/23 History mcg (1,000 unit) tablet (Vitamin D3) furosemide 20 mg tablet (Lasix) 20 mg PO DAILY 12/04/22 11/26/23 History magnesium 200 mg tablet 400 mg PO DAILY 12/04/22 11/26/23 History metoprolol succinate 25 mg 25 mg PO BID 12/04/22 11/26/23 History tablet,extended release 24 hr (Toprol XL) multivitamin 1 tab PO DAILY 12/04/22 11/26/23 History vitamin E 268 mg (400 unit) capsule 268 mg PO DAILY 12/04/22 11/26/23 History carbidopa 25 mg-levodopa 100 mg 1 tab PO TID 07/04/23 11/26/23 History tablet (Sinemet) Allergies Allergy/AdvReac Type Severity Reaction Status Date / Time No Known Drug Allergies Allergy Verified 11/26/23 10:18 Exam Constitutional Documenting provider has reviewed patient's vital signs: yes Common normals: no apparent distress, oriented x3, healthy appearing, alert and well nourished General appearance: cooperative HENMT Common normals: normocephalic, hearing grossly normal bilaterally and moist oral mucous membranes Head and scalp: normocephalic Eye Common normals: PERRL Pupil: PERRL Neck & C-Spine Common normals: full ROM General: normal visual inspection Chest Common normals: inspection of chest normal Respiratory Common normals: normal respiratory effort, no retractions and no use of accessory muscles Back & Pelvis Lumbar spine/lower back: ROM limited, pain with ROM and straight leg raise negative bilaterally Other: weakness upon standing and with walking symptoms improved with sitting positive facet loading bilaterally Extremity Common normals: normal to inspection and full ROM Right upper extremity: shoulder joint Left upper extremity: shoulder joint Other: bilateral shoulder pain, positive scratch test, positive empty can, tenderness over bilateral AC joints. ROM intact Neuro Common normals: oriented x3, CN's II-XII intact bilaterally, moves all extremities, no focal motor deficits, no sensory deficits noted and deep tendon reflexes 2+ bilaterally Sensorium/orientation: alert Motor exam: strength 5/5 throughout and no movement abnormalities noted Psych Common normals: mental status grossly normal, thought process normal, cooperative, affect normal, speech normal and activity/motor behavior normal Speech: normal speech Thought process: normal thought process Results Additional Findings Additional findings: If on a controlled substance or opioids, I have checked an [place] report on this patient and there are no aberrancies noted in the prescribing history.??If on a controlled substance or opioid a drug screen was completed and reviewed within the last year, and if there has not been a drug screen completed we ordered one today to monitor higher risk, state monitored pain medication use. As part of providing excellent, safe, comprehensive care, the following was completed at our patient's visit: 1. A medication reconciliation and review to ensure accurate knowledge of current/active medications, including asking our patients to inform us about any [id number] medications or herbal remedies/nutritional supplements/alternative remedies. 2. A review to specifically ensure our patients have had annual screening for screening for depression, screening for tobacco use, and screening for unhealthy alcohol use. For concerning screenings had a discussion with the patient, provided patient education, and recommended follow-up with primary care provider when appropriate. If patient noted with a risk of falling, they received education on strength, gait, and balance training to prevent future risk of falling. 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 cannot take NSAIDs as he is on eliquis f/u PRN
== END 2023-11-28 13:53 | disposition home or self-care (01) ==
LOC: PM 13:53
PROVIDERS: Visit Provider Nurse Practitioner
DX: M47.816 Spondylosis without myelopathy or radiculopathy, lumbar region (principal); M19.012 Primary osteoarthritis, left shoulder; M48.062 Spinal stenosis, lumbar region with neurogenic claudication
CPT/HCPCS: G0463

== ENCOUNTER 2024-02-18 12:51 | Outpatient (OUT) | payer MEDICARE, SELFPAY ==
--- OUTSIDE RECORDS SUMMARY | 2024-02-18 13:17 | XMS_ITS | CCD ---
Author Organization [facility] Inform ion [facility] Care Team Providers Care Manager Of Development Name Role Phone Rozina Juarez MD Primary [...] Attending Unavailable Beena Franco Admitting Unavailable Tre BETANCOURT, Andrius Kenney Attending Unavailable Tre BETANCOURT, Andrius Anne Marie Attending Unavailable Tre BETANCOURT, Andrius Vpat Attending Unavailable Tre BETANCOURT, Andrius Vytrobbie Attending Unavailable Tre BETANCOURT, Andrius Vytrobbie Attending Unavailable Tre BETANCOURT, Andrius Vytrobbie Attending Unavailable Tre BETANCOURT, Andrius Goodytrobbie Attending Unavailable Chula Alvarez MD Unavailable Rozina Juarez MD Primary Care Provider SB AGUIAR Attending Unavailable SB AGUIAR Attending Unavailable SANGEETHA BARRAGAN Attending Unavailable BEENA FRANCO Attending Unavailable BEENA FRANCO Attending Unavailable SB AGUIAR Attending Unavailable BEENA FRANCO Attending Unavailable SB AGUIAR Attending Unavailable Medications Current Medications Medication Drug Class(es) Dates Sig (Normalized) Sig (Original) 8 hr acetaminophen 650 mg extended release oral tablet (4 sources) take 1 tablet by mouth every twelve hours acetaminophen (Tylenol 8 Hour) 650 MG ER tablet Take 650 mg by mouth every 12 (twelve) hours. Active take 1 tablet by shelia th every eight hours as needed for pain acetaminophen (TYLENOL ARTHRITIS) 650 mg 8 hr tablet Take 1 tablet (650 mg total) by mouth every 8 (eight) hours as needed for pain. 0 Active acetaminophen 325 mg / HYDROcodone bitartrate 5 mg oral tablet (2 sources) Opioid Agonist Start: 01-18-2023 take 1 tablet by mouth every eight hours as needed for pain HYDROcodone-acetaminophen (NORCO) 5-325 mg per tablet Take 1 tablet by mouth every 8 (eight) hours as needed for pain. 0 01/18/2023 Active apixaban 5 mg oral tablet (5 sources) Factor Xa Inhibitor Start: 07-31-2022 End: 07-06-2023 take 1 tablet by mouth in the morning, then take 1 tablet by mouth at bedtime apixaban (ELIQUIS) 5 mg tablet Take 1 tablet (5 mg total) by mouth in the morning and 1 tablet (5 mg total) before bedtime. 60 tablet 2 07/06/2023 Active take 1 tablet by mouth every twe lve hours Eliquis 5 MG tablet 5 mg every 12 (twelve) hours. Active ASCORBATE CALCIUM (VITAMIN C ORAL) (2 sources) ASCORBATE CALCIU M (VITAMIN C ORAL) Take by mouth daily. 0 Active ascorbic acid 1000 mg oral tablet (2 sources) Vitamin C take 1 tablet by mouth once daily Ascorbic Acid (vitamin C) 1000 MG tablet Take 1,000 mg by mouth Daily Active carbidopa 25 mg / levodopa 100 mg oral tablet (2 sources) Aromatic Amino Acid Decarboxylation Inhibitor, Aromatic Amino Acid Start: 024 carbidopa-levodopa (Sinemet) 25-100 MG tablet Indications: Parkinson's disease without dyskinesia, without mention of fluctuations (CMS/HCC) TAKE 2 TABLETS BY MOUTH AT 6AM, 10 AM, 2 PM, AND 1 TABLET AT 6 PM FOR 90 DAYS 630 tablet 1 12/17/2023 Active cholecalciferol 0.05 mg oral capsule (6 sources) Vitamin D take 1 tablet by mouth in the morning cholecalciferol (Vitamin D-3) 25 MCG (1000 UT) tablet Take 1,000 Units by mouth in the morning. Active take 1 capsule by mo ut every twelve hours cholecalciferol (Vitamin D-3) 50 MCG (20 00 UT) capsule 1 capsule every 12 (twelve) hours. Active take 5 tablets by mouth in the m orning cholecalciferol (VITAMIN D3) 1,000 units tablet Take 5 tablets (5,000 Units total) by mouth in the morning. 0 Active COQ10, LIPOSOMAL UBIQUINOL, ORAL (2 sources) COQ10, LIPOSOMAL UBIQUINOL, ORAL Take by mouth. 0 Active docusate sodium 50 mg oral capsule (4 sources) docusate sodium (Colace) 50 MG capsule Take by mouth Daily. Active furosemide 20 mg oral tablet (4 sources) Loop Diuretic Start: 07-05-2023 furosemide (LASIX) [...] other day 45 tablet 2 05/10/2022 Active take 1 tablet by shelia th once daily furosemide (Lasix) 20 MG tablet Take 20 mg by mouth 1 (one) time each day at the same time. Active magnesium oxide 400 mg oral tablet (4 sources) magnesium oxide (Mag-Ox) 400 MG tablet every 12 (twelve) hours. Active take 1 tablet by shelia th in the morning, then take 1 tablet by mouth at bedtime magnesium oxide (MAG-OX) 400 mg tablet Take 1 tablet (400 mg total) by mouth in the morning and 1 tablet (400 mg total) before bedtime. 0 Active metoprolol tartrate 50 mg oral tablet (4 sources) beta-Adrenergic Hien Start: 05-09-2022 take 1 tablet by mouth in the morning metoprolol tartrate (Lopressor) 50 MG tablet Take 50 mg by mouth in the morning and 50 mg before bedtime. 05/09/2022 Active moxifloxacin 5 mg/ml ophthalmic solution (2 sources) Quinolone Antimicrobial Start: 08-03-2023 moxifloxacin (Vigamox) 0.5 % ophthalmic solution Administer into both eyes 3 (three) times a day 08/03/2023 Active Multiple Vitamins-Minerals (Multivitamin Adults 50+) tablet (2 sources) Multiple Vitamins-Minerals (Multivitamin Adults 50+) tablet as directed Orally Active mv-min/folic/vit K/lycop/coQ10 (DAILY MULTIVITAMIN ORAL) (2 [...] spray (2 sources) Anticholinergic, beta2-Adrenergic Agonist Start: 02-15-2023 tiotropium-olodate roL (STIOLTO RESPIMAT) 2.5-2.5 mcg/actuation mist Indications: Bronchospasm Inhale 2 puffs in the morning. 4 g 10 02/15/2023 Active vitamin b12 2.5 mg sublingual tablet (4 sources) Vitamin B12 Start: 05-15-2017 take 1 tablet under the tongue once daily cyanocobalamin, vitamin B-12, 2,500 mcg tablet, sublingual Indications: Vitamin B [address] 1 tablet under the tongue once daily. 90 tablet 1 05/15/2017 Active take 1 tablet by mouth once jani y cyanocobalamin (Vitamin B-12) 100 MCG tablet Take 100 mcg by mouth Daily Active vitamin e 268 mg oral capsule (2 sources) take 1 capsule by mo [facility] in the morning vitamin E 400 units [...] [Essential (primary) hypertension] Onset: 05-19-2019 05-19-2019 Chronic Mycoses (1 source) Onychomycosis; Translations: [Tinea unguium] 02-12-2024 Episodic Osteoarthritis (4 sources) Osteoarthritis of multiple joints ; Translations: [Polyosteoarthritis, unspecified] Onset: 09-28-2016 09-28-2016 Chronic Other connective tissue disease (1 source) Pain in both feet; Translations: [Pain in right foot] 02-12-2024 Episodic Other eye disorders (1 source) Unspecified entropion [...] Translations: [Obesity, unspecified] Onset: 09-10-2020 09-10-2020 Chronic Other skin disorders (1 source) Dystrophia unguium; Translations: [Nail dystrophy] 02-12-2024 Episodic Parkinson`s disease (2 sources) Parkinson`s disease; Translations: [Parkinson's disease without dyskinesia, without mention of fluctuations] Onset: 04-06-2023 Spondylosis; intervertebral disc disorders; other back problems (4 sources) Lumbosacral spondylosis without myelopathy; Translations: [Spondylosis without myelopathy or radiculopathy, lumbosacral region] Onset: 08-23-2021 09-27-2021 Chronic Unclassified (2 sources) Parkinsonism; Translations: [Parkinsonism, unspecified] Onset: 08-08-2023 08-08-2023 Chronic Unclassified (2 sources) Parkinson's disease; Translations: [Parkinson's disease without dyskinesia or fluctuating manifestations] Onset: 08-08-2023 10-01-2023 Chronic Unclassified (1 source) Chronic atrial fibrillation, [...] above: Performed By: #### C BCA #### [facility] ([id number]) [address] [place] [address], [place] [address] ABSOLUTE NEUTROPHIL 4.9 X10E9/L Normal 1.5-6.6 [facility] Comment on above: Performed By: #### C BCA #### [facility] ([id number]) [address] [place] [address]206 Basophils/100 WBC (Bld) 0.4 % Normal [facility] Comment on above: Performed By: #### C BCA #### [facility] ([id number]) [address] [place] [address] 40985 Eosinophils (Bld) [#/Vol] 0.1 10*3/uL Normal 0.0-0.4 [facility] Comment on above: Performed By: #### C BCA #### [facility] ([id number]) [address] [place] [address] 48131 Eosinophils/100 WBC (Bld) 1.4 % Normal [facility] Comment on above: Performed By: #### C BCA #### [facility] ([id number]) [address] [place] [address] 05967 Erythrocyte distribution width (RBC) [Ratio] 13.3 % Normal 11.5-15.0 [facility] Comment on above: Performed By: #### C BCA #### [facility] ([id number]) [address] [place] [address] 51627 Hematocrit (Bld) [Volume fraction] 41.1 % Normal 39-49 [facility] Comment on above: Performed By: #### C BCA #### [facility] ([id number]) [address] [place] [address] 18908 Hemoglobin (Bld) [Mass/Vol] 14.2 g/dL Normal 13.0-17.0 [facility] Comment on above: Performed By: #### C BCA #### [facility] ([id number]) [address] [place] [address] 44621 Lymphocytes (Bld) [#/Vol] 1.6 10*3/uL Normal 1.0-3.5 [facility] Comment on above: Performed By: #### C BCA #### [facility] ([id number]) [address] [place] [address] 49778 Lymphocytes/100 WBC (Bld) 20.6 % Normal [facility] Comment on above: Performed By: #### C BCA #### [facility] ([id number]) [address] [place] [address] 20109 MCH (RBC) [Entitic mass] 33.1 pg Normal 27-34 [facility] Comment on above: Performed By: #### C BCA #### [facility] ([id number]) [address] [place] [address] 70332 MCHC (RBC) [Mass/Vol] 34.6 g/dL Normal 32-36 [facility] Comment on above: Performed By: #### C BCA #### [facility] ([id number]) [address] [place] [address] 12807 MCV (RBC) [Entitic vol] 96 fL Normal 80-100 [facility] Comment on above: Performed By: #### C BCA #### [facility] ([id number]) [address] [place] [address] 67802 Monocytes (Bld) [#/Vol] 1.0 10*3/uL High 0-0.9 [facility] Comment on above: Performed By: #### C BCA #### [facility] ([id number]) [address] [place] [address] 06787 Monocytes/100 WBC (Bld) 13.4 % Normal [facility] Comment on above: Performed By: #### C BCA #### [facility] ([id number]) [address] [place] [address] 39428 Neutrophils/100 WBC (Bld) 64.2 % Normal [facility] Comment on above: Performed By: #### C BCA #### [facility] ([id number]) [address] [place] [address] 06376 Platelet mean volume (Bld) [Entitic vol] 7.8 fL Normal 7-12 [facility] Comment on above: Performed By: #### C BCA #### [facility] ([id number]) [address] [place] [address] 98734 Platelets (Bld) [#/Vol] 237 10*3/uL Normal 150-450 [facility] Comment on above: Performed By: #### C BCA #### [facility] ([id number]) [address] [place] [address] 58903 RBC COUNT 4.30 X10E12/L Normal 4.10-5.70 [facility] Comment on above: Performed By: #### C BCA #### [facility] ([id number]) [address] [place] [address] 00431 WBC (Bld) [#/Vol] 7.7 10*3/uL Normal 4.0-11.0 [facility] Comment on above: Performed By: #### C BCA #### [facility] ([id number]) [address] [place] [address] 99150 XR SHOULDER LT MIN 2 VWSon 0 [...] Quintanilla MD on 07/07/2023 8:[address] [facility] XR SHOULDER RT MIN 2 VWSon [...] Walker MD on 07/07/2023 11:[address] [facility] COMPREHENSIVE METABOLIC PANE George 07-06-2023 Albumin [Mass/Vol] 4.0 g/dL Normal 3.2-5.3 [facility] Comment on above: Performed By: #### C DINORAH, 73613-7 #### [facility] ([id number]) [address], [address] [place] [address] ALP [Catalytic activity/Vol] 64 U/L Normal 39-130 [facility] Comment on above: Performed By: #### Jana COPELAND, 68432-1 #### [facility] ([id number]) [address], [address] [place] [address] ALT [Catalytic activity/Vol] 5 U/L Normal 0-40 [facility] Comment on above: Performed By: #### Jana COPELAND, 73435-4 #### [facility] ([id number]) [address], [address] [place] [address] Anion gap [Moles/Vol] 9 mmol/L Normal 5-15 [facility] Comment on above: Performed By: #### Jana COPELAND, [id number] #### [facility] ([id number]) [address], [address] [place] [address] AST [Catalytic activity/Vol] 22 U/L Normal 0-41 [facility] Comment on above: Performed By: #### Jana COPELAND, #### [facility] ([id number]) [address], [address] [place] [address] Bilirubin [Mass/Vol] 0.8 mg/dL Normal 0.3-1.2 [facility] Comment on above: Performed By: #### Jana COPELAND, #### [facility] ([id number]) [address], [address] [place] [address] Calcium [Mass/Vol] 9.2 mg/dL Normal 8.5-10.5 [facility] Comment on above: Performed By: #### Jana COPELAND, #### [facility] ([id number]) [address], [address] [place] [address] Chloride [Moles/Vol] 103 mmol/L Normal 98-109 [facility] Comment on above: Performed By: #### Jana COPELAND, #### [facility] ([id number]) [address], [address] [place] [address] CO2 [Moles/Vol] 27 mmol/L Normal 22-32 [facility] Comment on above: Performed By: #### Jana COPELAND, #### [facility] ([id number]) [address], [address] [place] [address] Creatinine [Mass/Vol] 0.86 mg/dL Normal 0.60-1.30 [facility] Comment on above: Result Comment: METH OD TRACEABLE TO IDMS STANDARD Performed By: #### Jana COPELAND, #### [facility] ([id number]) [address], [address] [place] [address] GFR/1.73 sq M.predicted among non-blacks MDRD (S/P/Bld) [Vol rate/Area] 84 mL/min/{1.73_m2} Normal >59 [facility] Comment on above: Result Comment: Reported eGFR is based on the CKD-EPI 2020 equation that does not use a race coefficient. Performed By: #### C DINORAH, #### [facility] ([id number]) [address], [address] [place] [address] Glucose [Mass/Vol] 89 mg/dL Normal 65-99 [facility] Comment on above: Performed By: #### Jana COPELAND, #### [facility] ([id number]) [address], [address] [place] [address] Potassium [Moles/Vol] 4.3 mmol/L Normal 3.5-5.0 [facility] Comment on above: Performed By: #### Jana COPELAND, #### [facility] ([id number]) [address], [address] [place] [address] Protein [Mass/Vol] 7.0 g/dL Normal 6.0-8.0 [facility] Comment on above: Performed By: #### Jana COPELAND, #### [facility] ([id number]) [address], [address] [place] [address] Sodium [Moles/Vol] 139 mmol/L Normal 134-146 [facility] Comment on above: Performed By: #### Jana COPELAND, #### [facility] ([id number]) [address], [address] [place] [address] Urea nitrogen [Mass/Vol] 17 mg/dL Normal 5-27 [facility] Comment on above: Performed By: #### Jana COPELAND, #### [facility] ([id number]) [address], [address] [place] [address] MAGNESIUMon 07-06-2023 Magnesium [Mass/Vol] 2.0 mg/dL Normal 1.8-2.6 [facility] Comment on above: Performed By: #### C , 02340-8 #### [facility] ([id number]) [address], [address] [place] [address] Vital Signs Date Time Vital Sign Value Performing Clinician Faci lity 02-12-2024 08:20-0500 Body height 175.3 cm Sb Rusher DPM Work Phone: [facility] 02-12-2024 08:20-0500 Body mass index (BMI) [Ratio] 32.05 kg/m2 Sb Rusher DPM Work Phone: [facility] 02-12-2024 08:20-0500 Body weight 98.43 kg Sb Cosme DPM Work Phone: [facility] Healthcare Encounters Encounter Date Encounter Type Care Provider Facility Start: 02-12-2024 End: 02-12-2024 Bamboo flowsheet Sb S Rusher DPM Work Phone: [facility] Start: 02-12-2024 End: 02-12-2024 Bamboo flowsheet Sb S Rusher DPM Work Phone: [facility] Start: 02-12-2024 End: 02-12-2024 Patient encounter procedure Sb Aguiar DPM Work Phone: [facility] Comment on above: Onychomycosis (Prima ry Dx); Onychodystrophy; Pain in both feet Start: 02-12-2024 End: 02-12-2024 ambulatory SB AGUIAR Not Available Start: 11-26-2023 End: 11-26-2023 ambulatory Timi Toledo MD Facility: [facility] Start: 11-20-2023 End: 11-20-2023 ambulatory BEENA FRANCO Not Available Start: 11-12-2023 End: 11-12-2023 ambulatory SB AGUIAR Not Available Start: 10-29-2023 End: 10-29-2023 ambulatory Timi Toledo MD Facility:[facility] Start: 10-23-2023 End: 10-23-2023 Patient encounter procedure VESSEL MASTER-C Beena Franco Work Phone: [facility] [facility] Start: 10-23-2023 End: 10-23-2023 ambulatory Beena Franco [facility] Work Phone: Start: 10-08-2023 End: 10-08-2023 ambulatory Timi Toledo MD Facility:[facility] Start: 10-03-2023 End: 10-03-2023 ambulatory BEENA FRANCO Not Available Start: 09-11-2023 End: 09-11-2023 ambulatory ROZINA L [facility] Start: 08-17-2023 End: 08-17-2023 ambulatory [facility] Start: 08-08-2023 End: 08-08-2023 ambulatory BEENA FRANCO Not Available Start: 08-08-2023 End: 08-08-2023 ambulatory SB AGUIAR Not Available Start: 07-23-2023 End: 07-23-2023 ambulatory Timi Toledo MD Facility: [facility] Start: 07-06-2023 End: 07-06-2023 Refill Michelle Au RN [facility] Comment on above: Med Refill Start: 07-03-2023 Telephone encounter Tala Justin RN [facility] Comment on above: Pt assist Camilla Start: 05-10-2023 End: 06-08-2023 ambulatory BEENA [facility]NAN[facility] Start: 05-09-2023 End: 05-09-2023 ambulatory SB AGUIAR Not Available Start: 04-06-2023 End: 05-10-2023 ambulatory BEENA HERNANDEZ [facility] Start: 03-26-2023 End: 03-26-2023 ambulatory Timi Toledo MD Facility: [facility] Start: 03-12-2023 End: 03-12-2023 ambulatory SANGEETHA BARRAGAN Not Available Start: 03-05-2023 End: 03-05-2023 ambulatory Timi Toledo MD Facility:[facility] Start: 01-01-2023 End: 01-01-2023 ambulatory Timi Toledo MD Facility:[facility] Start: 05-20-2018 Patient encounter procedure Tala Justin RN [facility] Procedures Date Procedure Procedure Detail Performing Clinician Start: 07-20-2021 Adult depression scr eening assessment Tala Justin RN Plan of Treatment Date Care Activity Detail Author Start: 08-30-2032 DTaP,Tdap and Td Vac cines (3 - Td or Tdap) DTaP,Tdap and Td Vaccines (3 - Td or Tdap) [facility] Start: 05-19-2024 End: 05-19-2024 Patient encounter procedure 05/19/2024 8:30 AM EST Procedure Visit [facility] [address] [place] [address] Sb Aguiar, DPM [address] [place] [address] [facility] Start: 03-17-2024 End: 03-17-2024 Patient encounter procedure 03/17/2024 2:10 PM EST Office Visit [facility] [address] [place] [phone] Sangeetha Barragan, PA [address] [place] [address] [facility] Start: 03-12-2024 End: 03-12-2024 Patient encounter procedure 03/12/2024 2:00 PM EST Office Visit [facility] [address] [place] [phone] Jorge Aguilar DO [address] [place] [address] [facility] [address] Start: 02-16-2024 Adult BMI Screening Adult BMI Screen ing [facility] Start: 02-16-2024 Tobacco Screening Tobacco Screening [facility] Start: 02-12-2024 End: 02-12-2024 Patient encounter procedure 02/12/2024 8:30 AM EST Procedure Visit [facility] [address] [place] [phone] Sb Aguiar, GULSHAN [address] [place] [address] Arrived [facility] Comment on above: Arrived Start: 12-09-2023 Influenza vaccination Influenz a Vaccine (#1) [facility] Start: 08-17-2023 End: 08-17-2023 Patient encounter procedure 08/17/2023 9:00 AM EDT Office Visit [facility] [address] [place] [phone] José Miguel Giraldo MD [address] [place] [address] [facility] Start: 08-16-2023 End: 08-16-2023 Patient encounter procedure 08/16/2023 2:30 PM EDT Office Visit [facility] [address] [phone] [place] [address] [place] [address] [facility] Start: 12-08-2022 COVID-19 Vaccine ( season) COVID-19 Vaccine ( season) [facility] Start: 07-20-2022 Depression Screening Depression Scre ening [facility] Start: 06-13-2022 Fall Risk Screening Fall Risk Screen ing [facility] Start: 1987 Administration of varicella zoster vaccine Zoster (Shingles) Vaccine (1 of 2) [facility] Start: 1955 Adult BMI Follow Up Plan Adult BMI Follow Up Plan [facility] Immunizations Immunization Date Immunization Notes Care Provider Dima east 02-15-2023 Influenza, Seasonal, Quadrivalent, Adjuvanted Sb Rusher DPM Work Phone: [facility] 02-15-2023 influenza virus vacc ine, unspecified formulation Sb Rusher DPM Work Phone: [facility] 08-30-2022 tetanus toxoid, redu sophy diphtheria toxoid, and acellular pertussis vaccine, adsorbed Tala Margoth RN [facility] 01-20-2022 Influenza, High-dose Seasonal, Quadrivalent, Preservative Free Sb Rusher DPM Work Phone: [facility] 01-19-2021 Influenza, High-dose , Quadrivalent Tala Margoth RN [facility] 02-02-2020 Influenza, High-dose , Quadrivalent Tala Margoth RN [facility] 01-30-2019 influenza, high dose seasonal, preservative-free Sb Rusher DPM Work Phone: [facility] 01-21-2019 influenza, injectabl e, quadrivalent, preservative free Talaelyssa Guzmaner RN [facility] 01-21-2019 tetanus toxoid, redu sophy diphtheria toxoid, and acellular pertussis vaccine, adsorbed Talaelyssa Guzmaner RN [facility] 04-25-2018 pneumococcal polysaccharide vaccine, 23 valent Talaelyssa Justin RN [facility] 01-02-2018 influenza, high dose seasonal, preservative-free Tala Margoth RN [facility] 01-12-2017 influenza, injectabl e, quadrivalent, preservative free Tala Margoth RN [facility] 01-13-2016 influenza virus vacc ine, unspecified formulation Tala Margoth RN [facility] 03-23-2015 pneumococcal conjuga te vaccine, 13 valent Tala Margoth RN [facility] 01-25-2015 influenza, intraderm al, quadrivalent, preservative free, injectable Sb Rusher DPM Work Phone: [facility] 01-22-2014 influenza, seasonal, injectable Sb Aguiar DPM Work Phone: [facility] 01-20-2013 influenza, seasonal, injectable Sb Aguiar DPM Work Phone: [facility] 01-25-2012 influenza, seasonal, injectable, preservative free Sb Aguiar DPM Work Phone: [facility] 02-02-2011 influenza virus vacc ine, whole virus Sb Aguiar DPM Work Phone: [facility] Payers Date Payer Category Payer Self-pay 2023 Medicaid [employer] MEDICARE A DVANTAGE [id number] 2022 Private Health Insurance 2014 Medicare AETNA MEDICARE A ETNA MEDICARE PLAN (PPO) [id number] 2014-Present [phone] [address] [place] [address] [id number] 2014 Medicare [id number] 1937 Unknown [id number] 1937 Unknown [id number] 1937 Unknown [id number] 1937 Unknown [id number] 1937 Unknown [id number] 2.16.840.1.226593.3.579.2. 1286 1935 Unknown [id number] 2.16.840.1.186487.3.579.2. 1286 1935 Unknown [id number] 2.16.840.1.333832.3.579.2. 1286 1937 Unknown [id number] 2.16.840.1.749825.3.579.2. 196 1937 Unknown [id number] 2.16840.1.398277.3.579.2. 196 1937 Unknown [id number] 2.840.1.576598.3.579.2. 196 1937 Unknown [id number] 2.16.840.1.262840.3.579.2. 196 1937 Unknown [id number] 2.16840.1.651064.3.579.2. 196 1937 Unknown [id number] 2.16840.1.449860.3.579.2. 196 1937 Unknown [id number] 2.16840.1.513390.3.579.2. 196 1937 Unknown [id number] 2.16.840.1.684092.3.579.2. 1259 1937 Unknown [id number] 2.16.840.1.441159.3.579.2. 1259 1937 Unknown [id number] 2.16.840.1.750443.3.579.2. 1259 1937 Unknown [id number] 2.16.840.1.993629.3.579.2. 1259 1937 Unknown [id number] 2.16.840.1.412087.3.579.2. 1259 1937 Unknown [id number] 2.16.840.1.523651.3.579.2. 9 1937 Unknown [id number] 2.16.840.1.865907.3.579.2. 1259 1937 Unknown [id number] 2.16.840.1.450456.3.579.2. 1259 Unknown [id number] 2.16.840.1.737436.3.579.2. 531 Social History Date Type Detail Facility Start: 08-07-2022 End: 11-01-2022 Tobacco smoking status NHIS Never smoked tobacco [facility] Start: 08-07-2022 End: 11-01-2022 Tobacco use and exposure Smokeless tobacco non-user [facility] Start: 02-15-2023 End: 02-12-2024 Alcohol intake Lifetime non-drinker (finding) [facility] Start: 02-15-2023 End: 11-20-2023 History of Social function [facility] Start: 02-15-2023 End: 11-20-2023 Tobacco use panel [facility] Adolescent depressio n screening assessment 0 [facility] Start: 1935 Sex Assigned At Not on file P [facility] Start: 1935 Sex Assigned At Male F [facility] Start: 10-11-2022 Alcohol Comment Caffeine intak e: 1-2 cups per day [facility] History of Present illness Narrative 02-12-2024 Sb Aguiar DPM - 02/12/2024 8:30 AM EST Note Date & Type Note Facility 02-12-2024 History of Presen t illness Narrative Images from the original note were not included. Subjective Patient ID: Vance Cosme is a 88 y.o. male who presents for Nail care (Vance Cosme is a 88 y.o. male who presents for Toenail Care.). HPI Established patient returns to clinic for palliative foot care. Review of Systems Constitutional: Negative for activity change and appetite change. Respiratory: Negative for chest tightness and shortness of breath. Cardiovascular: Positive for leg swelling. Negative for chest pain. Endocrine: Negative for cold intolerance and heat intolerance. Musculoskeletal: Positive for arthralgias. Skin: Negative for color change and wound. Allergic/Immunologic: Negative for immunocompromised state. Neurological: Positive for weakness. Negative for numbness. Hematological: Does not bruise/bleed easily. Psychiatric/Behavioral: Negative for agitation and behavioral problems. Medications Current Outpatient Medications: acetaminophen (Tylenol 8 Hour) 650 MG ER tablet, Take 650 mg by mouth every 12 (twelve) hours., Disp: , Rfl: Ascorbic Acid (vitamin C) 1000 MG tablet, Take 1,000 mg by mouth Daily, Disp: , Rfl: carbidopa-levodopa (Sinemet) 25-100 MG tablet, TAKE 2 TABLETS BY MOUTH AT 6AM, 10 AM, 2 PM, AND 1 TABLET AT 6 PM FOR 90 DAYS, Disp: 630 tablet, Rfl: 1 cholecalciferol (Vitamin D-3) 25 MCG (1000 UT) tablet, Take 1,000 Units by mouth in the morning., Disp: , Rfl: cholecalciferol (Vitamin D-3) 50 MCG (2000 UT) capsule, 1 capsule every 12 (twelve) hours., Disp: , Rfl: cyanocobalamin (Vitamin B-12) 100 MCG tablet, Take 100 mcg by mouth Daily, Disp: , Rfl: docusate sodium (Colace) 50 MG capsule, Take by mouth Daily., Disp: , Rfl: Eliquis 5 MG tablet, 5 mg every 12 (twelve) hours., Disp: , Rfl: furosemide (Lasix) 20 MG tablet, Take 20 mg by mouth 1 (one) time each day at the same time., Disp: , Rfl: magnesium oxide (Mag-Ox) 400 MG tablet, every 12 (twelve) hours., Disp: , Rfl: metoprolol tartrate (Lopressor) 50 MG tablet, Take 50 mg by mouth in the morning and 50 mg before bedtime., Disp: , Rfl: moxifloxacin (Vigamox) 0.5 % ophthalmic solution, Administer into both eyes 3 (three) times a day, Disp: , Rfl: Multiple Vitamins-Minerals (Multivitamin Adults 50+) tablet, as directed Orally, Disp: , Rfl: Allergies Patient has no known allergies. Past Surgical History Past Surgical History: Procedure Laterality Date BUNIONECTOMY Bilateral 1988 CATARACT EXTRACTION Bilateral 12/2022 CT ANGIOGRAM HEART CORONARY 09/09/2021 CT ANGIOGRAM TAVR 09/09/2021 ELBOW SURGERY FINGER AMPUTATION Left 1964 HERNIA REPAIR 1988 KNEE ARTHROSCOPY W/ SYNOVECTOMY Left 2013 TOTAL KNEE ARTHROPLASTY Bilateral 2011 Family History Family History Problem Relation Name Age of Onset Stroke Father Cancer Other Melanoma Neg Hx Objective Physical Exam Constitutional: General: He is not in acute distress. HENT: Head: Normocephalic and atraumatic. Cardiovascular: Comments: DP, PT pulses 1/4 bilaterally. Moderate edema bilateral lower extremities. Multiple telangiectasias, varicosities. Pulmonary: Effort: Pulmonary effort is normal. No respiratory distress. Musculoskeletal: Cervical back: Neck supple. Comments: Pes planovalgus deformity bilaterally. Skin: Capillary Refill: Capillary refill takes less than 2 seconds. Comments: 10 toenails exhibit varying degrees of clinical mycosis with thickened appearance, yellow discoloration, crumbly texture and subungual debris. There has been avulsion of the right 2nd toenail with spicule regrowth along the medial and lateral proximal borders. Tenderness to palpation: Hallux toenails bilaterally. All 10 toenails are elongated. Neurological: Mental Status: He is alert. Comments: No loss of protective sensation, gross sensation intact. Psychiatric: Mood and Affect: Mood normal. Behavior: Behavior normal. Assessment/Plan ICD-10-CM 1. Onychomycosis B35.1 2. 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 Pain in both feet M79.671 M79.672 Patient was examined and evaluated. 10 toenails were debrided in length and thickness today utilizing a nail nipper and electric bur pulp grinder and blender without incident. Patient noted relief of symptoms after debridement. Follow-up 3 months for continued palliative foot care. This note was created with the assistance of a speech recognition program. While intending to generate a timely document that accurately reflects the content of the visit, no guarantee can be provided that every grammatical or spelling mistake has been or will be identified or corrected. Thank you for your understanding. Sb Aguiar DPM documented in this encounter [facility] Healthcare Note 03-29-2024 Telephone Encounter - Michelle Au RN - 07/06/2023 10:55 AM EDT Note Date & Type Note Facility 07-06-2023 Miscellaneous Notes Formattin g of this note might be different from the original. Pt stopped by office after lab work to request refills of eliquis. OV 08/07/22, pt scheduled for f/u 08/17/23 07/06/23 CMP, MAG 08/30/22 CBC documented in this encounter [facility] Telephone encounter Note 07-06-2023 Telephone Encounter - Michelle Au RN - 07/06/2023 10:55 AM EDT Note Date & Type Note Facility 07-06-2023 Telephone encount er Note Pt stopped by office after lab work to request refills of eliquis. OV 08/07/22, pt scheduled for f/u 08/17/23 07/06/23 CMP, MAG 08/30/22 CBC [facility] Note 07-03-2023 Telephone Encounter - Tala Justin RN - 07/03/2023 9:53 AM EDT Note Date & Type Note Facility 07-03-2023 Miscellaneous Notes Formattin g of this note might be different from the original. [place] [facility] [place] in this encounter [facility] Telephone encounter Note 07-03-2023 Telephone Encounter - Tala Justin RN - 07/03/2023 9:53 AM EDT Note Date & Type Note Facility 07-03-2023 Telephone encount er Note New enrollment forms w/ [place] information [place] [facility] [place] [facility] Evaluation note Note Date & Type Note Facility Evaluation note No assessment information [facility] Work Phone: Evaluation note Note Date & Type Note Facility Evaluation note Diagnosis Onychomycosis- Primary Dermatophytosis of nail Onychodystrophy Other specified disease of nail Pain in both feet documented in this encounter [facility] Instructions Note Date & Type Note Facility [...] Reason Onset Date Comments Med Refill 07/06/2023 Reason Comments Nail care Vance Cosme is a 88 y.o. male who presents for Toenail Care. Care Teams (unrecognized sec tion and content) Manager Of Development Relationship Specialty Start Date End Date Rozina Juarez MD [address] [place] [address] PCP - General Family Medicine 10/12/21 Manager Of Development Relationship Specialty Start Date End Date Rozina Juarez MD [address] [place] [id number] PCP - General Family Medicine 10/12/21 Team Status: Inactive Member Role Status Dates Beena Franco NP-C Attending Provider Active Start: October 23, 2023 End: October 23, 2023 Manager Of Development Relationship Specialty Start Date End Date Rozina Juarez MD [address] [place] [id number] PCP - General Pediatrics 08/08/23 Chula Alvarez MD [address] [place] [address] Referring Physician Nurse Practitioner 10/30/22 Manager Of Development Relationship Specialty Start Date End Date Rozina Juarez MD [address] [place] [address] PCP - General Pediatrics 08/08/23 Chula Alvarez MD [address] [place] [address] Referring Physician Nurse Practitioner 10/30/22 (unrecognized sect ion and content) No Status Records FoundNo Status Records FoundNo Status Records FoundNo Status Records Found INFORMATION SOURCE (unrecogn ized section and content) DATE CREATED AUTHOR 09/12/2023 [facility] DATE CREATED AUTHOR AUTHOR'S ORGANIZ ATION 10/31/2023 [facility] DATE CREATED AUTHOR AUTHOR'S ORGANIZ ATION 12/07/2023 [facility] DATE CREATED AUTHOR AUTHOR'S ORGANIZ ATION 02/13/2024 [facility] EPIC Goals (unrecognized section [...] BE BASED ON THE PRIMARY CLINICAL RECORDS. [employer] provides no warranty or guarantee of the accuracy or completeness of information in this document.
--- NOTE | 2024-02-18 14:55 | P.CN_ITS ---
Consult Note: HPI Data of Consult Patient: known to practice within the last 3 years Consult date: 02/18/24 Requesting Physician: Timi Toledo MD Primary Care Provider: Non-Staff Physician, Consult Narrative Reason for consult: left shoulder, right hip pain Narrative: 88yom who presents for assessment. worsening left shoulder, right hip pain. previously had left shoulder injection that provided >50% relief for >3 months. no imaging of right hip. uses tylenol as needed. cc:: CC: Timi Toledo MD Review of Systems ROS Status of ROS 10 or more systems reviewed and unremark able except as noted in history and below [facility] Medical History (Updated 02/18/24 @ 14:57 by Timi Toledo MD) Low back pain ?M54.50 - Low back pain, unspecified (ICD-10) Osteoarthritis ?M19.90 - Unspecified osteoarthritis, unspecified site (ICD-10) Sleep apnea ?G47.30 - Sleep apnea, unspecified (ICD-10) Irregular heart beat ?I49.9 - Cardiac arrhythmia, unspecified (ICD-10) Surgical History Hx of surgical amputation of finger ?Z89.029 - Acquired absence of unspecified finger(s) (ICD-10) H/O elbow surgery ?Z98.890 - Other specified postprocedural states (ICD-10) S/P cataract extraction ?Z98.49 - Cataract extraction status, unspecified eye (ICD-10) S/P hernia repair ?Z98.890 - Other specified postprocedural states (ICD-10) ?Z87.19 - Personal history of other diseases of the digestive system (ICD-10) S/P left knee arthroscopy ?Z98.890 - Other specified postprocedural states (ICD-10) S/P total knee arthroplasty ?Z96.659 - Presence of unspecified artificial knee joint (ICD-10) S/P shoulder surgery ?Z98.890 - Other specified postprocedural states (ICD-10) S/P bunionectomy ?Z98.890 - Other specified postprocedural states (ICD-10) Social History Smoking status: Never smoker Meds Home Medications and Allergies Home Medications ?Medication ?Instructions ?Recorded ?Confirmed ?Type acetaminophen 650 mg 650 mg PO Q8H PRN pain 12/04/22 11/26/23 History tablet,extended release (8 Hour Pain Reliever) apixaban 5 mg tablet (Eliquis) 5 mg PO BID 12/04/22 11/26/23 History ascorbic acid (vitamin C) 500 mg 500 mg PO DAILY 12/04/22 11/26/23 History tablet (C-500) cholecalciferol (vitamin D3) 25 25 mcg PO DAILY 12/04/22 11/26/23 History mcg (1,000 unit) tablet (Vitamin D3) furosemide 20 mg tablet (Lasix) 20 mg PO DAILY 12/04/22 11/26/23 History magnesium 200 mg tablet 400 mg PO DAILY 12/04/22 11/26/23 History metoprolol succinate 25 mg 25 mg PO BID 12/04/22 11/26/23 History tablet,extended release 24 hr (Toprol XL) multivitamin 1 tab PO DAILY 12/04/22 11/26/23 History vitamin E 268 mg (400 unit) capsule 268 mg PO DAILY 12/04/22 11/26/23 History carbidopa 25 mg-levodopa 100 mg 1 tab PO TID 07/04/23 11/26/23 History tablet (Sinemet) Allergies Allergy/AdvReac Type Severity Reaction Status Date / Time No Known Drug Allergies Allergy Verified 11/26/23 10:18 Exam Narrative Exam Narrative: Psych-alert and oriented x 3.? Attentive and appropriate, constitutionally normal, displays normal mood and affect per situation.? There are no obvious deficits in memory, reasoning, or intellect.? Skin-no obvious rashes, bruising, erythema noted to the patient's area of pain. Extremities- extremities are warm with minimal edema and palpable pulses. Shoulder - tender to palpation in left shoulder. Pain with abduction, external rotation of left shoulder. Hip-tenderness to palpation is noted over the right hip joint.? Pain is elicited with internal and external rotation of the hip.? Hip provocative maneuvers are positive and consistent with the patient's normal pain.? Coordination remains intact.? Gait remains antalgic. Assessment and Plan Assessment and Plan (1) Primary osteoarthritis, left shoulder: (2) Chronic right hip pain: Plan 88yom who presents for assessment. failed conservative measures. given previous relief and current symptoms, will undergo left shoulder injection. he is in agreement. will obtain right hip xr for hip pain. will likely proceed with right hip injection. meds reviewed, no changes. follow up after procedure. Procedure: Left shoulder injection Medications: Bupivacaine 0.25% 4cc, kenalog 40mg I explained the details of the procedure to the patient including the risks, benefits and alternatives. We had an informed discussion and the patient verbalized understanding and signed the consent form. All questions were answered appropriately.? A time out was performed.? After obtaining a comfortable supine position, the skin overlying the hip, subtrochanteric region, and joint space were prepped with alcohol. A sterile syringe containing the above medication was attached to a 25 guage, 3.5 inch spinal needle under strict aseptic technique. X ray was used to identify the joint space and the femoral neck on the left side.? The needle was than advanced through the subcutaneous tissue after local injection of 1% lidocaine.? The contents of the syringe were gently injected without any resistance into the joint space after contrast (isovue) outlined the appropriate area. The needle was removed and pressure was applied to the injection site to decrease the incidence of ecchymosis and hematoma formation.? A sterile bandage was applied. Post procedural instructions were given to the patient.
== END 2024-02-18 12:52 | disposition home or self-care (01) ==
LOC: PM 12:51
PROVIDERS: Visit Provider Anesthesiology
DX: M25.551 Pain in right hip (principal); G89.29 Other chronic pain; M19.012 Primary osteoarthritis, left shoulder
CPT/HCPCS: 20610; 73502; J0665; J3301

== ENCOUNTER 2024-02-18 13:34 | Outpatient (OUT) | payer MEDICARE, SELFPAY ==
--- NOTE | 2024-02-18 13:43 | XR_ITS ---
The [address] [address] Patient Name: MARTHA KIDD MRN: [id number] date: 1935 Sex: M Assigned Patient Location: [facility] Current Patient Location: [facility] Accession/Order Number: [id number] Exam Date: 02/18/2024 13:47 Report Date: 02/27/2024 06:34 At the request of: YUMI GARSIA Procedure: XR hip RT min 2V PROCEDURE: XR hip RT min 2V HISTORY: Right Hip Pain COMPARISON: None. FINDINGS: BONES:Mild narrowing of the superior lateral aspect of the joint space. No fracture, dislocation, or significant periarticular osteophytes. Sclerosis involving inferior margin of right sacroiliac joint. SOFT TISSUES:No visible soft tissue swelling. EFFUSION:None visible. OTHER: Negative. XR/XR hip RT min 2V IMPRESSION: 1. Mild degenerative changes of the right hip joint. 2. 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 Electronically authenticated by: DONA AGUERO Date: 02/27/2024 06:34
== END 2024-02-18 13:35 | disposition home or self-care (01) ==
LOC: RAD 13:36
PROVIDERS: Visit Provider Anesthesiology
DX: M25.551 Pain in right hip (principal)
CPT/HCPCS: 73502

== ENCOUNTER 2024-03-03 09:28 | Day surgery (SDC) | payer MEDICARE, SELFPAY ==
--- OUTSIDE RECORDS SUMMARY | 2024-03-03 09:49 | XMS_ITS | CCD ---
Author Organization [facility] [employer] Care Team Providers Care Telecasting Engineer Name Role Phone Rozina Juarez MD Primary [...] Franco Attending Unavailable Beena Franco Admitting Unavailable Chula Alvarez MD Unavailable Rozina Juarez MD Primary Care Provider [phone] SB AGUIAR Attending Unavailable SB AGUIAR S Attending Unavailable SANGEETHA BARRAGAN Attending Unavailable BEENA FRANCO Attending Unavailable BEENA FRANCO Attending Unavailable SB AGUIAR Attending Unavailable BEENA FRANCO Attending Unavailable SB AGUIAR Attending Unavailable Giedraitis , Andrius Vytautfer Attending Unavailable Giedraitis , Andrius Vytautas Attending Unavailable Giedraitis , Andrius Vytautas Attending Unavailable Giedraitis , Andrius Vytautas Attending Unavailable Giedraitis MD, Andrius Vytautas Attending Unavailable Giedraitis MD, Andrius Vytautas Attending Unavailable Giedraitis , Timi Kenney Attending Unavailable Medications Current Medications Medication Drug [...] morning. Active take 1 capsule by mo uth every twelve hours cholecalciferol (Vitamin D-3) 50 [...] capsule (2 sources) [facility] vitamin E 400 [...] 24 ABSOLUTE BASOPHIL 0.0 X10E9/L Normal 0.0-0.2 [facility] Comment on above: Performed By: #### C BCA #### [facility] ([id number]) [address] [place] [address] 83565 ABSOLUTE NEUTROPHIL 4.9 X10E9/L Normal 1.5-6.6 [facility] Comment on above: Performed By: #### C BCA #### [facility] ([id number]) [address] [place] [address] 41558 Basophils/100 WBC (Bld) 0.4 % Normal [facility] Comment on above: Performed By: #### C BCA #### [facility] ([id number]) [address] [place] [address] 57592 Eosinophils (Bld) [#/Vol] 0.1 10*3/uL Normal 0.0-0.4 [facility] Comment on above: Performed By: #### C BCA #### [facility] ([id number]) [address] [place] [address] 59718 Eosinophils/100 WBC (Bld) 1.4 % Normal [facility] Comment on above: Performed By: #### C BCA #### [facility] ([id number]) [address] [place] [address] 97858 Erythrocyte distribution width (RBC) [Ratio] 13.3 % Normal 11.5-15.0 [facility] Comment on above: Performed By: #### C BCA #### [facility] ([id number]) [address] [place] [address] 82993 Hematocrit (Bld) [Volume fraction] 41.1 % Normal 39-49 [facility] Comment on above: Performed By: #### C BCA #### [facility] ([id number]) [address] [place] [address] 46306 Hemoglobin (Bld) [Mass/Vol] 14.2 g/dL Normal 13.0-17.0 [facility] Comment on above: Performed By: #### C BCA #### [facility] ([id number]) [address] [place] [address] 76595 Lymphocytes (Bld) [#/Vol] 1.6 10*3/uL Normal 1.0-3.5 [facility] Comment on above: Performed By: #### C BCA #### [facility] ([id number]) [address] [place] [address] 87033 Lymphocytes/100 WBC (Bld) 20.6 % Normal [facility] Comment on above: Performed By: #### C BCA #### [facility] ([id number]) [address] [place] [address] 84987 MCH (RBC) [Entitic mass] 33.1 pg Normal 27-34 [facility] Comment on above: Performed By: #### C BCA #### [facility] ([id number]) [address] [place] [address] 48313 MCHC (RBC) [Mass/Vol] 34.6 g/dL Normal 32-36 [facility] Comment on above: Performed By: #### C BCA #### [facility] ([id number]) [address] [place] [address] 84167 MCV (RBC) [Entitic vol] 96 fL Normal 80-100 [facility] Comment on above: Performed By: #### C BCA #### [facility] ([id number]) [address] [place] [address] 80542 Monocytes (Bld) [#/Vol] 1.0 10*3/uL High 0-0.9 [facility] Comment on above: Performed By: #### C BCA #### [facility] ([id number]) [address] [place] [address] 56674 Monocytes/100 WBC (Bld) 13.4 % Normal [facility] Comment on above: Performed By: #### C BCA #### [facility] ([id number]) [address] [place] [address] 36176 Neutrophils/100 WBC (Bld) 64.2 % Normal [facility] Comment on above: Performed By: #### C BCA #### [facility] ([id number]) [address] [place] [address] [place] [address] Platelet mean volume (Bld) [Entitic vol] 7.8 fL Normal 7-12 [facility] Comment on above: Performed By: #### C BCA #### [facility] ([id number]) [address] [place] [address] 24053 Platelets (Bld) [#/Vol] 237 10*3/uL Normal 150-450 [facility] Comment on above: Performed By: #### C BCA #### [facility] ([id number]) [address] [place] [address] 36826 RBC COUNT 4.30 X10E12/L Normal 4.10-5.70 [facility] Comment on above: Performed By: #### C BCA #### [facility] ([id number]) [address] [place] [address] 02630 WBC (Bld) [#/Vol] 7.7 10*3/uL Normal 4.0-11.0 [facility] Comment on above: Performed By: #### C BCA #### [facility] ([id number]) [address] [place] [address] 55248 XR SHOULDER LT MIN 2 VWSon 0 [...] Quintanilla MD on 07/07/2023 8:02 AM Normal [facility] XR SHOULDER RT MIN 2 VWSon 0 [...] Walker MD on 07/07/2023 11:03 AM Normal [facility] COMPREHENSIVE METABOLIC PANE George 07-06-2023 Albumin [Mass/Vol] 4.0 g/dL Normal 3.2-5.3 [facility] Comment on above: Performed By: #### C , 14939-3 #### [facility] ([id number]) [address], [address] [place] [address] ALP [Catalytic activity/Vol] 64 U/L Normal 39-130 [facility] Comment on above: Performed By: #### Jana COPELAND, 40225-7 #### [facility] ([id number]) [address], [address] [place] [address] ALT [Catalytic activity/Vol] 5 U/L Normal 0-40 [facility] Comment on above: Performed By: #### C DINORAH, 50309-1 #### [facility] ([id number]) [address], [address] [place] [address] Anion gap [Moles/Vol] 9 mmol/L Normal 5-15 [facility] Comment on above: Performed By: #### Jana COPELAND, 87767-2 #### [facility] ([id number]) [address], [address] [place] [address] AST [Catalytic activity/Vol] 22 U/L Normal 0-41 [facility] Comment on above: Performed By: #### Jana COPELAND, #### [facility] ([id number]) [address], [address] [place] [address] Bilirubin [Mass/Vol] 0.8 mg/dL Normal 0.3-1.2 [facility] Comment on above: Performed By: #### Jana COPELAND, #### [facility] ([id number]) [address] [place] [address] Calcium [Mass/Vol] 9.2 mg/dL Normal 8.5-10.5 [facility] Comment on above: Performed By: #### Jana COPELAND, #### [facility] ([id number]) [address] [place] [address] Chloride [Moles/Vol] 103 mmol/L Normal 98-109 [facility] Comment on above: Performed By: #### Jana COPELAND #### [facility] ([id number]) [address] [place] [address] CO2 [Moles/Vol] 27 mmol/L Normal 22-32 [facility] Comment on above: Performed By: #### Jana COPELAND, #### [facility] ([id number]) [address], [address] [place] [address] Creatinine [Mass/Vol] 0.86 mg/dL Normal 0.60-1.30 [facility] Comment on above: Result Comment: METH OD TRACEABLE TO IDMS STANDARD Performed By: #### Jana COPELAND, #### [facility] ([id number]) [address], [address] [place] [address] GFR/1.73 sq M.predicted among non-blacks MDRD (S/P/Bld) [Vol rate/Area] 84 mL/min/{1.73_m2} Normal >59 [facility] Comment on above: Result Comment: Reported eGFR is based on the CKD-EPI 2020 equation that does not use a race coefficient. Performed By: #### C DINORAH, #### [facility] ([id number]) [address] [place] [address] Glucose [Mass/Vol] 89 mg/dL Normal 65-99 [facility] Comment on above: Performed By: #### Jana COPELAND, #### [facility] ([id number]) [address] [place] [address] Potassium [Moles/Vol] 4.3 mmol/L Normal 3.5-5.0 [facility] Comment on above: Performed By: #### Jana COPELAND, #### [facility] ([id number]) [address] [place] [address] Protein [Mass/Vol] 7.0 g/dL Normal 6.0-8.0 [facility] Comment on above: Performed By: #### Jana COPELAND, #### [facility] ([id number]) [address] [place] [address] Sodium [Moles/Vol] 139 mmol/L Normal 134-146 [facility] Comment on above: Performed By: #### Jana COPELAND, #### [facility] ([id number]) [address] [place] [address] Urea nitrogen [Mass/Vol] 17 mg/dL Normal 5-27 [facility] Comment on above: Performed By: #### Jana COPELAND, #### [facility] ([id number]) [address] [place] [address] MAGNESIUMon 07-06-2023 Magnesium [Mass/Vol] 2.0 mg/dL Normal 1.8-2.6 [facility] Comment on above: Performed By: #### C , 24477-8 #### [facility] ([id number]) [address] [place] [address] Vital Signs Date Time Vital Sign Value Performing Clinician [place] laura 02-12-2024 08:20-0500 Body height 175.3 cm Sb Aguiar DPM Work Phone: [facility] 02-12-2024 08:20-0500 Body mass index (BMI) [Ratio] 32.05 kg/m2 Sb Aguiar DPM Work Phone: [facility] 02-12-2024 08:20-0500 Body weight 98.43 kg Sbgumaro Aguiar DPM Work Phone: [facility] Healthcare Encounters Encounter Date Encounter Type Care Provider Facility Start: 02-18-2024 End: 02-18-2024 ambulatory Timi Toledo MD Facility:[facility] Start: 02-12-2024 End: 02-12-2024 Bamboo flowsheet Sb Aguiar DPM Work Phone: [facility] Start: 02-12-2024 End: 02-12-2024 Bamboo flowsheet Sb Aguiar DPM Work Phone: [facility] Start: 02-12-2024 End: 02-12-2024 Patient encounter procedure Sb Aguiar DPM Work Phone: [facility] Comment on above: Onychomycosis (Prima ry Dx); Onychodystrophy; Pain in both feet Start: 02-12-2024 End: 02-12-2024 ambulatory SB AGUIAR Not Available Start: 11-26-2023 End: 11-26-2023 ambulatory Timi Toledo MD Facility: [facility] Start: 11-20-2023 End: 11-20-2023 ambulatory BEENA FRANCO Not Available Start: 11-12-2023 End: 11-12-2023 ambulatory SB TIMMONSHER Not Available Start: 10-29-2023 End: 10-29-2023 ambulatory Timi Toledo MD Facility: [facility] Start: 10-23-2023 End: 10-23-2023 Patient encounter procedure WAX PUMPERJose Franco Work Phone: [facility] Start: 10-23-2023 End: 10-23-2023 ambulatory Beena Franco [facility] Work Phone: Start: 10-08-2023 End: 10-08-2023 ambulatory Timi Toledo MD Facility: [facility] Start: 10-03-2023 End: 10-03-2023 ambulatory BEENA FRANCO Not Available Start: 09-11-2023 End: 09-11-2023 ambulatory ROZINA Lau [facility] Start: 08-17-2023 End: 08-17-2023 ambulatory [facility] Start: 08-08-2023 End: 08-08-2023 ambulatory BEENA [...] Camilla Start: 05-10-2023 End: 06-08-2023 ambulatory BEENA SUE [facility] Start: 05-09-2023 End: 05-09-2023 ambulatory SB AGUIAR Not Available Start: 04-06-2023 End: 05-10-2023 ambulatory BEENA SUE [facility] Start: 03-26-2023 End: 03-26-2023 ambulatory [facility] MD [facility] Start: 03-12-2023 End: 03-12-2023 ambulatory SANGEETHA BARRAGAN Not Available Start: 03-05-2023 End: 03-05-2023 ambulatory Timi Toledo MD Facility:[facility] Start: 05-20-2018 Patient encounter procedure Tala Justin RN [facility] Procedures Date Procedure Procedure Detail Performing Clinician Start: 07-20-2021 Adult depression scr eening assessment Tala Justin RN Plan of Treatment Date Care Activity Detail Author Start: 08-30-2032 DTaP,Tdap and Td Vac cines (3 - Td or Tdap) DTaP,Tdap and Td Vaccines (3 - Td or Tdap) [facility] Start: 05-19-2024 End: 05-19-2024 Patient encounter procedure 05/19/2024 8:30 AM EST Procedure Visit [facility] [address] [place] [phone] Sb Aguiar, DPM [address] [place] [address] [facility] Start: 03-17-2024 End: 03-17-2024 Patient encounter procedure 03/17/2024 2:10 PM EST Office Visit [facility] [address] [place] [phone] Sangeetha Barragan, [place] [address] [place] [address] [facility] Start: 03-12-2024 End: 03-12-2024 Patient encounter procedure 03/12/2024 2:00 PM EST Office Visit [facility] [address] [facility] [place] [phone] Jorge Aguilar DO [address] [place] [address] [facility] Start: 02-16-2024 Adult BMI Screening Adult BMI Screen ing [facility] Start: 02-16-2024 Tobacco Screening Tobacco Screening [facility] Start: 02-12-2024 End: 02-12-2024 Patient encounter procedure 02/12/2024 8:30 AM EST Procedure Visit [facility] [address] [place] [phone] Sb Aguiar, DPKristy [address] [place], [place] [phone] Arrived [facility] Comment on above: Arrived Start: 12-09-2023 Influenza vaccination Influenz a Vaccine (#1) [facility] Start: 08-17-2023 End: 08-17-2023 Patient encounter procedure 08/17/2023 9:00 AM EDT Office Visit [facility] [address] [phone] José Miguel Giraldo MD [address] [place] [address] [facility] Start: 08-16-2023 End: 08-16-2023 Patient encounter procedure 08/16/2023 2:30 PM EDT Office Visit [facility] [address] [place] [phone] [place] [address] [place] [address] [facility] Start: 12-08-2022 COVID-19 Vaccine ( season) COVID-19 Vaccine ( season) [facility] Start: 07-20-2022 Depression Screening Depression Scre ening [facility] Start: 06-13-2022 Fall Risk Screening Fall Risk Screen ing [facility] Start: 1987 Administration of varicella zoster vaccine Zoster (Shingles) Vaccine (1 of 2) [facility] Start: 1955 Adult BMI Follow Up Plan Adult BMI Follow Up Plan [facility] Immunizations Immunization Date Immunization Notes Care Provider Dima east 02-15-2023 Influenza, Seasonal, Quadrivalent, Adjuvanted Sb Rusher DPM Work Phone: [facility] 02-15-2023 influenza virus vacc ine, unspecified formulation Sb Rusher DPM Work Phone: [facility] 08-30-2022 tetanus toxoid, redu sophy diphtheria toxoid, and acellular pertussis vaccine, adsorbed Tala Margoth RN [facility] 01-20-2022 Influenza, High-dose Seasonal, Quadrivalent, Preservative Free Sb Rusher DPM Work Phone: [facility] 01-19-2021 Influenza, High-dose , Quadrivalent Talaelyssa Justin RN [facility] 02-02-2020 Influenza, High-dose , Quadrivalent Talaelyssa Justin RN [facility] 01-30-2019 influenza, high dose seasonal, preservative-free Sb Rusher DPM Work Phone: [facility] 01-21-2019 influenza, injectabl e, quadrivalent, preservative free Tala Justin RN [facility] 01-21-2019 tetanus toxoid, redu sophy diphtheria toxoid, and acellular pertussis vaccine, adsorbed Talaelyssa Justin RN [facility] 04-25-2018 pneumococcal polysaccharide vaccine, 23 valent Tala Justin RN [facility] 01-02-2018 influenza, high dose seasonal, preservative-free Talaelyssa Guzmaner RN [facility] 01-12-2017 influenza, injectabl e, quadrivalent, preservative free Tala Margoth RN [facility] 01-13-2016 influenza virus vacc ine, unspecified formulation Talaelyssa Justin RN [facility] 03-23-2015 pneumococcal conjuga te vaccine, 13 valent Talaelyssa Justin RN [facility] 01-25-2015 influenza, intraderm al, quadrivalent, preservative free, injectable Sb Rusher DPM Work Phone: [facility] 01-22-2014 influenza, seasonal, injectable Sb Aguiar DPM Work Phone: [facility] 01-20-2013 influenza, seasonal, injectable Sb Aguiar DPM Work Phone: [facility] 01-25-2012 influenza, seasonal, injectable, preservative free Sb Aguiar DPM Work Phone: [facility] 02-02-2011 influenza virus vacc ine, whole virus Sb Aguiar DPM Work Phone: [facility] Healthcare Payers Date Payer Category Payer Self-pay 2023 Medicaid A[employer]NA MEDICARE A DVANTAGE [id number] 2022 Private Health Insurance 2014 Medicare AETNA MEDICARE A ETNA MEDICARE PLAN (PPO) [id number] 2014-Present [phone] [address] [place] [address] [id number] 2014 Medicare [id number] 1937 Unknown [id number] 2.16.840.1.916338.3.579.2. 1286 1937 Unknown [id number] 2.16.840.1.718265.3.579.2. 1286 1937 Unknown [id number] 2.16.840.1.886200.3.579.2. 1286 1937 Unknown [id number] 2.16.840.1.582666.3.579.2. 1286 1937 Unknown [id number] 2.16.840.1.639891.3.579.2. 1286 1937 Unknown [id number] 2.16.840.1.013240.3.579.2. 128 1937 Unknown [id number] 2.16.840.1.334132.3.579.2. 1286 1937 Unknown [id number] 2.16.840.1.359068.3.579.2. 1259 1937 Unknown [id number] 2.16.840.1.107318.3.579.2. 9 1937 Unknown [id number] 2.16.840.1.107925.3.579.2. 1258 1937 Unknown [id number] 2.16.840.1.035746.3.579.2. 1258 1937 Unknown [id number] 2.16.840.1.877252.3.579.2. 1258 1937 Unknown [id number] 2.16.840.1.883854.3.579.2. 1259 1937 Unknown [id number] 2.16.840.1.047137.3.579.2. 125 1937 Unknown [id number] 2.16.840.1.609671.3.579.2. 125 1937 Unknown [id number] 2.16.840.1.728313.3.579.2. 1937 Unknown [id number] 2.16.840.1.258038.3.579.2. 1937 Unknown [id number] 2.16.840.1.165546.3.579.2. 196 1937 Unknown [id number] 2.16.840.1.607644.3.579.2. 196 1937 Unknown [id number] 2.16.840.1.977577.3.579.2. 196 1937 Unknown [id number] 2.16.840.1.611297.3.579.2. 196 1937 Unknown [id number] 2.16.840.1.905241.3.579.2. 196 Unknown [id number] 2.16.840.1.425250.3.579.2. 531 Social History Date Type Detail Facility Start: 08-07-2022 End: 11-01-2022 Tobacco smoking status NHIS Never smoked tobacco [facility] Start: 08-07-2022 End: 11-01-2022 Tobacco use and exposure Smokeless tobacco non-user [facility] Start: 02-15-2023 End: 02-12-2024 Alcohol intake Lifetime non-drinker (finding) [facility] Start: 02-15-2023 End: 11-20-2023 History of Social function [facility] Start: 02-15-2023 End: 11-20-2023 Tobacco use panel [facility] Adolescent depressio n screening assessment 0 [facility] Start: 1937 Sex Assigned At Not on file P [facility] Start: 1937 Sex Assigned At Male F [facility] Start: 10-11-2022 Alcohol Comment Caffeine intak [...] utilizing a nail nipper and electric bur facing grinder without incident. Patient noted relief of symptoms [...] Sb Aguiar DPM documented in this encounter [facility] Healthcare Note 07-06-2023 Telephone Encounter - Michelle Au RN - 07/06/2023 10:55 AM EDT Note Date & Type Note Facility 07-06-2023 Miscellaneous Notes Formattin g of this note might be different from the original. Pt stopped by office after lab work to request refills of eliquis. OV 08/07/22, pt scheduled for f/u 08/17/23 07/06/23 CMP, MAG 08/30/22 CBC documented in this encounter [facility] Telephone encounter Note 07-06-2023 Telephone [...] enrollment forms w/ financial information faxed to [facility] documented in this encounter [facility] Telephone encounter Note 07-03-2023 Telephone Encounter - Tala Justin RN - 07/03/2023 9:53 AM EDT Note Date & Type Note Facility 07-03-2023 Telephone encount er Note New enrollment forms w/ financial information faxed to [facility] Evaluation note Note Date & Type Note Facility Evaluation note [facility]: Evaluation note Note Date & [...] Care Teams (unrecognized sec tion and content) Telecasting Engineer Relationship Specialty Start Date End Date Rozina Juarez MD [address] [place], [place] [phone] PCP - General Family Medicine 10/12/21 Telecasting Engineer Relationship Specialty Start Date End Date Rozina Juarez MD [address] [place], [place] [phone] PCP - General Family Medicine 10/12/21 Team Status: Inactive Member Role Status Dates Beena Franco NP-C Attending Provider Active Start: October 23, 2023 End: October 23, 2023 Telecasting Engineer Relationship Specialty Start Date End Date Rozina Juarez MD [address] [place] [id number] PCP - General Pediatrics 08/08/23 Chula Alvarez MD [address] [place] [address] Referring Physician Nurse Practitioner 10/30/22 Telecasting Engineer Relationship Specialty Start Date End Date Rozina Juarez MD [address] [place] [address] PCP - General Pediatrics 08/08/23 Chula Alvarez MD [address] [place] [address] Referring Physician Nurse Practitioner 10/30/22 (unrecognized sect ion and content) No Status Records FoundNo Status Records FoundNo Status Records FoundNo Status Records Found INFORMATION SOURCE (unrecogn ized section and content) DATE CREATED AUTHOR 09/12/2023 [facility] DATE CREATED AUTHOR AUTHOR'S ORGANIZ ATION 10/31/2023 [facility] DATE CREATED AUTHOR AUTHOR'S ORGANIZ ATION 02/13/2024 [facility] EPIC DATE CREATED AUTHOR AUTHOR'S ORGANIZ ATION 02/26/2024 [facility] Goals (unrecognized section and content) Goals may [...] BE BASED ON THE PRIMARY CLINICAL RECORDS. [facility] provides no warranty or guarantee of the accuracy or completeness of information in this document.
[2024-03-03 10:07] VITALS: BP 134/89; PULSE 76; TEMP 36.5; O2SAT 97
[2024-03-03 10:34] VITALS: BP 145/94; BP 183/100; PULSE 90; PULSE 93; O2SAT 96; O2SAT 97
[2024-03-03] MEDS: IOHEXOL 240 MG/ML - 10 ML VIAL 12 MG INJ (10:36)
[2024-03-03] MEDS: BUPIVACAINE HCL 0.25% PF 25 MG/10 ML VIAL 4 ML INJ (10:36)
--- NOTE | 2024-03-03 10:36 | W.PM.PROCNOT ---
Date of procedure: 03/03/24 Pre-op diagnosis: Pain due to right hip osteoarthritis Post-op diagnosis: same as pre-op Procedure: Procedure: Right hip injection Medications: Bupivacaine 0.25% 3cc, kenalog 40mg I explained the details of the procedure to the patient including the risks, benefits and alternatives. We had an informed discussion and the patient verbalized understanding and signed the consent form. All questions were answered appropriately.? A time out was performed.? After obtaining a comfortable supine position, the skin overlying the hip, subtrochanteric region, and joint space were prepped with alcohol. A sterile syringe containing the above medication was attached to a 25 guage, 3.5 inch spinal needle under strict aseptic technique. X ray was used to identify the joint space and the femoral neck on the right side.? The needle was than advanced through the subcutaneous tissue after local injection of 1% lidocaine.? The contents of the syringe were gently injected without any resistance into the joint space after contrast (isovue) outlined the appropriate area. The needle was removed and pressure was applied to the injection site to decrease the incidence of ecchymosis and hematoma formation.? A sterile bandage was applied. Post procedural instructions were given to the patient. Anesthesia: Local Surgeon: Timi Toledo Pathology: none sent Condition: stable Disposition: no change
[2024-03-03] MEDS: LIDOCAINE HCL 2% 400 MG/20 ML MDV INJ (10:37)
[2024-03-03] MEDS: TRIAMCINOLONE ACETONIDE 40 MG/ML VIAL IM (10:37)
== END 2024-03-03 10:41 | disposition home or self-care (01) ==
LOC: SURGOUT 09:29
PROVIDERS: Visit Provider Anesthesiology
DX: M16.11 Unilateral primary osteoarthritis, right hip (principal)
CPT/HCPCS: 20610; 77002; J0665; J3301; Q9966

== ENCOUNTER 2024-03-12 14:36 | Outpatient (OUT) | payer MEDICARE, SELFPAY ==
--- NOTE | 2024-03-12 15:18 | PM.CN ---
Consult Note: HPI Data of Consult Patient: known to practice within the last 3 years Consult date: 02/18/24 Requesting Physician: Sana Smith NP Primary Care Provider: Non-Staff Physician, MD Consult Narrative Reason for consult: left shoulder, right hip pain Narrative: 88yom who presents for assessment. left shoulder injection providing significant relief ongoing. recent right hip injection for OA providing no improvement. cc:: CC: Sana Smith NP Review of Systems ROS Status of ROS 10 or more systems reviewed and unremarkable except as noted in history and below Musculoskeletal Reports: joint pain PFSH PFSH Medical History (Updated 03/12/24 @ 15:22 by Sana Smith NP) Low back pain ?M54.50 - Low back pain, unspecified (ICD-10) Osteoarthritis ?M19.90 - Unspecified osteoarthritis, unspecified site (ICD-10) Sleep apnea ?G47.30 - Sleep apnea, unspecified (ICD-10) Irregular heart beat ?I49.9 - Cardiac arrhythmia, unspecified (ICD-10) Surgical History Hx of surgical amputation of finger ?Z89.029 - Acquired absence of unspecified finger(s) (ICD-10) H/O elbow surgery ?Z98.890 - Other specified postprocedural states (ICD-10) S/P cataract extraction ?Z98.49 - Cataract extraction status, unspecified eye (ICD-10) S/P hernia repair ?Z98.890 - Other specified postprocedural states (ICD-10) ?Z87.19 - Personal history of other diseases of the digestive system (ICD-10) S/P left knee arthroscopy ?Z98.890 - Other specified postprocedural states (ICD-10) S/P total knee arthroplasty ?Z96.659 - Presence of unspecified artificial knee joint (ICD-10) S/P shoulder surgery ?Z98.890 - Other specified postprocedural states (ICD-10) S/P bunionectomy ?Z98.890 - Other specified postprocedural states (ICD-10) Social History Smoking status: Never smoker Meds Home Medications and Allergies Home Medications ?Medication ?Instructions ?Recorded ?Confirmed ?Type acetaminophen 650 mg 650 mg PO Q8H PRN pain 12/04/22 03/03/24 History tablet,extended release (8 Hour Pain Reliever) apixaban 5 mg tablet (Eliquis) 5 mg PO BID 12/04/22 03/03/24 History ascorbic acid (vitamin C) 500 mg 500 mg PO DAILY 12/04/22 03/03/24 History tablet (C-500) cholecalciferol (vitamin D3) 25 25 mcg PO DAILY 12/04/22 03/03/24 History mcg (1,000 unit) tablet (Vitamin D3) furosemide 20 mg tablet (Lasix) 20 mg PO DAILY 12/04/22 03/03/24 History magnesium 200 mg tablet 400 mg PO DAILY 12/04/22 03/03/24 History metoprolol succinate 25 mg 25 mg PO BID 12/04/22 03/03/24 History tablet,extended release 24 hr (Toprol XL) multivitamin 1 tab PO DAILY 12/04/22 03/03/24 History vitamin E 268 mg (400 unit) capsule 268 mg PO DAILY 12/04/22 03/03/24 History carbidopa 25 mg-levodopa 100 mg 1 tab PO TID 07/04/23 03/03/24 History tablet (Sinemet) Allergies Allergy/AdvReac Type Severity Reaction Status Date / Time No Known Drug Allergies Allergy Verified 03/03/24 10:03 Exam Constitutional Documenting provider has reviewed patient's vital signs: yes Common normals: no apparent distress, oriented x3, healthy appearing, alert and well nourished General appearance: cooperative [facility] Common normals: normocephalic, hearing grossly normal bilaterally and moist oral mucous membranes Head and scalp: normocephalic Eye Common normals: PERRL Pupil: PERRL Neck & C-Spine Common normals: full ROM General: normal visual inspection Chest Common normals: inspection of chest normal Respiratory Common normals: normal respiratory effort, no retractions and no use of accessory muscles Back & Pelvis Sacroiliac joints: SI joint(s) abnormal Other: right SIJ positive karly(patricks), gaenslens, thigh thrust, compression test Extremity Left upper extremity: shoulder joint (no pain on exam, full rom. ) Neuro Common normals: oriented x3, CN's II-XII intact bilaterally, moves all extremities, no focal motor deficits, no sensory deficits noted and deep tendon reflexes 2+ bilaterally Sensorium/orientation: alert Motor exam: strength 5/5 throughout and no movement abnormalities noted Psych Common normals: mental status grossly normal, thought process normal, cooperative, affect normal, speech normal and activity/motor behavior normal Speech: normal speech Thought process: normal thought process Results Additional Findings Additional findings: If on a controlled substance or opioids, I have checked an [place] report on this patient and there are no aberrancies noted in the prescribing history.??If on a controlled substance or opioid a drug screen was completed and reviewed within the last year, and if there has not been a drug screen completed we ordered one today to monitor higher risk, state monitored pain medication use. As part of providing excellent, safe, comprehensive care, the following was completed at our patient's visit: 1. A medication reconciliation and review to ensure accurate knowledge of current/active medications, including asking our patients to inform us about any [id number] medications or herbal remedies/nutritional supplements/alternative remedies. 2. A review to specifically ensure our patients have had annual screening for screening for depression, screening for tobacco use, and screening for unhealthy alcohol use. For concerning screenings had a discussion with the patient, provided patient education, and recommended follow-up with primary care provider when appropriate. If patient noted with a risk of falling, they received education on strength, gait, and balance training to prevent future risk of falling. Assessment and Plan Assessment and Plan (1) Osteoarthritis of right hip: (2) Sacroiliac joint dysfunction: Plan right SIJ injection if pt calls to schedule continue current medications continue HEP as tolerated not interested in additional medications f/u PRN or after SIJ injection
== END 2024-03-12 14:37 | disposition home or self-care (01) ==
LOC: PM 14:37
PROVIDERS: Visit Provider Nurse Practitioner
DX: M16.11 Unilateral primary osteoarthritis, right hip (principal); M53.3 Sacrococcygeal disorders, not elsewhere classified
CPT/HCPCS: G0463